=== PATIENT | female | born 1990 | race Caucasian/White ===

== ENCOUNTER 2024-06-26 20:50 | Outpatient (REF) | payer OTHER, SELFPAY | END 2024-06-26 20:51 | disposition home or self-care (01) | LOC: LAB 20:50 | PROVIDERS: PCP Obstetrics & Gynecology; Visit Provider Obstetrics & Gynecology | DX: Z01.419 Encounter for gynecological examination (general) (routine) without abnormal findings (principal) | CPT/HCPCS: 87624; 88175 ==

== ENCOUNTER 2024-07-12 15:58 | Outpatient (REF) | payer OTHER, SELFPAY | END 2024-07-12 15:59 | disposition home or self-care (01) | LOC: LAB 15:58 | PROVIDERS: Visit Provider Obstetrics & Gynecology | DX: N92.0 Excessive and frequent menstruation with regular cycle (principal) | CPT/HCPCS: 88305 ==

== ENCOUNTER 2024-08-03 14:25 | Outpatient (OUT) | payer OTHER, SELFPAY | END 2024-08-03 14:26 | disposition home or self-care (01) | PROVIDERS: Visit Provider Obstetrics & Gynecology | DX: Z01.818 Encounter for other preprocedural examination (principal); Z30.2 Encounter for sterilization; N92.0 Excessive and frequent menstruation with regular cycle; N93.9 Abnormal uterine and vaginal bleeding, unspecified; R10.2 Pelvic and perineal pain ==

== ENCOUNTER 2024-08-11 06:17 | Day surgery (SDC) | payer OTHER, SELFPAY ==
[2024-08-03 15:00] VITALS: BP 111/72; PULSE 66; TEMP 36.4; O2SAT 97; BMI 29.8
[2024-08-11] VITALS (12 sets, daily range): BP systolic 113–153; BP diastolic 64–101; PULSE 62–98; TEMP 36.1–36.2; O2SAT 90–98; BMI 29.8
--- OUTSIDE RECORDS SUMMARY | 2024-08-11 06:20 | XMS_ITS | CCD ---
Author Organization [facility] Care Team Providers Care Driver Salesman Name Role Phone Gonya, Sierra Attending Unavailable Gonya, Sierra Primary Care Unavailable Gonya, Sierra Attending Unavailable Gonya, Sierra Primary Care Unavailable Gonya, Sierra Attending Unavailable Gonya, Sierra Primary Care Unavailable Gonya, Sierra Attending Unavailable Gonya, Sierra Primary Care Unavailable Gonya, Sierra Attending Unavailable Gonya, Sierra Primary Care Unavailable Gonya, Sierra Attending Unavailable Gonya, Sierra Primary Care Unavailable REQUEST, DR NONE LISTED Primary Care Unavaila ALEXANDRA Posadas Attending Unavailable ALEXANDRA AMBROCIO Consulting Unavailable ALEXANDRA AMBROCIO Admitting Unavailable Edmond Parker Consulting Unavailable Anika Villasenor Unavailable Sierra Hardin Unavailable Doris Pizano Unavailable Corazon Goodman Unavailable WILBERTO Villasenor Primary Care Provider TERESA Corley Emergency Provider Jasbir Barr Unavailable WILBERTO Villasenor Primary Care Provider DO Handy Mcnulty Emergency Provider DO Marisol Tavarez Emergency Provider ANIKA VILLASNEOR Primary Care Unavailable CANDELARIA ABRAHAM Attending Unavailable ANIKA VILLASENOR Primary Care Physician Medina Araiza Unavailable Unavailable Lissy Bangura Unavailable Unavailable Kalyan, Amirah Unavailable Unavailable Ernst Stein Attending Unavailable Ernst Stein Attending Unavailable WILBERTO Villasenor Primary Care Provider DO Hank Baker Attending Provider HANK BAKER Attending Unavailable HANK BAKER Attending Unavailable HANK BAKER Attending Unavailable MD Maylin Lazaro Attending Provider NO FAMILY, PHYSICIAN Primary Care Provider Unava ilable Handy Mcnulty Attending Unavailable Handy Mcnulty Admitting Unavailable Anika Villasenor Primary Care Unavailable Hank Baker Attending Unavailable Hank Baker Admitting Unavailable Anika Villasenor Primary Care Unavailable Asaad, Imad Attending Unavailable Asaad, Imad Admitting Unavailable Asaad, Imad Attending Unavailable Asaad, Imad Admitting Unavailable NO FAMILY, PHYSICIAN Primary Care Unavailable Marisol Alexis Attending Unavailable Marisol Alexis Admitting Unavailable Anika Villasenor Primary Care Unavailable Allergies Allergy Classification Reported Allergen(s) Allergy Type Date of Onset Reaction(s) Facility (1 source) No Known Medication Allergies; Translations: [No Known Medication Allergies] Propensity to adverse reactions to drug (disorder) [facility] Repository Medications Current Medications Medication Drug Class(es) Dates Sig (Normalized) Sig (Original) 0.5 ML semaglutide 0.5 MG/ML Auto-Injector [Wegovy] (2 sources) inject 0.25 mg by subcutaneous injection every week Wegovy 0.25 MG/0.5ML 0.25 mg Subcutaneous Once weekly for 30 Active Albuterol (Eqv-ProAir HFA) 90 mcg/inh inhalation aerosol (1 source) Start: 04-30-2023 take 2 puff(s) by inhalation every six hours Albuterol (Eqv-ProAir HFA) 90 mcg/inh inhalation aerosol 2 puff(s), Inhalation, q6hr Shortness of breath or wheezing, 8.5 gm, Refill(s) 0, [facility]/pharmacy #[id number], 162.5, cm, 04/30/23 18:10:00 EDT, Height/Length Dosing, 106, kg, 04/30/23 18:10:00 EDT, Weight Dosing Start Date: 04/30/23 Status: Ordered amoxicillin 500 mg oral capsule (2 sources) Penicillin-class Antibacterial Start: 03-03-2023 take 1 capsule by mouth every eight hours Amoxicillin 500 MG 1 capsule Orally three times a day for 10 day(s) Feb, Active Amphetamine / Dextroamphetamine (1 source) Central Nervous System Stimulant Start: 08-12-2021 amphetamine-dextr oamphetamine 25 mg oral capsule, extended release Refill(s) 0 Start Date: 08/12/21 Status: Ordered cetirizine hydrochloride 10 mg oral tablet (1 source) Histamine-1 Receptor Antagonist Start: 06-16-2022 take 1 tablet by mouth twice daily Cetirizine HCl 10 MG 1 tablet Orally bid for 5 days May, Active dextromethorphan hydrobromide 15 mg / guaiFENesin 400 mg / pseudoephedrine hydrochloride 60 mg oral tablet (1 source) alpha-Adrenergic Agonist, Uncompetitive H-vbdzpi-J-asparta te Receptor Antagonist, Sigma-1 Agonist Start: 04-27-2023 take 1 tablet by mouth every six hours as needed for cough Capmist DM 60-15-400 MG 1 tablet Orally 6 hours as needed for cough, congestion for 7 days Apr, Active [id number] 0.3 ml EPINEPHrine 1 mg/ml auto-injector (4 sources) alpha-Adrenergic Agonist, beta-Adrenergic Agonist, Catecholamine Start: 10-06-2022 EPINEPHrine 0.3 MG/0.3ML as directed for allergic reaction Injection subcut for 30 days Sep, Active Norethindrone-E.Estradi ol-Iron (2 sources) Estrogen Start: 08-24-2021 take 1 tablet by mouth once daily Norethindrone-E.E stradiol-Iron (Blisovi 24 Fe) 1 mg-20 mcg (24)/75 mg (4) tablet Active 1 TAB PO Daily August 24, 2021 12:00am Start: 08-12-2021 Blisovi 24 FE oral tablet Refill(s) 0 Start Date: 08/12/21 Status: Ordered famotidine 20 mg oral tablet (1 source) Histamine-2 Receptor Antagonist Start: 06-16-2022 take 1 tablet by mouth every twelve hours Famotidine 20 MG 1 tablet Orally Twice a day for 7 days May, Active fexofenadine hydrochloride 180 mg oral tablet (6 sources) Histamine-1 Receptor Antagonist Start: 07-04-2024 take 1 tablet by mouth once daily Fexofenadine (Allergy Relief (Fexofenadine)) 180 mg tablet Active 180 MG PO Daily July 04, 2024 12:00am Fexofenadine HCl Active fluticasone propionate 0.05 mg/actuat metered dose nasal spray (2 sources) Corticosteroid Start: 03-03-2023 take 2 spray(s) nasal route once daily Fluticasone Propionate 50 MCG/ACT 2 sprays Nasally Once a day for 14 day(s) Feb, Active homatropine methylbromide 0.3 mg/ml / HYDROcodone bitartrate 1 mg/ml oral solution (1 source) Opioid Agonist, Cholinergic Muscarinic Agonist Start: 04-30-2023 take 5 mL by mouth every six hours homatropine-hydrocodo ne 1.5 mg-5 mg/5 mL oral syrup 5 mL, Oral, q6hr Cough, 120 mL, Refill(s) 0, [facility]/pharmacy #[id number], 162.5, cm, 04/30/23 18:10:00 EDT, Height/Length Dosing, 106, kg, 04/30/23 18:10:00 EDT, Weight Dosing Start Date: 04/30/23 Status: Ordered ibuprofen 600 mg oral tablet (1 source) Nonsteroidal Anti-inflammatory Drug Start: 06-28-2018 take 1 tablet by mouth every six hours ibuprofen 600 mg Tab 600 mg = 1 tab(s), Oral, q6hr, # 20 tab(s), Refills(s) 0, Pharmacy: [facility]/pharmacy #[id number] Start Date: 06/28/18 Status: Ordered Lactobacillus Combination No.4 (Probiotic) 3 billion cell capsule (2 sources) Start: 07-19-2024 take 3 capsules by mouth once daily Lactobacillus Combination No.4 (Probiotic) 3 billion cell capsule Active 3000 MMU CELLS PO Daily July 19, 2024 12:00am administer with a meal lamoTRIgine 200 mg oral tablet (1 source) Mood Stabilizer, Anti-epileptic Agent Start: 08-12-2021 lamotrigine 200 mg Tab Refills(s) 0 Start Date: 08/12/21 Status: Ordered 3 ml liraglutide 6 mg/ml pen injector (4 sources) GLP-1 Receptor Agonist Start: 06-18-2023 Saxenda 18 MG/3ML as directed Subcutaneous Once daily for 30 days Week one 0.6 mg once daily, week two 1.2 mg once daily, week three 1.8 mg once daily, week four 2.4 mg once daily, week 5 and beyond 3 mg daily May, Active Loratadine (4 sources) Claritin PRN Act pierre methylPREDNISolone 4 mg oral tablet (1 source) Corticosteroid Start: 06-16-2022 methylPREDNISolone 4 MG start tomorrow as directed Orally Once a day for 6 days May, Active [employer] (No Known Home Meds) (1 source) Start: 04-11-2024 [facility] [employer] (No Known Home Meds) Active April 11, 2024 12:00am omeprazole 20 mg delayed release oral capsule (15 sources) Proton Pump Inhibitor Start: 07-04-2024 take 2 capsules by mouth once daily in the morning, then take 1 capsule by mouth in the evening Omeprazole Active 40 MG PO Daily July 04, 2024 12:00am 2 capsules in the am, 1 capsule in the pm Start: 05-11-2024 End: 05-25-2024 take 1 capsule by mouth once daily omeprazole 40 mg Cap-DR 40 mg = 1 cap(s), Oral, Daily, X 14 day(s), # 14 cap(s), Refills(s) 0, Pharmacy: [facility]/pharmacy #[id number], 160, cm, 05/11/24 15:25:00 EDT, Height/Length Dosing, 78.7, kg, 05/11/24 15:25:00 EDT, Weight Dosing Start Date: 05/11/24 Stop Date: 05/25/24 Status: Ordered Start: 10-08-2023 End: 04-11-2024 take 40 mg by mouth once daily Omeprazole Discontinued 40 MG PO Daily October 08, 2023 1:00am April 11, 2024 10:23am predniSONE 20 mg oral tablet (11 sources) Start: 03-03-2023 take 1 tablet by mouth every twelve hours predniSONE 20 MG 1 tablet Orally bid for 5 day(s) Feb, Active Start: 08-16-2021 End: 08-24-2021 take 60 mg by mouth once daily at mealtime Prednisone Discontinued 60 MG PO Daily August 16, 2021 12:00am August 24, 2021 1:46pm administer with food or milk Multivitamins (1 source) Start: 05-18-2018 take 1 tablet by mouth once daily Multivitamins 1 tab(s), Oral, Daily, Refill(s) 0 Start Date: 05/18/18 Status: Ordered simethicone 180 mg oral capsule (4 sources) Start: 07-04-2024 take 1 capsule by mouth once daily at bedtime Simethicone (Gas-X Ultra-Strength) 180 mg capsule Active 180 MG PO Daily at bedtime July 04, 2024 12:00am wegovy 0.25 mg/0.5ml solution auto-injector (1 source) inject 0.25 mg by subcutaneous injection every week Wegovy 0.25 MG/0.5ML 0.25 mg Subcutaneous Once weekly for 30 Active Zofran ODT 4 mg Tab-Dis (2 sources) Start: 05-11-2024 take 1 tablet by mouth three times daily Zofran ODT 4 mg Tab-Dis 4 mg = 1 tab(s), Oral, TID, # 15 tab(s), Refills(s) 0, Pharmacy: [facility]/pharmacy #[id number], 160, cm, 05/11/24 15:25:00 EDT, Height/Length Dosing, 78.7, kg, 05/11/24 15:25:00 EDT, Weight Dosing Start Date: 05/11/24 Status: Ordered Start: 04-05-2021 take 1 tablet by hiral th three times daily Zofran ODT 4 mg Tab-Dis 4 mg = 1 tab(s), Oral, TID, # 15 tab(s), Refills(s) 0 Start Date: 04/05/21 Status: Ordered Completed/Discontinued Medications Medication Drug Class(es) Dates Sig (Normalized) Sig (Original) [id number] 200 actuat albuterol 0.09 mg/actuat metered dose inhaler (10 sources) beta2-Adrenergic Agonist Start: 08-16-2021 End: 10-08-2023 take 1 puff(s) by inhalation every four to six hours Albuterol Sulfate (Proventil Hfa) 90 mcg/actuation Hfa Aerosol Inhaler Discontinued 2 PUFF INHALATION EVERY 4-6 HOURS August 16, 2021 12:00am October 08, 2023 10:10pm with spacer take 2 puff(s) by in halation every four to six hours as needed Albuterol Sulfate HFA 108 (90 Base) MCG/ACT 2 puff as needed Inhalation Q4-6 hrs prn Active 24 hr amphetamine aspartate 6.25 mg / amphetamine sulfate 6.25 mg / dextroamphetamine saccharate 6.25 mg / dextroamphetamine sulfate 6.25 mg extended release oral capsule (9 sources) Central Nervous System Stimulant Start: 08-24-2021 End: 10-08-2023 take 1 capsule by mouth once daily, then take 1 capsule by mouth every twenty-four hours Dextroamphetamine-Amphetamine (Adderall Xr) 25 mg capsule,extended release 24hr Discontinued 25 MG PO Daily August 24, 2021 12:00am October 08, 2023 10:10pm azithromycin 250 mg oral tablet (9 sources) Macrolide Antimicrobial Start: 08-26-2021 End: 10-08-2023 take 250 mg by mouth every twenty-four hours Azithromycin Discontinued 250 MG PO Q24H 4 August 26, 2021 12:00am October 08, 2023 10:10pm benzonatate 100 mg oral capsule (9 sources) Non-narcotic Antitussive Start: 04-28-2023 End: 10-08-2023 take 100 mg by mouth three times daily Benzonatate Discontinued 100 MG PO Three times daily April 28, 2023 12:00am October 08, 2023 10:10pm cefdinir 300 mg oral capsule (9 sources) Cephalosporin Antibacterial Start: 08-26-2021 End: 10-08-2023 take 300 mg by mouth twice daily Cefdinir Discontinued 300 MG PO Twice daily 08 26August 26, 2021 12:00am October 08, 2023 10:10pm ciprofloxacin 500 mg oral tablet (8 sources) Quinolone Antimicrobial Start: 11-30-2023 End: 04-11-2024 take 1 tablet by mouth every two hours Ciprofloxacin Hcl (Cipro) 500 mg tablet Discontinued 500 MG PO Twice daily November 30, 2023 1:00am April 11, 2024 10:23am administer dose at least 2 hrs before/6 hrs after dairy products, calcium, zinc, and/or iron-containing products Start: 11-29-2023 take 1 tablet by [facility] every twelve hours Ciprofloxacin HCl 500 MG 1 tablet Orally Twice a day [facility] Nov, Active Dexamethasone (10 sources) Corticosteroid Start: 06-16-2022 DEXAMETHASONE May, 6 mg Norethindrone-E.Estr adiol-Iron (Blisovi 24 Fe) 1 mg-20 mcg (24)/75 mg (4) tablet (8 sources) Start: 08-24-2021 End: 10-08-2023 take 1 tablet by mouth once daily Norethindrone-E.Estr adiol-Iron (Blisovi 24 Fe) 1 mg-20 mcg (24)/75 mg (4) tablet Discontinued 1 TAB PO Daily August 24, 2021 12:00am October 08, 2023 10:10pm Start: 08-24-2021 End: 10-08-2023 take 1 tablet by mouth once daily Norethindrone-E.Estradiol-Iron (Blisovi 24 Fe) 1 mg-20 mcg (24)/75 mg (4) tablet Discontinued 1 TAB PO Daily August 23, 2021 11:00pm October 08, 2023 9:10pm ondansetron 4 mg disintegrating oral tablet (8 sources) Serotonin-3 Receptor Antagonist Start: 11-29-2023 End: 04-11-2024 take 4 mg by mouth every eight hours Ondansetron Discontinued 4 MG PO Q8H November 30, 2023 1:00am April 11, 2024 10:23am pantoprazole 40 mg delayed release oral tablet (8 sources) Proton Pump Inhibitor Start: 11-29-2023 End: 04-11-2024 take 1 tablet by mouth once daily Pantoprazole (Protonix) 40 mg tablet,delayed release (DR/EC) Discontinued 40 MG PO Daily November 30, 2023 1:00am April 11, 2024 10:23am probiotic (4 sources) Start: 07-04-2024 End: 07-19-2024 probiotic Discontinued PO July 04, 2024 12:00am July 19, 2024 11:47am Start: 07-04-2024 probiotic Acti ve PO July 04, 2024 12:00am promethazine hydrochloride 25 mg oral tablet (10 sources) Phenothiazine Start: 10-08-2023 End: 04-11-2024 take 25 mg by mouth three times daily Promethazine Discontinued 25 MG PO Three times daily 15 October 08, 2023 1:00am April 11, 2024 10:23am rivaroxaban 20 mg oral tablet (18 sources) Factor Xa Inhibitor Start: 08-26-2021 End: 10-08-2023 Rivaroxaban (Xarelto) 20 mg tablet Discontinued 20 MG PO Daily August 26, 2021 12:00am October 08, 2023 10:10pm must administer with evening meal This script for months 2 through 5 of the course. Start: 08-25-2021 End: 10-08-2023 take 1 tablet by mouth twice daily at mealtime Rivaroxaban (Xarelto Dvt-Pe Treat 30d Start) 15 mg (42)- 20 mg (9) tablets,dose pack Discontinued 0 PO .COMPLEX August 25, 2021 12:00am October 08, 2023 10:10pm Take one-15 mg tablet twice daily for 21 days, then one-20 mg tablet once daily; must take with meal/food sucralfate 1000 mg oral tablet (17 sources) Aluminum Complex Start: 11-29-2023 End: 04-11-2024 take 1 tablet by mouth four times daily 1 hour(s) before bedtime Sucralfate (Carafate) 1 gram tablet Discontinued 1 GM PO Four times daily 112 November 30, 2023 1:00am April 11, 2024 10:23am administer 1 hour before meals and at bedtime Start: 10-08-2023 End: 04-11-2024 take 1 tablet by mouth twice daily Sucralfate (Carafate) 1 gram tablet Discontinued 1 GM PO Twice daily 10 October 08, 2023 11:39pm April 11, 2024 10:23am Start: 10-08-2023 take 1 tablet by hiral th every twelve hours Sucralfate 1 GM 1 tablet on an empty stomach Orally Twice a day [facility] Sep, Active 24 hr venlafaxine 225 mg extended release oral tablet (9 sources) Serotonin and Norepinephrine Reuptake Inhibitor Start: 04-07-2020 End: 08-24-2021 take 225 mg by mouth once daily Venlafaxine Discontinued 225 MG PO Daily April 07, 2020 12:00am August 24, 2021 1:46pm Problems Active Problems Problem Classification Problem Date Documented Da te Episodic/Chronic Abdominal pain (17 sources) Abdominal pain; Translations: [Unspecified abdominal pain] Onset: 10-08-2023 11-30-2023 Episodic Allergic reactions (20 sources) Other urticaria; Translations: [Anaphylaxis] Onset: 06-16-2022 Resolved: 06-16-2022 Episodic Anxiety disorders (20 sources) Anxiety; Translations: [Other specified anxiety disorders] Onset: 02-17-2022 Resolved: 02-17-2022 Chronic Attention-deficit, conduct, and disruptive behavior disorders (11 sources) Attention deficit hyperactivity disorder, predominantly inattentive type; Translations: [Attention-deficit hyperactivity disorder, predominantly inattentive type] Chronic Attention-deficit, conduct, and disruptive behavior disorders (1 source) Attention-deficit hyperactivity disorder, predominantly inattentive type Onset: 02-17-2022 Resolved: 02-17-2022 Chronic Attention-deficit, conduct, and disruptive behavior disorders (9 sources) Attention deficit hyperactivity disorder; Translations: [Attention-deficit hyperactivity disorder, unspecified type] 08-24-2021 Chronic Complication of device; implant or graft (7 sources) Malposition of intrauterine contraceptive device; Translations: [Displacement of intrauterine contraceptive device, initial encounter] 11-30-2023 Episodic Gastritis and duodenitis (9 sources) Gastritis; Translations: [Gastritis, unspecified, without bleeding] Onset: 05-11-2024 10-08-2023 Episodic Gastrointestinal hemorrhage (9 sources) Black feces; Translations: [Melena] Onset: 07-27-2024 07-04-2024 Episodic Miscellaneous mental health disorders (4 sources) Binge eating disorder; Translations: [Binge eating disorder] Chronic Mood disorders (1 source) Depressive disorder 02-02-2014 Chronic Nausea and vomiting (20 sources) Nausea and vomiting; Translations: [Nausea with vomiting, unspecified] Onset: 11-29-2023 11-30-2023 Episodic Noninfectious gastroenteritis (7 sources) Colitis; Translations: [Noninfective gastroenteritis and colitis, unspecified] 11-30-2023 Episodic Open wounds of head; neck; and trunk (9 sources) Laceration of tongue; Translations: [Laceration without foreign body of oral cavity, initial encounter] 04-07-2020 Episodic Other gastrointestinal disorders (5 sources) Abdominal bloating; Translations: [Abdominal distension (gaseous)] 04-11-2024 Episodic Other gastrointestinal disorders (5 sources) Finding of bowel action; Translations: [Other specified symptoms and signs involving the digestive system and abdomen] 04-11-2024 Episodic Other gastrointestinal disorders (2 sources) Abdominal distension (gaseous); Translations: [Flatulence, eructation, and gas pain] 04-11-2024 Episodic Other gastrointestinal disorders (2 sources) Other specified symptoms and signs involving the digestive system and abdomen; Translations: [Other symptoms involving digestive system] 04-11-2024 Episodic Other gastrointestinal disorders (4 sources) Diarrhea; Translations: [Diarrhea, unspecified] 07-04-2024 Episodic Other gastrointestinal disorders (5 sources) Diarrhea, unspecified; Translations: [Diarrhea] Onset: 07-27-2024 07-04-2024 Episodic Other lower respiratory disease (3 sources) Cough; Translations: [COUGH] Onset: 08-18-2021 Episodic Other nutritional; endocrine; and metabolic disorders (5 sources) Body mass index 40+ - severely obese; Translations: [Morbid (severe) obesity due to excess calories] Chronic Other nutritional; endocrine; and metabolic disorders (2 sources) Morbid (severe) obesity due to excess calories Chronic Other nutritional; endocrine; and metabolic disorders (1 source) Abnormal weight gain Episodic Other screening for suspected conditions (not mental disorders or infectious disease) (1 source) Other specified abnormal findings of blood chemistry; Translations: [OTH SPEC ABNORMAL FINDINGS BLD CHEM] Onset: 08-19-2021 Episodic Other upper respiratory infections (3 sources) Acute laryngitis; Translations: [Acute upper respiratory infection, unspecified] Episodic Otitis media and related conditions (1 source) Otitis media, unspecified, left ear Episodic Pneumonia (except that caused by tuberculosis or sexually transmitted disease) (10 sources) Bacterial pneumonia; Translations: [Unspecified bacterial pneumonia] 08-26-2021 Episodic Pneumonia (except that caused by tuberculosis or sexually transmitted disease) (1 source) Pneumonia (except that caused by tuberculosis or sexually transmitted disease); Translations: [PNEUMONIA D/T CORONAVIRUS DIS 2019] Onset: 08-19-2021 Pulmonary heart disease (20 sources) H/O: pulmonary embolus; Translations: [Personal history of pulmonary embolism] Onset: 02-17-2022 Resolved: 02-17-2022 Episodic Substance-related disorders (1 source) Smoker 02-28-2017 Chronic Comment on above: Added secondary to d ocumentation in Social History. Substance-related disorders (6 sources) Cannabis abuse; Translations: [Cannabis use, unspecified, uncomplicated] 04-11-2024 Episodic Viral infection (20 sources) COVID-19; Translations: [Pneumonia due to COVID-19 virus] 08-24-2021 Episodic Viral infection (1 source) COVID-19; Translations: [COVID-19] Onset: 08-19-2021 Past or Other Problems Problem Classification Problem Date Documented Date Episodic/Chronic Ectopic (1 source) Abdominal Onset: 04-18-2011 02-02-2014 Episodic Unclassified (1 source) Androstenedione (substance) 12-13-2010 Unclassified (1 source) Onset: 11-22-2017 Resolved: 06-27-2018 06-29-2018 Results Test Name Value Interpretation Reference Range Facility Amphetamine Screen Ql (U)Ord ered By: Maylin Lazaro on 07-28-2024 Amphetamines Ql (U) Negative Negative [facility] Barbiturates [Presence] in U rine by Screen methodOrdered By: Maylin Lazaro on 07-28-2024 Barbiturates Screen Ql (U) Negative Negative [facility] Benzodiazepines Screen Ql (U )Ordered By: sammi Lazaro on 07-28-2024 Benzodiazepines Ql (U) Negative Negative [facility] Benzoylecgonine [Presence] i n Urine by Screen methodOrdered By: sammi Lazaro on 07-28-2024 Benzoylecgonine Screen Ql (U) Negative Negative [facility] Cannabinoids [Presence] in U rine by Screen methodOrdered By: Maylin Lazaro on 07-28-2024 Cannabinoids Screen Ql (U) Positive High Negative [facility] Comment on above: These are unconfirme d results and should not be used for legal purposes. Drug Cut-Off Concentration: AMPH 1000 ng/mL PATEL 200 ng/mL SHADIA 200 ng/mL COCM 300 ng/mL OP 300 ng/mL PCP 25 ng/mL THC 20 ng/mL Drug Screen,Urineon 07-28-20 24 Amphetamine Screen,Urine Negative Normal Negative [facility] Comment on above: Performed By: #### U RDS #### [place] [id number] [place] Barbiturate Screen,Urine Negative Normal Negative [facility] Comment on above: Performed By: #### U RDS #### [place] [address] [place] Benzodiazepines Screen,Urine Negative Normal Negative [facility] Comment on above: Performed By: #### U RDS #### [place] [address] [place] Cannabinoid Screen,Urine Positive High Negative [facility] Comment on above: Result Comment: Thes e are unconfirmed results and should not be used for legal purposes. Drug Cut-Off Concentration: AMPH 1000 ng/mL PATEL 200 ng/mL SHADIA 200 ng/mL COCM 300 ng/mL OP 300 ng/mL PCP 25 ng/mL THC 20 ng/mL PERFORMED BY: [place] [address] PATHOLOGIST FLUX TUBE ATTENDANT RODNEY BRITTON M.D. Performed By: #### U RDS #### [place] [address] [place] Cocaine Screen,Urine Negative Normal Negative [facility] Comment on above: Performed By: #### U RDS #### [place] [address] [place] Opiate Screen,Urine Negative Normal Negative [facility] Comment on above: Performed By: #### U RDS #### [place] [address] [place] Phencyclidine Screen,Urine Negative Normal Negative [facility] Comment on above: Performed By: #### U RDS #### [address] HCG ( test) [place].rapi d Ql (U)Ordered By: Maylin Lazaro on 07-28-2024 HCG ( test) Ql (U) Negative [facility] HCG,Urineon 07-28-2024 Beta HCG ( test) Ql (U) Negative Normal [facility] Comment on above: Result Comment: PERF ORMED BY: [place] [address] PATHOLOGIST FLUX TUBE ATTENDANT RODNEY BRITTON M.D. Performed By: #### C , [facility] [place], [facility] #### [facility] [id number] [address] 07-28-2024 L Specimen: [id number] Received: 07/31/24 Status: GRANT Akers Num: [id number] Spec Type: Surgical Subm Dr: Maylin Lazaro MD Tissues: A Colon Biopsy (DUO BX R/O CELIAC) B GASTRIC FOR HP (GASTRIC R/O H PYLORI) C Colon Biopsy (RANDOM COLON R/O MICROSCOPIC) D Colon Biopsy (SIGMOID POLYP) Procedures: HE/8, Gross/Micro L4/4, H PYLORI Age/ Patient Sex Location Account Attending Physician Luis Miguel Temple 34/F [id number] Maylin Lazaro MD SPEC NUM: [id number] RECD: 07/31/24 STATUS: GRANT COHENMaranda NUM: [id number] SHANIA: 07/28/[address]: Maylin Lazaro MD ENTERED: 07/31/24 [facility] DR: SPEC TYPE: Surgical DEPT: S ENTERED BY: [id number] RECV BY: [id number] ORDERED: HE/8, Gross/Micro L4/4, H PYLORI ORDERED: HE/8, Gross/Micro L4/4, H PYLORI Pathological Diagnosis A, duodenal biopsy: -Duodenal mucosa with mild insignificant stromal chronic inflammation, and also only occasional insignificant lymphocytic exocytosis noticed, therefore also no obvious features of celiac sprue in the examination B, gastric biopsy: -Antral and oxyntic mucosa with mild reactive gastropathy and only minor congestion noted without other specific findings -H. pylori immunostain with appropriate control is also negative for identified Helicobacter organism or infection C, random colon biopsy: -Benign colonic mucosa without any abnormal stromal chronic inflammation, microscopic colitis, or any other specific findings D, sigmoid polyp biopsy: Specimen: [id number] Received: 07/31/24 Status: GRANT Akers Num: [id number] Spec Type: Surgical Subm Dr: Maylin Lazaro MD Tissues: A Colon Biopsy (DUO BX R/O CELIAC) B GASTRIC FOR HP (GASTRIC R/O H PYLORI) C Colon Biopsy (RANDOM COLON R/O MICROSCOPIC) D Colon Biopsy (SIGMOID POLYP) Procedures: HE/8, Gross/Micro L4/4, H PYLORI Patient: Luis Miguel Temple [id number] (Continued) Specimen: Received: 07/31/24 (Continued) Pathological Diagnosis (Continued) Signed (signatur e on file) Benoit Han MD 08/07/24 1825 Specimen: [id number] Received: 07/31/24 Status: GRANT Akers Num: [id number] Spec Type: Surgical Subm Dr: Maylin Lazaro MD Tissues: A Colon Biopsy (DUO BX R/O CELIAC) B GASTRIC FOR HP (GASTRIC R/O H PYLORI) C Colon Biopsy (RANDOM COLON R/O MICROSCOPIC) D Colon Biopsy (SIGMOID POLYP) Procedures: , Gross/Micro L4/4, H PYLORI Patient: Luis Miguel Temple [id number] (Continued) Specimen: [id number] Received: 07/31/24-1107 (Continued) Pathological Diagnosis (Continued) -Small hyperplastic polyp Clinical Information Abdominal pain, nausea and vomiting, diarrhea, black stool Gross Description Part a received in formalin with the patient's name and duodenal biopsy is a kellogg portion of soft tissue measuring 0.5 cm in greatest dimension. The specimen is entirely submitted in cassette A1. Part B received in formalin with the patient's name and gastric and consists of 2 kellogg portions of soft tissue measuring 0.3 and 0.4 cm in greatest dimension. The specimen is entirely submitted in cassette B1. Part C received in formalin with the patient's name and random colon biopsy are 2 kellogg portions of soft tissue measuring 0.2 and 0.3 cm in greatest dimension. The specimen is entirely submitted in cassette C1. Part D received in formalin with the patient's name and sigmoid polyp is a kellogg soft tissue fragment measuring 0.3 cm in greatest dimension. The specimen is entirely submitted in cassette D1 Microscopic Description Microscopic examinations are performed supporting the above interpretation CPT Codes 55847J 4 Specimen: [id number] Received: 07/31/24 Status: GRANT Akers Num: [id number] Spec Type: Surgical Subm Dr: Maylin Lazaro MD Tissues: A Colon Biopsy (DUO BX R/O CELIAC) B GASTRIC FOR HP (GASTRIC R/O H PYLORI) C Colon Biopsy (RANDOM COLON R/O MICROSCOPIC) D Colon Biopsy (SIGMOID POLYP) Procedures: HE/8, Gross/Micro L4/4, H PYLORI Patient: Luis Miguel Temple [id number] (Continued) --- (more content not included)... Normal [facility] Opiates [Presence] in Urine by Screen methodOrdered By: Maylin Lazaro on 07-28-2024 Opiates Screen Ql (U) Negative Negative [facility] Phencyclidine Screen Ql (U)O rdered By: Imad Asaad on 07-28-2024 Phencyclidine Ql (U) Negative Negative [facility] Calprotectin, Fecalon 2023 Calprotectin, Fecal 118 Normal 0-120 [facility] Comment on above: Result Comment: Conc entration Interpretation Follow-Up < 5 - 50 ug/g Normal None >50 -120 ug/g Borderline Re-evaluate in 4-6 weeks >120 ug/g Abnormal Repeat as clinically indicated Performed at: - [facility] [id number] Pattern Finisher: Estee Traore MD, Phone: [phone] PERFORMED BY: [place] [address] PATHOLOGIST FLUX TUBE ATTENDANT RODNEY BRITTON M.D. Performed By: #### C [facility], [facility] [place] #### [address] 07-12-2024 L Specimen: [id number] Received: 07/28/24 Status: GRANT Akers Num: [id number] Spec Type: Surgical Subm Dr: Hank Baker Tissues: A Endometrium - Biopsy (EMBX) Procedures: Gross/Micro L4 Age/ Patient Sex Location Account Attending Physician Luis Miguel Temple 34/F [facility] [id number] Hank Baker SPEC NUM: [id number] RECD: 07/28/24 STATUS: GRANT AKERS NUM: [id number] SHANIA: 07/12/[address]: Hank Baker ENTERED: 07/28/24 [facility] DR: Maria Luisa,Lab SPEC TYPE: Surgical DEPT: DONALD [place] ENTERED BY: [id number] RECV BY: [id number] ORDERED: Gross/Micro L4 ORDERED: Gross/Micro L4 Pathological Diagnosis Endometrial biopsy: -Patchy superficial stromal decidualization in few strips of uncertain cause -Focal decidual necrosis is also noted in 1 fragment -Only occasional small tubular glands of mild proliferative type -Occasional small foci of mild acute and chronic inflammation are also noticed -No evidence of hyperplasia or atypia -Occasionally admixed portion of endocervical tissue without dysplasia Clinical Information Menorrhagia Gross Description The specimen was received in formalin with the patient's name and endometrial biopsy are multiple kellogg-pink mucoid, hemorrhagic soft tissue fragments measuring 2.0 x 1.0 x 0.3 cm in aggregate. The specimen is filtered and entirely submitted in cassette A1. Specimen: [id number] Received: 07/28/24 Status: GRANT Delphine Num: [id number] Spec Type: Surgical Subm Dr: Hank Baker Tissues: A Endometrium - Biopsy (EMBX) Procedures: Gross/Micro L4 Patient: Luis Miguel Temple [id number] (Continued) Specimen: [id number] Received: 07/28/24 (Continued) Signed (signatur e on file) Benoit Han MD 07/31/24 0835 Specimen: [id number] Received: 07/28/24 Status: GRANT Akers Num: [id number] Spec Type: Surgical Subm Dr: Hank Baker Tissues: A Endometrium - Biopsy (EMBX) Procedures: Gross/Micro L4 Patient: Luis Miguel Temple [id number] (Continued) Specimen: [id number] Received: 07/28/24 (Continued) Microscopic Description Microscopic examinations are performed supporting the above interpretation CPT Codes 45547 Specimen: [id number] Received: 07/28/24 Status: GRANT Cohenmaranda Num: [id number] Spec Type: Surgical Subm Dr: Hank Baker Tissues: A Endometrium - Biopsy (EMBX) Procedures: Gross/Micro L4 Patient: Luis Miguel Temple [id number] (Continued) Signed (signatur e on file) Benoit Han MD 07/31/24 0835 [facility] L Specimen: [id number] Received: 07/13/24 Status: GRANT Delphine Num: [id number] Spec Type: Surgical Subm Dr: Hank Baker Tissues: A Endometrium - Biopsy Procedures: HE/2, Gross/Micro L4 Age/ Patient Sex Location Account Attending Physician Luis Miguel Temple 34/F LABE[facility] [id number] Hank Baker SPEC NUM: [id number] RECD: 07/13/24 STATUS: ANELBernice AKERS NUM: [id number] SHANIA: 07/12/24-[address]: Hank Baker ENTERED: 07/13/[address]: SPEC TYPE: Surgical DEPT: S ENTERED BY: [id number] RECV BY: [id number] ORDERED: HE/2, Gross/Micro L4 ORDERED: HE/2, Gross/Micro L4 Supplemental Report Addendum 1 Entered: 07/31/24 Supplemental to discard all the information stated in this case: -This patient had a wrong registration of the surgical pathological case number. -Please disregard all the information stated herein Addendum Signed (signature on file) Ced-Miko Han MD 07/31/24841 Pathological Diagnosis Endometrial biopsy: -Patchy superficial stromal decidualization in few strips of uncertain cause -Focal decidual necrosis is also noted in 1 fragment -Only occasional small tubular glands of mild proliferative type -Occasional small foci of mild acute and chronic inflammation are also noticed -No evidence of hyperplasia or atypia -Occasionally admixed portion of endocervical tissue without dysplasia Specimen: [id number] Received: 07/13/24 Status: GRANT Akers Num: [id number] Spec Type: Surgical Subm Dr: Hank Baker Tissues: A Endometrium - Biopsy Procedures: HE/2, Gross/Micro L4 Patient: Lucita Templekarishma Broderick [id number] (Continued) Specimen: [id number] Received: 07/13/24 (Continued) Signed (signatur e on file) Benoit Han MD 07/17/24 1339 Specimen: [id number] Received: 07/13/24 Status: GRANT Akers Num: [id number] Spec Type: Surgical Subm Dr: Hank Baker Tissues: A Endometrium - Biopsy Procedures: DAVID/Sariah Henao/Nelson L4 Patient: Luis Miguel Temple [id number] (Continued) Specimen: [id number] Received: 07/13/24 (Continued) Clinical Information Menorrhagia Gross Description The specimen was received in formalin with the patient's name and endometrial biopsy are multiple kellogg-pink mucoid, hemorrhagic soft tissue fragments measuring 2.0 x 1.0 x 0.3 cm in aggregate. The specimen is filtered and entirely submitted in cassette A1. Microscopic Description Microscopic examinations are performed supporting the above interpretation CPT Codes 59721 Specimen: [id number] Received: 07/13/24 Status: GRANT Akers Num: [id number] Spec Type: Surgical Subm Dr: Hank Baker Tissues: A Endometrium - Biopsy Procedures: HE/2, Gross/Micro L4 Patient: Luis Miguel Temple [id number] (Continued) Signed (signatur e on file) Benoit Han MD 07/17/24 1339 Normal [facility] ED Note-Physicianon 05-26-20 ED Note-Physician ED Note-Physician Basic Information Time Seen: Colin Nguyen PA-C 05/11/2024 15:19 Chief Complaint nausea. hx of ulcers. feels like its related. been taking a lot of tums. no pain History of Present Illness 34-year-old female comes to the ED for evaluation of nausea and vomiting. States has a history of peptic ulcer disease. She manages with efqu-jlw-jtgcxpz medications. Over the last few days she has had worsening nausea or vomiting. She has had some occasional epigastric abdominal pain but no pain currently. She took MiraLAX and Tums at home. No fever, chills. No previous abdominal surgeries. No concern for with no recent sexual intercourse. Review of Systems A 10 point review of systems is negative except as noted above. Medical and Surgical History: Reviewed and noted Social history: Lives at home Tobacco: Denies Physical Exam Vitals & Measurements T: 37 ?C(Oral) HR: 77(Peripheral) RR: 18 BP: 121/78 SpO2: 98% HT: 160.02 cm WT: 78.7 kg BMI: 30.73 Nurses notes and vital signs reviewed and patient is not hypoxic. General: The patient appears well, resting comfortably. Skin: Warm, dry. Head: Atraumatic. Neck: No JVD. Eye: Normal conjunctiva. Ears, Nose, Mouth, and Throat: Moist mucous membranes. Cardiovascular: Strong distal pulses. Chest wall: Respiratory: Respirations are nonlabored. Back: Normal range of motion. Musculoskeletal: Normal ROM with no gross deformity. Gastrointestinal: Soft and nontender Urological: Neurological: Awake and alert. No focal deficits. Follows commands. Psychiatric: Cooperative. Medical Decision Making Patient abdomen is soft and nontender. Laboratory studies are reviewed and noted. She was treated here with IV fluids, Protonix and Zofran. On repeat evaluation she feels much improved. Taking oral hydration well. She is discharged home with pantoprazole, Zofran, and given GI follow-up. Patient was encouraged to return to the ED if symptoms worsen or change. Assessment/Plan Gastritis (K29.70: Gastritis, unspecified, without bleeding) Nausea & vomiting (R11.2: Nausea with vomiting, unspecified) Orders: omeprazole, 40 mg = 1 cap(s), Oral, Daily, X 14 day(s), # 14 cap(s), Refills(s) 0, Pharmacy: [facility]/pharmacy #[id number], 160, cm, 05/11/24 15:25:00 EDT, Height/Length Dosing, 78.7, kg, 05/11/24 15:25:00 EDT, Weight Dosing ondansetron, 4 mg = 1 tab(s), Oral, TID, # 15 tab(s), Refills(s) 0, Pharmacy: [facility]/pharmacy #[id number], 160, cm, 05/11/24 15:25:00 EDT, Height/Length Dosing, 78.7, kg, 05/11/24 15:25:00 EDT, Weight Dosing ondansetron, 4 mg = 2 mL, Injection, IV Push, Once, Stop date 05/11/24 15:35:00 EDT, STAT, Start date 05/11/24 15:35:00 EDT, 05/11/24 15:35:00 EDT pantoprazole, 40 mg = 10 mL, Injection, IV Push, Once, Stop date 05/11/24 15:35:00 EDT, STAT, Start date 05/11/24 15:35:00 EDT, 05/11/24 15:35:00 EDT Sodium Chloride 0.9% intravenous solution, 1,000 mL, Soln-IV, IV, Once, Stop date 05/11/24 15:35:00 EDT, STAT, Start date 05/11/24 15:35:00 EDT, Infuse over 61, minute(s) Basic Metabolic Panel CBC w/ Auto Diff eGFR Extra Blue Tube Extra SST Tube Hepatic Function Panel Lipase Level UA with Cult Rflx Urine Culture Medications Administered Given NS 1000 ml Bolus, 1000 mL, IV ondansetron 4 mg/2 mL Inj, 4 mg, IV Push pantoprazole 40 mg IV Inj, 40 mg, IV Push Disposition Plan Patient Discharge Condition Disposition: Discharged home Condition: Improved and stable Counseled: Patient and/or family were counseled to workup, results, treatment plan and follow-up recommendations Discharge Prescription List Prescriptions omeprazole 40 mg Cap-DR, 40 mg= 1 cap(s), Oral, Daily Zofran ODT 4 mg Tab-Dis, 4 mg= 1 tab(s), Oral, TID Follow-up With When Contact Information Eric Carmona In 3 days 05/14/[address] [facility], [address] [phone]- [phone] Business (1) Additional Instructions: Patient Education Gastritis, Adult Nausea and Vomiting, Adult Attestation I performed a substantive part of the MDM during the patient?s E/M visit. I personally made or approved the documented management plan and acknowledge its risk of complications. (Independent Interpretation) My (EKG/X-Ray/US/CT) interpretation as above. (Discussion) Management/test interpretation discussed with APC. This report was transcribed using voice recognition software. Every effort was made to ensure accuracy, however, inadvertently computerized research professor mistakes may be present. Appropriate healthcare PPE was used in evaluating this patient. Problem List/Past Medical History Ongoing ABDOMINAL Smoker Historical ADD Depression Medications Inpatient No active inpatient medications Home Albuterol (Eqv-ProAir HFA) 90 mcg/inh inhalation aerosol, 2 puff(s), Inhalation, q6hr, PRN amphetamine-dextroa mphetamine 25 mg oral capsule, extended release Blisovi 24 FE oral tablet homatropine-hydroco done 1. (more content not included)... Normal [facility] Comment on above: Result Comment: Elec tronically Signed By: Colin Nguyen PA-C\.br\Date and Time Signed: 05/11/24 17:53 EDT\.br\Electronically Co-Signed By: Ernst Stein MD\.br\Date and Time Co-Signed: 05/26/24 10:31 EDT C Urineon 05-13-2024 Bacteria identified Cx Nom (U) Microbiology PROCEDURE: Urine Culture [R1] SOURCE: U CleanCatch BODY SITE: COLLECTED DATE/TIME: 05/11/2024 15:52 EDT RECEIVED DATE/TIME: 05/11/2024 16:43 EDT START DATE/TIME: 05/11/2024 16:43 EDT FREE TEXT SOURCE: Wendy SMITH, Colin Nguyen PA-C, Colin FINAL REPORTS Final Report [] Verified Date/Time: 05/13/2024 09:18 EDT 3,000 cfu/ml Mixed skin contaminants Performing Locations R1: This test was performed at: [facility], [address] [place] [address], [address]- , , [facility] Comment on above: Performed By: #### [id number] #### [facility] [address] [place] [address] Coding Summary.on 05-12-2024 Coding Summary. FQGUAvmk72XTs5hEs+P GhlYWQ+GZ8EOZKhJ97i lBAabI6sW2UJMFqMPoz gQVBQTElOSyIgbmFtZT 1kaXNjZXJu IC8+OB8xUDRgPvcrmAM oo0B7cPI6W41jvk4mRD oycTX2YLSfKrOvkdabc 8naoEy1ITuuXyhwEkEj OCVeqG47QUH3iN81Ll3 6aDJlgAByw5vpnVt7Po VpFXRbIPR4mHefVXbjn 1LsEXYyO58cfAVze4T6 IGNvbGxhcHNlOyBlbXB 2bA5lYRxnrvtvw7cexj xlMth3oh24hJHoo6P1n WO5T0SnuuA9RQStvYVu FtpruWGBeT2sncftf7n evfpsOzCiVFItMLr0TP g6JIXdtZqtNhDjJP35O HT9NERcnfEcX2GfVSQa vWosOlJ5s1W2Zb2QK4O TYlecZ5CAMENXHQjguF Q+IP45oi17S3UjQyscU pq5RJFsZPU6fIO4pM0m JGYaCMvmi7G3pZD1S1Y wpgEpzd3ni4trEEQwTA yeM14xtIHxx6U7NBNlj AG5MGWljUxwZwEnxU91 Oyc+QAIlzDieg1AdSil zv3cip6epqVh4KrwiJW WuneCbcOhoPBZ6t7XsT y5kDFWfoHX8fYW0qL1b IbTaDsW6DFcsZ738LqU fgZVyCoatR10xN8AhoR A+CFJuWkg8TUHisLdvE G9wW3BtCXEzigldoUBt cJhuBI6iCCVefemyPZZ wpK0nBQCkS9u2GyOkVa O8VOwfE2JyNYFsptfxS m47oJ8qCyIiCxU7XAth B1IkimQ6GZVayDHnSWr mDWH5C67ly5W7SKVyXJ YkKVU2qCC2uP4cxNblu jogbGVmdDsgdmVydGlj RRvtYSlyI542VUKczRc nPkNvZGluZyBEYXRlOi AgMDYvMjEvMjAyNDwvd GQ+TJCsRFJ7pVohXGKx qNPhGJkvUg9qtZvpyUb cJX7hIZMtdxetZEWudP 3dLFMlrVUvfHjyGX8yA CLuapacj151KoOkLHT5 KJFxlQMrO8GqvX9oGoT aYOAfECUhL8VweHWcHU ihT767CSboZqP0ATNot rIeN8LsPOFaxQwxAuP4 w7S4Gt5Te9PibcgmT0Z kmZMlQsKyVahtIXb9J4 RkPjwvdHI+ND43YFEgR J98JCm2JET4xRkxUQkh XYTgI1ZweL8bJlIdELE kZGRkOyc+PHRhYmxlIH dpZHRoPScxMDAlJyBzd TcmAU0aMf7nQJGaNMIr eMsxaPPxApMng6bhYEH xATufIZ9rkHxsH7NcmR B6YPSvl5g3Rb80Y99nZ 3JvdXA+PNGdkCN3lQH6 bT2mLqArEmK6LVzxJ66 4IlXpnOGgZdxgp5gxt5 jovGe7QwS2QAPqntVis EiaCJK2h4RnJt52P18x IHdpZHRoPSIxNSUiIHZ cuAeiij6exZ0nTj5+PG KviRP3eHG5lC5zTxVuI eR6YVbaW127GgAkhVYn Njtjo7sof5ymrUk9AgU qALZorgMeoTfyZVO0q1 TeIx07O4SesJnsm9YzE fh4fm88eIIwa2U2tEK6 N0ApFITnqxjaoFCkgJq zJJ7wECLaqiltEGJmxP 7lZXTiJ9y4UiZdCqZ5L QwvU5MibnI9HLOflGBu SPGgjWHGsJ6pziack5i ykdcxCaHjBGAhDGo9XR i8LQXexWeqIgMxBIE7Y pD0ZJX1mROwkQ2syXka ewgbiN3tPhi+YJX5sXE oiKVVYO1tIjqbdXR+PH AqZXO6hWucCRutXCBfo N5cYSEyY7z0UdIlVkP0 QHxcS5ErpmZ9OTUprPE lOCRfoFCKzG3btboug2 vbzvepUsZvYLBvWJf4W Vm0FVWzhAqmBxAlWXT5 MzY7TPC8uHJkuR0nnMk edmenyL8gKwb+QmlydG yjDND0XVa6Q1PoVvk8Q ZLwgAvpQI4ytVNnJUkf Ko5ayMkzxQiwFN6uTTO sswxec938PdDvx8rwFQ BcuZLcHVdjACF0A54qh 1P2JWFkDUCfETS5oCG4 rH9bnUhnavouyZHzsIk gdmVydGljYWwtYWxpZ2 28SYBxpIctPcNdFLy0C 8TfApm6DNVkbNkdQC6b oWTyLFvhNf9iiAjhsJo oTW5vQVTkvbqxe396Zd Nbo4xjOTKqxVFuIGbpR DR0M26fp3T5GWDcAAZx RYW4aEQ6eC4zfEpwjai gbGVmdDsgdmVydGljYW vyZOxtX521WBBwzUvrF rOcdYa1U2CqGfz2TTDe zWwfJI9niZHiBNuhXw7 heGjxkImbXT6uTJIwum xlq951TgOur6btQXFux NPlJBryEXF3O64ag5G1 SDMzDEGtKZD2dLC9kG6 hbGlnbjogbGVmdDsgdm IesAtdFIxaBCtuC478E HRvcDsnPlBhdGllbnQg OPjwJMc2P8KjUeaqtCO +TQ61MOMuPW19uSOflU Vfz1pxcLf6TaZbHKPeK JP0xCsxUKnhi4RyQKHp U02wyRXpo2P4FLSfqQl hvDNkJfIpfOA0tF8gQE qrbocmn3fbapckRncvg 7kakl37aT38W79sVSkk ZHRoPSIzMCUiIHZhbGl lxc1htV3vYb4+PGNvbC N9sAT2iB3rZZRdOeC5C BbzN022WkPfaGTzOiac m7bay4ifxMp3YlA7ZDG tofBhjUngYSM2c2IlOc 77X61cALvhCUBySOYeZ FGrWGTngFiytj7jtB8c Ii8+GXVnsPY5iAR2tB0 fObLaUtS8OSbrK096Hs QzuDTmUgcgW49cQ9Ryz XA+ZLXcDlb7PKAioSwu AZ1qlFCiQPmuPo8gSHD 7BcSfTbTeLWzbB3NsIW AnugwqvesivFC9MLNvU JLhtB77Ds2jwTdmRJBe zPSMcW5yrkftb6fwhqp jYtWiDLKmKYo8CPd8EP TruGwwIhNmHIN1UaA0E RD9rFCyaM2lhVzyrmlk hG9uY0BmIKUwixztMh8 0mV6cXmIkAjF0YAdwSq c+B7GPZbfoKukXJyOTE UlUSDwvdGQ+PHRkIHN0 pOueELthGDQctM2fVOU hU7e6SiXzCnQ4CCwyE2 PlSYApktqsSm09hY5oL mIpNeX3MFkoI4LmweW5 AAJdnQRhZUupUHH9N20 ah3A0RGTeMSEeAEQ4sF R8xA5wfKkaowiqyXMxy DsgdmVydGljYWwtYWxp U906QOXdbYuvEgZ1KqM 2MnA3MSO8R1OcTog2PJ ZduMuxMF0dwPOaMMhnK t8kpJpmdHvqHF1aWCGn tfnxVRQciA2uPIWqhDF grRwfAB5uJQWeefeav5 53NkOqLHN9LHDfnLKoP 1FvaF6oTgBnJRCzROGw I6AqyVBeTJaiD883FFp xZvZ8RRAomcMvD9ScKI ZslSvlXkG6f6Q4Jk5qS iBZZWFyczwvdGQ+PHRk NVH7vVonYKajQFImcB6 qLAIrS5h1ChNvUlB2KX mjO5QnXXVpqgotYt36k N7aWtJzKlG6UTqpC1Sc guS5UQApoTUyGHivGTR 2V94mq1O6NFArAFXfZY U1qVS6kG5amZpihcymh GVmdDsgdmVydGljYWwt RIqsX692PRXvyLctWoR lbWFsZTwvdGQ+PHRkIH V0zQzkYEgrKCJfcS9pW TAbI0q6UlPrRkB4NWie A7MkLRWoooulVg63oK7 kFhAmFtM5PXscZ2Obyy P0JGMcgCQrEVajAJQ3L 53tk4G7LHWgEHPvQIZ5 sAA9sA4tgMpxqheygVS mdDsgdmVydGljYWwtYW seZ324IGPfyQmjEvGlV BUyCT4eoIhlcPQ+PC90 qi73J8RyRysnFhl3UYI mKDH0pCD5tZ6lHJHjPX rqp1M2bPK4H1XuwxWcb n0hl3ifAYLaFUohT76n qXAmu6M5PKPkqAH7CII prKmrFtRmuB29Yvd+PG TbbKqvq4BcEvzfk2hac 8xfvAw2OjSvHUYvegYp wMvnOBA2d0ZdMj39J15 sIHdpZHRoPSIzMCUiIH OhkYzlxq5kiW9gMs2+P WRzfFA6kZQ4eZ2hFsQv RvR9LLprF633DoLngHH qLvfdm8rie5uulFw2Ol FcCSZppzGmnJruOCD6r 2UmXg73G6IybUdrs0Pz Hjj7ut44vCEmt4N0bPR 5L5OjHNVhykwqgWXuzN ohDF5tFRGdozhwIGVql O7xHGCeK1f1WnZsRnX2 PJpaY5NbmpL1EMPrdMF iKEJhjWXKoZ3vuooyq4 akxmpfAgPwTCNsPWt9O Mt7ABAwiVdiGoCoHYQ2 XfV2RWR8jFOamB5pgNl mjuydmO2eYyi+UGh5c2 ixvCFbKR2qjFM0RQ06E W21xURwg1N8eXM7L8Sv RPDywhlajaweqMI3FQI hAJNuvC55Hr3heFoqRl 5sVSPgKAO7WIXzoWBgD 1JwxQ9bLbSwYSNeIIPc G7YprFTyYJerS217JDh iFtR6YBOrhoFaT8WyJG QmpDruLdF4m0G3Wh3YW X61XS33NY69mKBjf1C6 nRJ5L8RhCRNwlfhbtxh rcDG3KWSaNXNzsG60Ec 6myDxjMl2uYYVnBRD8J XGyxFSmQ9FcxW2tUnOg PAKdCAWmD2MetZXiKOi uR469VMqvGpS8XIYeyi SjV2DjOQNttIerIiT2r 7N7Ev2VHt36PA92QV55 wZOjk2Z1wSC8P0OfDWT wapiglicvhJY8SAQaSF WzhI04De5jhMfwKq5aY MJnLPQ4VITltJGwW4Eu jG4gFoBqLJKiCLPfQ4A czTRmWBapJ254MMquLp E6AIAjkzRkI8PsBGHuf ZikEuW8l7X5Bm7LMMjk dbv4D3FeVgbdqJB+PC9 0PRVvGG07uYQawOGxn9 pwnLi4HvPxLMTaPXS1h EolQXcne7DtEQDuT01d eOMdb0G1VHSdz (more content not included)... Normal [facility] BMPon 05-11-2023 Creatinine [Mass/Vol] 0.8 mg/dL Normal 0.5-1.3 [facility] Comment on above: Performed By: #### 2 [id number] #### [facility] [address] [place] [address] Urea nitrogen/Creatinine [Mass ratio] 14 No Units Normal - [facility] Comment on above: Performed By: #### 2 [id number] #### [facility] [address] [place] [address] Anion gap [Moles/Vol] 15 mmol/L Normal 6-16 [facility] Comment on above: Performed By: #### 2 [id number] #### [facility] [address] [place] [address] Calcium [Mass/Vol] 9.9 mg/dL Normal 8.9-11.1 [facility] Comment on above: Performed By: #### 2 [id number] #### [facility] [address] [place] [address] Chloride [Moles/Vol] 98 mmol/L Low 101-111 [facility] Comment on above: Performed By: #### 2 [id number] #### [facility] [address] [place] [address] CO2 [Moles/Vol] 26 mmol/L Normal 21-31 [facility] Comment on above: Performed By: #### 2 [id number] #### [facility] [address] [place] [address] Glucose [Mass/Vol] 90 mg/dL Normal 55-199 [facility] Comment on above: Performed By: #### 2 [id number] #### [facility] [address] [place] [address] Potassium [Moles/Vol] 3.7 mmol/L Normal 3.5-5.3 [facility] Comment on above: Performed By: #### 2 [id number] #### [facility] [address] [place] [address] Sodium [Moles/Vol] 135 mmol/L Normal 135-145 [facility] Comment on above: Performed By: #### 2 [id number] #### [facility] [address] [place] [address] Urea nitrogen [Mass/Vol] 11 mg/dL Normal 5-21 [facility] Comment on above: Performed By: #### 2 [id number] #### [facility] [address] [place] [address] CBC w/ Auto Diffon 4 Basophils/100 WBC (Bld) 0.4 % Normal 0.0-2.0 [facility] Comment on above: Performed By: #### 2 [id number] #### [facility] [address] [place] [address] Basophils/Leukocytes Auto (Bld) [Pure # fraction] 0.0 E9/L Normal 0.0-0.2 [facility] Comment on above: Performed By: #### 2 [id number] #### [facility] [address] [place] [address] Eosinophils (Bld) [#/Vol] 0.0 E9/L Normal 0.0-0.5 [facility] Comment on above: Performed By: #### 2 [id number] #### [facility] [address] [place] [address] Eosinophils/100 WBC (Bld) 0.2 % Normal 0.0-8.0 [facility] Comment on above: Performed By: #### 2 [id number] #### [facility] [address] [place] [id number] Erythrocyte distribution width (RBC) [Ratio] 13.0 % Normal 10.9-14.2 [facility] Comment on above: Performed By: #### 2 [id number] #### [facility] [address] [place] [id number] Hematocrit (Bld) [Volume fraction] 47.1 % High 34.0-46.0 [facility] [facility] Comment on above: Performed By: #### 2 [id number] #### [facility] [address] [place] [address] Hemoglobin (Bld) [Mass/Vol] 16.1 g/dL High 12.0-16.0 [facility] Comment on above: Performed By: #### 2 [id number] #### [facility] [address] [place] [address] Lymphocytes (Bld) [#/Vol] 1.9 E9/L Normal 1.0-4.0 [facility] Comment on above: Performed By: #### 2 [id number] #### [facility] [address] [place] [address] Lymphocytes/100 WBC (Bld) 16.6 % Normal 14.0-50.0 [facility] Comment on above: Performed By: #### 2 [id number] #### [facility] [address] [place] [address] MCH (RBC) [Entitic mass] 30.5 pg Normal 27.0-34.0 [facility] Comment on above: Performed By: #### 2 [id number] #### [facility] [address] [place] [address] MCHC (RBC) [Mass/Vol] 34.2 g/dL Normal 31.4-36.0 [facility] Comment on above: Performed By: #### 2 [id number] #### [facility] [address] [place] [address] MCV (RBC) [Entitic vol] 89.3 fL Normal 80.0-100.0 [facility] Comment on above: Performed By: #### 2 [id number] #### [facility] [address] [place] [address] Monocytes (Bld) [#/Vol] 0.7 E9/L Normal 0.2-1.0 [facility] Comment on above: Performed By: #### 2 [id number] #### [facility] [address] [place] [address] Neutrophils (Bld) [#/Vol] 8.6 E9/L High 2.0-7.5 [facility] Comment on above: Performed By: #### 2 [id number] #### [facility] [address] [place] [address] Neutrophils/100 WBC (Bld) 76.5 % High 36.0-75.0 [facility] Comment on above: Performed By: #### 2 [id number] #### [facility] [address] [place] [address] Platelet mean volume (Bld) [Entitic vol] 8.8 fL Normal 6.4-10.8 [facility] Comment on above: Performed By: #### 2 [id number] #### [facility] [address] [place] [address] Platelets (Bld) [#/Vol] 280.0 E9/L Normal 150.0-500.0 [facility] Comment on above: Performed By: #### 2 [id number] #### [facility] [address] [place] [address] RBC (Bld) [#/Vol] 5.3 E12/L Normal 4.3-5.9 [facility] Comment on above: Performed By: #### 2 [id number] #### [facility] [address] [place] [address] WBC corrected for nucl RBC Auto (Bld) [#/Vol] 11.2 E9/L High 4.0-11.0 [facility] Comment on above: Performed By: #### 2 [id number] #### [facility] [address] [place] [address] CHEMISTRYOrdered By: SYSTEM SYSTEM on 05-11-2024 Albumin [Mass/Vol] 4.7 g/dL Normal 3.3 - 5.0 gm/dL [facility] Chem Albumin/Globulin [Mass ratio] 1.7 {ratio} Normal 1.1 - 2.2 [facility] Chem ALP [Catalytic activity/Vol] 64 [iU]/d Normal 21 - 98 Int._Unit/L [facility] Chem ALT No additional P-5'-P [Catalytic activity/Vol] 21 [iU]/d Normal 6 - 46 Int._Unit/L [facility] Chem Anion gap [Moles/Vol] 15 mmol/L Normal 6 - 16 mEq/L R emisol Chem AST [Catalytic activity/Vol] 15 [iU]/d Normal 5 - 43 Int._Unit/L [facility] Chem Bilirubin [Mass/Vol] 1.0 mg/dL Normal 0.0 - 1 .1 mg/dL [facility] Chem Bilirubin.direct [Mass/Vol] 0.1 mg/dL Normal 0.0 - 0.4 mg/dL Rem[facility] Chem Bilirubin.indirect [Mass or moles/Vol] 0.9 mg/dL Normal 0.1 - 0.9 mg/dL [facility] Calcium [Mass/Vol] 9.9 mg/dL Normal 8.9 - 11. 1 mg/dL [facility] Chloride [Moles/Vol] 98 mmol/L Low 101 - 1 11 mmol/L [facility] CO2 [Moles/Vol] 26 mmol/L Normal 21 - 31 mmol/L [facility] Creatinine [Mass/Vol] 0.8 mg/dL Normal 0.5 - 1.3 mg/dL [facility] eGFR 100 mL/min/1.73 m2 Normal >=59mL/mi n/1 .73 m2 [facility] Globulin (S) [Mass/Vol] 2.7 g/dL Normal 1.4 - 4.0 gm/dL [facility] Glucose [Mass/Vol] 90 mg/dL Normal 55 - 199 mg/dL [facility] Lipase [Catalytic activity/Vol] 11 U/L Low 13 - 58 unit/L [facility] Potassium [Moles/Vol] 3.7 mmol/L Normal 3.5 - 5.3 mmol/L [facility] Chem Protein [Mass/Vol] 7.4 g/dL Normal 6.0 - 7.8 gm/dL [facility] Sodium [Moles/Vol] 135 mmol/L Normal 135 - 145 mmol/L [facility] Urea nitrogen [Mass/Vol] 11 mg/dL Normal 5 - 21 mg/dL [facility] Chem Urea nitrogen/Creatinine [Mass ratio] 14 mg/mg Normal 10 - 20 Rem[facility] Chem Consent for Treatmenton 04-23 Consent for Treatment [id number] Normal [facility] Discharge Instructionson Discharge Instructions [id number] Normal [facility] ED Clinical Summaryon 2023 ED Clinical Summary [place] [id number] ED Clinical Summary Person Information Name: LUIS MIGUEL TEMPLE [facility] Age: 34 Years : 1990 Sex: Female Language: Latvian PCP: ANIKA VILLASENOR CNP Marital Status: Phone: [phone] MRN: Visit Id: Visit Reason: Nausea; Medical problem - minor; STOMACH PAIN WITH VOMITING AND DIARRAHA Speciality: Acuity: 3 Enc Type: Emergency Med Service: Emergency Arrival: 05/11/2024 15:03:50 Discharge: 05/11/2024 17:51:09 LOS: 000 02:48 Checkin: 05/11/2024 15:03:50 Checkout: 05/11/2024 17:51:09 Dispo Type: Home (Routine DC) EVENTS: Event Name Event Status Request Date/Time Start Date/Time Complete Date/Time Arrive Complete 05/11/2024 15:03:50 05/11/2024 15:03:50 05/11/2024 15:03:50 Document Home Meds Request 05/11/2024 15:03:50 Triage Complete 05/11/2024 15:03:50 05/11/2024 15:25:46 05/11/2024 15:25:46 Bed Assign Complete 05/11/2024 15:15:39 05/11/2024 15:15:39 05/11/2024 15:15:39 Dr Exam Complete 05/11/2024 15:15:39 05/11/2024 15:19:03 05/11/2024 15:19:03 RN Exam Complete 05/11/2024 15:15:39 05/11/2024 17:50:27 05/11/2024 17:50:27 Registration Complete 05/11/2024 15:19:03 05/11/2024 15:45:37 05/11/2024 15:45:37 Meds Admin Complete 05/11/2024 15:35:19 05/11/2024 15:49:17 Pending Labs Complete 05/11/2024 15:35:19 05/11/2024 16:39:27 Lab Complete 05/11/2024 15:35:19 05/11/2024 16:39:27 Reg Complete Request 05/11/2024 15:45:37 Reg Bed Request Complete 05/11/2024 15:45:37 05/11/2024 15:45:37 05/11/2024 15:45:37 Pending Labs Complete 05/11/2024 15:46:56 05/11/2024 15:46:56 05/11/2024 16:39:27 Lab Complete 05/11/2024 15:46:56 05/11/2024 15:46:56 05/11/2024 16:39:27 Pending Labs Complete 05/11/2024 15:47:25 05/11/2024 15:47:25 05/11/2024 15:47:25 Pending Labs Inlab 05/11/2024 16:03:10 05/11/2024 16:03:10 Lab Inlab 05/11/2024 16:03:10 05/11/2024 16:03:10 Dr Exam Complete 05/11/2024 17:36:22 05/11/2024 17:36:22 05/11/2024 17:36:22 Registration Request 05/11/2024 17:36:22 Discharge Complete 05/11/2024 17:38:07 05/11/2024 17:51:16 05/11/2024 17:51:16 Transfer Complete 05/11/2024 17:51:16 05/11/2024 17:51:16 05/11/2024 17:51:16 ADDRESS: [address] [facility] [id number] PHYS DOC NOTES: MEDICAL INFORMATION: Prescriptions Given: New Medications [facility]/pharmacy #[id number], [address], [place] [id number], [phone] omeprazole (omeprazole 40 mg Cap-DR) 1 Capsules By Mouth every day for 14 Days. Refills: 0. Medications to Continue Taking That Have Changed [facility]/pharmacy #[id number], [address], [place] [id number], [phone] START: ondansetron (Zofran ODT 4 mg Tab-Dis) 1 Tablets By Mouth 3 times a day. Refills: 0. Other Medications START: ondansetron (Zofran ODT 4 mg Tab-Dis) 1 Tablets By Mouth 3 times a day. Refills: 0. Medications to Continue with No Changes Other Medications albuterol (Albuterol (Eqv-ProAir HFA) 90 mcg/inh inhalation aerosol) 2 Puffs Inhalation every 6 hours as needed Shortness of breath or wheezing. Refills: 0. amphetamine-dextroa mphetamine (amphetamine-dextro amphetamine 25 mg oral capsule, extended release) ethinyl estradiol-norethind darryl (Blisovi 24 FE oral tablet) homatropine-hydroco done (homatropine-hydroc odone 1.5 mg-5 mg/5 mL oral syrup) 5 Milliliter By Mouth every 6 hours as needed Cough. Refills: 0. ibuprofen (ibuprofen 600 mg Tab) 1 Tablets By Mouth every 6 hours. Refills: 0. lamotrigine (lamotrigine 200 mg Tab) multivitamin, ( Multivitamins) 1 Tablets By Mouth every day. PATIENT EDUCATION INFORMATION: Instructions: Gastritis, Adult; Nausea and Vomiting, Adult Follow up: With: Address: When: Eric Carmona [address] [place] [address], [address], [place] [address] [phone] Business (1) In 3 days 05/14/2024 DIAGNOSIS: Gastritis; Nausea & vomiting Normal [facility] Patient Education Noteon 05-11-2024 ED Patient Education Note Gastroenterology Nausea and Vomiting, Adult Nausea is the feeling that you have an upset stomach or that you are about to vomit. As nausea gets worse, it can lead to vomiting. Vomiting is when stomach contents forcefully come out of your mouth as a result of nausea. Vomiting can make you feel weak and cause you to become dehydrated. Dehydration can make you feel tired and thirsty, cause you to have a dry mouth, and decrease how often you urinate. Older adults and people with other diseases or a weak disease-fighting system (immune system) are at higher risk for dehydration. It is important to treat your nausea and vomiting as told by your health care provider. Follow these instructions at home: Watch your symptoms for any changes. Tell your health care provider about them. Eating and drinking ? Take an oral rehydration solution (ORS). This is a drink that is sold at pharmacies and retail stores. ? Drink clear fluids slowly and in small amounts as you are able. Clear fluids include water, ice chips, low-calorie sports drinks, and fruit juice that has water added (diluted fruit juice). ? Eat bland, vjwy-af-awbclf foods in small amounts as you are able. These foods include bananas, applesauce, rice, lean meats, toast, and crackers. ? Avoid fluids that contain a lot of sugar or caffeine, such as energy drinks, sports drinks, and soda. ? Avoid alcohol. ? Avoid spicy or fatty foods. General instructions ? Take ropw-xqv-ctozmog and prescription medicines only as told by your health care provider. ? Drink enough fluid to keep your urine pale yellow. ? Wash your hands often using soap and water for at least 20 seconds. If soap and water are not available, use hand church organist. ? Make sure that everyone in your household washes their hands well and often. ? Rest at home while you recover. ? Watch your condition for any changes. ? Take slow and deep breaths when you feel nauseous. ? Keep all follow-up visits. This is important. Contact a health care provider if: ? Your symptoms get worse. ? You have new symptoms. ? You have a fever. ? You cannot drink fluids without vomiting. ? Your nausea does not go away after 2 days. ? You feel light-headed or dizzy. ? You have a headache. ? You have muscle cramps. ? You have a rash. ? You have pain while urinating. Get help right away if: ? You have pain in your chest, neck, arm, or jaw. ? You feel extremely weak or you faint. ? You have persistent vomiting. ? You have vomit that is bright red or looks like black coffee grounds. ? You have bloody or black stools (feces) or stools that look like tar. ? You have a severe headache, a stiff neck, or both. ? You have severe pain, cramping, or bloating in your abdomen. ? You have difficulty breathing, or you are breathing very quickly. ? Your heart is beating very quickly. ? Your skin feels cold and clammy. ? You feel confused. ? You have signs of dehydration, such as: ? Dark urine, very little urine, or no urine. ? Cracked lips. ? Dry mouth. ? Sunken eyes. ? Sleepiness. ? Weakness. These symptoms may be an emergency. Get help right away. Call 911. ? Do not wait to see if the symptoms will go away. ? Do not drive yourself to the hospital. Summary ? Nausea is the feeling that you have an upset stomach or that you are about to vomit. As nausea gets worse, it can lead to vomiting. Vomiting can make you feel weak and cause you to become dehydrated. ? Follow instructions from your health care provider about eating and drinking to prevent dehydration. ? Take shok-glc-huomijh and prescription medicines only as told by your health care provider. ? Contact your health care provider if your symptoms get worse, or you have new symptoms. ? Keep all follow-up visits. This is important. This information is not intended to replace advice given to you by your health care provider. Make sure you discuss any questions you have with your health care provider. Document Revised: 05/15/2022 Document Reviewed: 05/15/2022 [employer] Patient Education ? 2022 [employer]. Infectious Disease Gastritis, Adult Gastritis is inflammation of the stomach. There are two kinds of gastritis: ? Acute gastritis. This kind develops suddenly. ? Chronic gastritis. This kind is much more common. It develops slowly and lasts for a long time. Gastritis happens when the lining of the stomach becomes weak or gets damaged. Without treatment, gastritis can lead to stomach bleeding and ulcers. What are the causes? This condition may be caused by: ? An infection. ? Drinking too much alcohol. ? Certain medicines. These include steroids, antibiotics, and some plha-elh-fanyjqb medicines, such as aspirin or ibuprofen. ? Having too much acid in the stomach. ? Having a disease of the stomach. Other causes may include: ? An allergic (more content not included)... Normal [facility] ED Patient Summaryon 024 ED Patient Summary [place] [id number] Patient Discharge Instructions Person Information Name: LUIS MIGUEL TEMPLE Age: 34 Years Arrival Date: 05/11/2024 15:03:50 Discharge Diagnosis: Gastritis; Nausea & vomiting Primary Care Physician: ANIKA VILLASENOR CNP Provider Information Primary Provider: Ernst Stein MD [employer] Dist[employer] Manager:Colin Nguyen PA-C The exam and treatment you received in the Emergency Department were for an urgent problem and are not intended as complete care. It is important that you follow up with a doctor, nurse practitioner, or physician?s addictions counselor assistant for ongoing care. If your symptoms become worse or you do not improve as expected and you are unable to reach your usual health care provider, you should return to the Emergency Department. We are available 24 hours a day. LUIS MIGUEL TMEPLE has been given the following list of patient education materials, prescriptions and follow-up instructions: Follow-up Instructions: With: Address: When: Eric Caballero, [address], [address] [phone] Business (1) In 3 days 05/14/2024 In the event that this physician does not participate in your insurance network, please consult with your insurance company to find a nearby participating provider. Patient Education Materials: Gastritis, Adult; Nausea and Vomiting, Adult A MESSAGE TO ALL PATIENTS REGARDING OPIOIDS PRESCRIPTION OPIOIDS: WHAT YOU NEED TO KNOW Prescription opioids can be used to help relieve wlwsvnvl-gz-sgyrcd pain and are often prescribed following a surgery or injury, or for certain health conditions. These medications can be an important part of the treatment but also come with serious risks. It is important to work with your healthcare provider to make sure you are getting the safest, most effective care. WHAT ARE THE RISKS AND SIDE EFFECTS OF OPIOID USE? Prescription opioids carry serious risks of addiction and overdose, especially with prolonged use. An opioid overdose, often marked by slowed breathing, can cause sudden . The use of prescription opioids can have a number of side effects as well, even when taken as directed: ? Tolerance?meaning you might need to take more of the medication for the same pain relief ? Physical dependence?meaning you have symptoms of withdrawal when a medication is stopped ? Increased sensitivity to pain ? Constipation ? Nausea, vomiting, and dry mouth ? Sleepiness and dizziness ? Confusion ? Depression ? Low levels of testosterone that can result in lower sex drive, energy, and strength ? Itching and sweating RISKS ARE GREATER WITH: ? History of drug misuse, substance use disorder, or overdose ? Mental health conditions (such as depression or anxiety) ? Sleep apnea ? Older age (65 years and older) ? Avoid alcohol while taking prescription opioids. Also, unless specifically advised by your health care provider, medications to avoid include: ? Benzodiazepines (such as Xanax or Valium) ? Muscle relaxants (such as Soma or Flexeril) ? Hypnotics (such as Ambien or Lunesta) ? Other prescription opioids KNOW YOUR OPTIONS Talk to your health care provider about ways to manage your pain that don?t involve prescription opioids. Some of these options may actually work better and have fewer risks and side effects. Options may include: ? Pain relievers such as acetaminophen, ibuprofen, and naproxen ? Some medication that are also used for depression or seizures ? Physical therapy and exercise ? Cognitive behavioral therapy, a psychological, goal-directed approach, in which patients learn how to modify physical, behavioral, and emotional triggers of pain and stress. IF YOU ARE PRESCRIBED OPIOIDS FOR PAIN: ? Never take opioids in greater amounts or more often than prescribed. ? Follow up with your primary health care provider. o Work together to create a plan on how to manage your pain. o Talk about ways to help manage your pain that don?t involve prescription opioids. o Talk about any and all concerns and side effects. ? Help prevent misuse and abuse o Never sell or share prescription opioids. o Never use another person?s prescription opioids. ? Store prescription opioids in a secure place and out of reach of others (this may include visitors, children, friends, and family). ? Safely dispose of unused prescription opioids: Find your community drug take-back program or your pharmacy mail-back program, or flush them down the toilet, following guidance from the Food and Drug Administration (www.fda.gov/Drugs/ ResourcesForYou). ? Visit www.cdc.gov/drugove rdose to learn about the risks of opioids abuse and overdose. ? If you believe you may be struggling with addiction, tell your health resident care associate and ask for guidance or call [facility] National [facility] (more content not included)... Normal [facility] HEMATOLOGYOrdered By: SYSTEM SYSTEM on 05-11-2024 Basophils/100 WBC (Bld) 0.4 % Normal 0.0 - 2.0 % Rem[facility] Heme Basophils/Leukocytes Auto (Bld) [Pure # fraction] 0.0 E9/L Normal 0.0 - 0.2 E9/L [facility] Eosinophils (Bld) [#/Vol] 0.0 E9/L Normal 0.0 - 0.5 E9/L [facility] Eosinophils/100 WBC (Bld) 0.2 % Normal 0.0 - 8.0 % [facility] Erythrocyte distribution width (RBC) [Ratio] 13.0 % Normal 10.9 - 14.2 % [facility] Hematocrit (Bld) [Volume fraction] 47.1 % High 34.0 - 46.0 % [facility] Hemoglobin (Bld) [Mass/Vol] 16.1 g/dL High 12.0 - 16.0 gm/dL [facility] Lymphocytes (Bld) [#/Vol] 1.9 E9/L Normal 1.0 - 4.0 E9/L [facility] Lymphocytes/100 WBC (Bld) 16.6 % Normal 14.0 - 50.0 % [facility] MCH (RBC) [Entitic mass] 30.5 pg Normal 27.0 - 34.0 pg [facility] MCHC (RBC) [Mass/Vol] 34.2 g/dL Normal 31.4 - 36.0 gm/dL [facility] MCV (RBC) [Entitic vol] 89.3 fL Normal 80.0 - 100.0 fL [facility] Monocytes (Bld) [#/Vol] 0.7 E9/L Normal 0.2 - 1.0 E9/L [facility] Monocytes/100 WBC (Bld) 6.3 % Normal 4.0 - 14.0 % [facility] Neutrophils (Bld) [#/Vol] 8.6 E9/L High 2.0 - 7.5 E9/L [facility] Neutrophils/100 WBC (Bld) 76.5 % High 36.0 - 75.0 % [facility] Platelet mean volume (Bld) [Entitic vol] 8.8 fL Normal 6.4 - 10.8 fL [facility] Platelets (Bld) [#/Vol] 280.0 E9/L Normal 150. 0 - 500.0 E9/L [facility] RBC (Bld) [#/Vol] 5.3 E12/L Normal 4.3 - 5.9 E12/L [facility] WBC corrected for nucl RBC Auto (Bld) [#/Vol] 11.2 E9/L High 4.0 - 11.0 E9/L [facility] Hep Func Panelon 05-11-2024 Albumin [Mass/Vol] 4.7 g/dL Normal 3.3-5.0 [facility] Comment on above: Performed By: #### 2 [id number] #### [facility] [address] [place] [address] Albumin/Globulin (S) [Mass conc ratio] 1.7 Normal 1.1-2.2 [facility] Comment on above: Performed By: #### 2 [id number] #### [facility] [address] [place] [address] ALP [Catalytic activity/Vol] 64 Int._Unit/L Normal 21-98 [facility] Comment on above: Performed By: #### 2 [id number] #### [facility] [address] [place] [address] ALT No additional P-5'-P [Catalytic activity/Vol] 21 Int._Unit/L Normal 6-46 [facility] Comment on above: Performed By: #### 2 [id number] #### [facility] [address] [place] [address] AST [Catalytic activity/Vol] 15 Int._Unit/L Normal 5-43 [facility] Comment on above: Performed By: #### 2 [id number] #### [facility] [address] [place] [address] Bilirubin [Mass/Vol] 1.0 mg/dL Normal 0.0-1.1 [facility] Comment on above: Performed By: #### 2 [id number] #### [facility] [address] [place] [address] Bilirubin.direct [Mass/Vol] 0.1 mg/dL Normal 0.0-0.4 [facility] Comment on above: Performed By: #### 2 [id number] #### [facility] [address] [place] [address] Bilirubin.indirect [Mass or moles/Vol] 0.9 mg/dL Normal 0.1-0.9 [facility] Comment on above: Performed By: #### 2 [id number] #### [facility] [address] [place] [address] Globulin (S) [Mass/Vol] 2.7 g/dL Normal 1.4-4.0 [facility] Comment on above: Performed By: #### 2 [id number] #### [facility] [address] [place] [address] Protein [Mass/Vol] 7.4 g/dL Normal 6.0-7.8 [facility] Comment on above: Performed By: #### 2 [id number] #### [facility] [address] [place] [address] Lipase Levelon 05-11-2024 Lipase [Catalytic activity/Vol] 11 U/L Low 13-58 [facility] Comment on above: Performed By: #### 2 [id number] #### [facility] [address] [place] [address] UA with Cult Rflxon 05-11-20 24 Bacteria Auto Ql (U) Trace Normal Trace [facility] Comment on above: Performed By: #### 4 [id number] #### [facility] [address] [place] [address] Bilirubin Ql (U) Negative Normal Negative [facility] Comment on above: Performed By: #### 4 [id number] #### [facility] [address] [place] [address] Clarity (U) Clear Normal Clear [facility] Comment on above: Performed By: #### 4 [id number] #### [facility] [address] [place] [address] Color (U) Light-Yellow Normal Yellow [facility] Comment on above: Result Comment: Micr oscopic readings are only performed on those samples that meet specific criteria set forth by [facility]. Performed By: #### 4 [id number] #### [facility] [address] [place] [address] Epithelial cells.squamous Auto (Urine sed) [#/Area] >10 Invalid Interpretation Code [facility] Comment on above: Performed By: #### 4 [id number] #### [facility] [address] [place] [address] Glucose Ql (U) Negative Normal Negative [facility] Comment on above: Performed By: #### 4 [id number] #### [facility] [address] [place] [address] Hemoglobin Auto test strip (U) [Mass/Vol] Negative Normal Negative [facility] Comment on above: Performed By: #### 4 [id number] #### [facility] [address] [place] [address] Ketones Auto test strip Ql (U) 2+ mg/dL Abnormal Negative [facility] Comment on above: Performed By: #### 4 [id number] #### [facility] [address] [place] [address] Leukocyte esterase Auto test strip Ql (U) 250 Darcy/uL Abnormal Negative [facility] Comment on above: Performed By: #### 4 [id number] #### [facility] [address] [place] [address] Mucus Auto Ql (U) Negative Normal Negative [facility] Comment on above: Performed By: #### 4 [id number] #### [facility] [address] [place] [address] Nitrite Auto test strip Ql (U) Negative Normal Negative [facility] Comment on above: Performed By: #### 4 [id number] #### [facility] [address] [place] [address] pH (U) 7.0 [pH] Invalid Interpretation Code 5.0-9.0 [facility] Comment on above: Performed By: #### 4 [id number] #### [facility] [address] [place] [address] Protein Ql (U) Negative Normal Negative [facility] Comment on above: Performed By: #### 4 [id number] #### [facility] [address] [place] [address] RBC Ql (U) 4-20 Abnormal 0-3 [facility] Comment on above: Performed By: #### 4 [id number] #### [facility] [address] [place] [address] Specific gravity (U) [Rel density] 1.007 Invalid Interpretation Code 1.005-1.030 [facility] Comment on above: Performed By: #### 4 [id number] #### [facility] [address] [place] [address] Urobilinogen (U) [Mass/Vol] Negative Normal Negative [facility] Comment on above: Performed By: #### 4 [id number] #### [facility] [address] [place] [address] WBC Auto (Urine sed) [#/Area] 6-15 Abnormal 0-5 [facility] Comment on above: Performed By: #### 4 [id number] #### [facility] [address] [place] [address] Type of Urine collection method Clean Catch Normal [facility] Comment on above: Performed By: #### 4 [id number] #### [facility] [address] [place] [address] URINALYSISOrdered By: SYSTEM SYSTEM on 05-11-2024 Bacteria Auto Ql (U) Trace /HPF Normal Trace/HPF [facility] UA Auto SS Bilirubin Ql (U) Negative Normal Negativemg/ d L [facility] UA Auto SS Clarity (U) Clear (05/11/24 3:52 PM) Normal Clear [facility] UA Auto SS Color (U) Light-Yellow 1 (05/11/24 3:52 PM) Normal Yellow [facility] UA Auto SS Comment on above: Interpretive Data: M icroscopic readings are only performed on those samples that meet specific criteria set forth by [facility]. Epithelial cells.squamous Auto (Urine sed) [#/Area] >10 graded/HPF Invalid Interpretation Code FT UA Auto SS Glucose Ql (U) Negative Normal Negativemg/d L [facility]A Auto SS Hemoglobin Auto test strip (U) [Mass/Vol] Negative Normal Negativemg/d L [facility]A Auto SS Ketones Auto test strip Ql (U) 2+ mg/dL Invalid Interpretation Code Negativemg/d L [facility] UA Auto SS Leukocyte esterase Auto test strip Ql (U) 250 Darcy/uL Darcy/uL Invalid Interpretation Code NegativeLeu/ uL [facility] UA Auto SS Mucus Auto Ql (U) Negative Normal Negativegr ad ed/LPF [facility] UA Auto SS Nitrite Auto test strip Ql (U) Negative Normal Negativemg/d L [facility] UA Auto SS pH (U) 7.0 *NA* (05/11/24 3:52 PM) Invalid Interpretation Code 5.0 - 9.0 [facility] UA Auto SS Protein Ql (U) Negative Normal Negativemg/d L [facility] UA Auto SS RBC Ql (U) 4-20 graded/HPF Invalid Interpretation Code 0-3graded/HP F [facility] UA Auto SS Specific gravity (U) [Rel density] 1.007 *NA* (05/11/24 3:52 PM) Invalid Interpretation Code 1.005 - 1.030 [facility] UA Auto SS Urobilinogen (U) [Mass/Vol] Negative Normal Negativemg/d L [facility] UA Auto SS WBC Auto (Urine sed) [#/Area] 6-15 graded/HPF Invalid Interpretation Code 0-5graded/HP F [facility] UA Auto SS URINALYSISOrdered By: Colin Nguyen on 05-11-2024 UA Spec Desc Clean Catch (05/11/24 3:52 PM) Normal [facility] UA Auto SS eGFRon 05-11-2024 eGFR 100 mL/min/1.73 m2 Normal >=59 [facility] Comment on above: Order Comment: Order added by Discern Expert. Performed By: #### 1 [id number] #### [facility] [address] [place] [address] CBC AND AUTO DIFFon 03-12-20 ABSOLUTE BASOPHIL 0.0 X10E9/L Normal 0.0-0.2 [facility] Comment on above: Performed By: #### C WIN CMP, 68218-8 #### [facility] ([id number]) [address] [place] [address] 28921 ABSOLUTE NEUTROPHIL 7.2 X10E9/L High 1.5-6.6 [facility] Comment on above: Performed By: #### C WIN CMP, 05685-5 #### [facility] ([id number]) [address] [place] [address] 65103 Basophils/100 WBC (Bld) 0.4 % Normal [facility] Comment on above: Performed By: #### C WIN [facility], 82784-4 #### [facility] ([id number]) [address] [place] [address] 97468 Eosinophils (Bld) [#/Vol] 0.0 10*3/uL Normal 0.0-0.4 [facility] Comment on above: Performed By: #### Darryl WALDEN CMP, #### [facility] ([id number]) [address] [place] [address] 32164 Eosinophils/100 WBC (Bld) 0.0 % Normal [facility] Comment on above: Performed By: #### Darryl WALDEN CMP, 26958-6 #### [facility] ([id number]) [address] [place] [address] 76541 Erythrocyte distribution width (RBC) [Ratio] 13.0 % Normal 11.5-15.0 [facility] Comment on above: Performed By: #### Darryl WALDEN [facility], 82226-6 #### [facility] ([id number]) [address] [place] [address] 39291 Hematocrit (Bld) [Volume fraction] 42.3 % Normal 35-47 [facility] Comment on above: Performed By: #### Darryl WALDEN [facility], #### [facility] ([id number]) [address] [place] [address] 98651 Hemoglobin (Bld) [Mass/Vol] 14.8 g/dL Normal 11.7-15.5 [facility] Comment on above: Performed By: #### Darryl WALDEN CMP, #### [facility] ([id number]) [address] [place] [address] 74880 Lymphocytes (Bld) [#/Vol] 1.1 10*3/uL Normal 1.0-3.5 [facility] Comment on above: Performed By: #### C WIN CMP, #### [facility] ([id number]) [address] [place] [address] 56700 Lymphocytes/100 WBC (Bld) 13.0 % Normal [facility] Comment on above: Performed By: #### C WIN CMP, #### [facility] ([id number]) [address] [place] [address] 10665 MCH (RBC) [Entitic mass] 30.5 pg Normal 27-34 [facility] Comment on above: Performed By: #### C WIN CMP, #### [facility] ([id number]) [address] [place] [address] 60133 MCHC (RBC) [Mass/Vol] 34.8 g/dL Normal 32-36 [facility] Comment on above: Performed By: #### Darryl WALDEN [facility], #### [facility] ([id number]) [address] [place] [address] 22604 MCV (RBC) [Entitic vol] 88 fL Normal 80-100 [facility] Comment on above: Performed By: #### Darryl WALDEN, CMP, #### [facility] ([id number]) [address] [place] [address] 42539 Monocytes (Bld) [#/Vol] 0.4 10*3/uL Normal 0-0.9 [facility] Comment on above: Performed By: #### C WIN, CMP, #### [facility] ([id number]) [address] [place] [address] 86603 Monocytes/100 WBC (Bld) 4.6 % Normal P [facility] Comment on above: Performed By: #### Darryl WALDEN, CMP, #### [facility] ([id number]) [address] [place] [address] 46146 Neutrophils/100 WBC (Bld) 82.0 % Normal [facility] Comment on above: Performed By: #### Darryl WALDEN, CMP, 65055-7 #### [facility] ([id number]) [address] [place] [address] 84131 Platelet mean volume (Bld) [Entitic vol] 8.1 fL Normal 7-12 [facility] Comment on above: Performed By: #### Darryl WALDEN, CMP, 59932-6 #### [facility] ([id number]) [address] [place] [address] 41957 Platelets (Bld) [#/Vol] 289 10*3/uL Normal 150-450 [facility] Comment on above: Performed By: #### Darryl WALDEN, CMP, 11577-9 #### [facility] ([id number]) [address] [place] [address] 09870 RBC COUNT 4.83 X10E12/L Normal 3.80-5.20 [facility] Comment on above: Performed By: #### Darryl WALDEN, CMP, 59780-4 #### [facility] ([id number]) [address] [place] [address] 64664 WBC (Bld) [#/Vol] 8.8 10*3/uL Normal 4.0-11.0 [facility] Comment on above: Performed By: #### Darryl BCA, CMP, 84302-8 #### [facility] ([id number]) [address] [place] [address] 04894 COMPREHENSIVE METABOLIC PANE Lito 03-12-2024 Albumin [Mass/Vol] 4.5 g/dL Normal 3.2-5.3 [facility] Comment on above: Performed By: #### Darryl WALDEN, CMP, 26815-7 #### [facility] ([id number]) [address] [place] [address] ALP [Catalytic activity/Vol] 66 U/L Normal 39-130 [facility] Comment on above: Performed By: #### C ALBIN WALDEN, 22556-5 #### [facility] ([id number]) [address] [place] [address] 93932 ALT [Catalytic activity/Vol] 18 U/L Normal 0-31 [facility] Comment on above: Performed By: #### C WIN, CMP, #### [facility] ([id number]) [address] [place] [address] 93921 Anion gap [Moles/Vol] 10 mmol/L Normal 5-15 [facility] Comment on above: Performed By: #### C WIN, CMP, 61119-3 #### [facility] ([id number]) [address] [place] [address] 90786 AST [Catalytic activity/Vol] 17 U/L Normal 0-41 [facility] Comment on above: Performed By: #### C WIN, CMP, 15138-8 #### [facility] ([id number]) [address] [place] [address] 96871 Bilirubin [Mass/Vol] 0.7 mg/dL Normal 0.3-1.2 [facility] Comment on above: Performed By: #### C BCA, CMP, 57014-5 #### [facility] ([id number]) [address] [place] [address] 45667 Calcium [Mass/Vol] 8.9 mg/dL Normal 8.5-10.5 [facility] Comment on above: Performed By: #### C BCA, CMP, 03315-8 #### [facility] ([id number]) [address] [place] [address] 30935 Chloride [Moles/Vol] 103 mmol/L Normal 98-109 [facility] Comment on above: Performed By: #### C BCA, CMP, 13412-2 #### [facility] ([id number]) [address] [place] [address] 79904 CO2 [Moles/Vol] 25 mmol/L Normal 22-32 [facility] Comment on above: Performed By: #### C ALBIN WALDEN, 65900-0 #### [facility] ([id number]) [address] [place] [address] 27630 Creatinine [Mass/Vol] 0.95 mg/dL Normal 0.40-1.00 [facility] Comment on above: Result Comment: METH OD TRACEABLE TO IDMS STANDARD Performed By: #### C ALBIN WALDEN, 52924-0 #### [facility] ([id number]) [address] [place] [address] 17693 GFR/1.73 sq M.predicted among non-blacks MDRD (S/P/Bld) [Vol rate/Area] 82 mL/min/{1.73_m2} Normal >59 [facility] Comment on above: Result Comment: Reported eGFR is based on the CKD-EPI 2020 equation that does not use a race coefficient. Performed By: #### C ALBIN WALDEN, 56596-8 #### [facility] ([id number]) [address] [place] [address] 56982 Glucose [Mass/Vol] 112 mg/dL High 65-99 [facility] Comment on above: Performed By: #### C ALBIN WALDEN, 34981-6 #### [facility] ([id number]) [address] [place] [address] 95766 Potassium [Moles/Vol] 3.6 mmol/L Normal 3.5-5.0 [facility] Comment on above: Performed By: #### C ALBIN WALDEN, 88292-2 #### [facility] ([id number]) [address] [place] [address] 94374 Protein [Mass/Vol] 7.5 g/dL Normal 6.0-8.0 [facility] Comment on above: Performed By: #### C ALBIN WALDEN, 52793-5 #### [facility] ([id number]) [address] [place] [address] 19227 Sodium [Moles/Vol] 138 mmol/L Normal 134-146 [facility] Comment on above: Performed By: #### C ALBIN WALDEN, 65418-6 #### [facility] ([id number]) [address] [place] [address] 92888 Urea nitrogen [Mass/Vol] 12 mg/dL Normal 5-23 [facility] Comment on above: Performed By: #### C ALBIN WALDEN, 46915-2 #### [facility] ([id number]) [address] [place] [address] 11679 HCG ( test) Ql (U)o n 03-12-2024 Beta HCG ( test) Ql (U) Negative Normal NEG [facility] Comment on above: Performed By: #### 2 106-3 #### [facility] ([id number]) [address] [place] [address] 98670 MAGNESIUMon 03-12-2024 Magnesium [Mass/Vol] 2.1 mg/dL Normal 1.8-2.6 [facility] Comment on above: Performed By: #### C ALBIN WALDEN, 66903-3 #### [facility] ([id number]) [address] [place] [address] 91662 URN MACROSCOPIC NURon 2023 BILIRUBIN TASNEEM Small Abnormal NEG [facility] Comment on above: Performed By: #### N UM #### [facility] ([id number]) [address] [place] [address] 82066 BLOOD/HGB TASNEEM Large Abnormal NEG [facility] Comment on above: Performed By: #### N UM #### [facility] ([id number]) [address] [place] [address] 65138 GLUCOSE TASNEEM Negative Normal NEG [facility] Comment on above: Performed By: #### N UM #### [facility] ([id number]) [address] [place] [address] 66276 KETONES TASNEEM 40 mg/dL Abnormal NEG [facility] Comment on above: Performed By: #### N UM #### [facility] ([id number]) [address] [place] [address] 12366 LEUKOCYTE ESTERASE TASNEEM Trace Abnormal NEG [facility] Comment on above: Performed By: #### N UM #### [facility] ([id number]) [address] [place] [address] 16335 NITRITE TASNEEM Negative Normal NEG [facility] Comment on above: Performed By: #### N UM #### [facility] ([id number]) [address] [place] [address] 25711 PH TASNEEM 6.0 Normal 5.0-8.5 [facility] Comment on above: Performed By: #### N UM #### [facility] ([id number]) [address] [place] [address] 33352 PROTEIN TASNEEM 30 mg/dL Abnormal NEG [facility] Comment on above: Performed By: #### N UM #### [facility] ([id number]) [address] [place] [address] [place] [address] SPECIFIC GRAVITY TASNEEM >=1.030 Normal 1.003-1.035 [facility] Comment on above: Performed By: #### N UM #### [facility] ([id number]) [address] [place] [address] 70667 UROBILINOGEN TASNEEM 0.2 eu/dL Normal <1.1 [facility] Comment on above: Performed By: #### N UM #### [facility] ([id number]) [address] [facility] [place] [address] CT abdomen pelvis w conon CT abdomen pelvis w con [facility] [address] [place] [address] [place] [address] CT Scan Report Signed Patient: Luis Miguel Temple MR#: [id number] : 1990 Acct:[id number] Age/Sex: 33 / F ADM Date: 11/29/23 Loc: ER Room: Type: [facility] ER Attending Dr: Copies to: Marisol Alexis DO Ordering Provider: Marisol Alexis DO Date of Service: 11/29/23 CT/CT abdomen pelvis w con: f CT ABDOMEN AND PELVIS WITH INTRAVENOUS CONTRAST: CLINICAL HISTORY: Nausea and vomiting for 2 months. Syncope. COMPARISON: None TECHNIQUE: Spiral images were obtained through the abdomen and pelvis following the administration of intravenous contrast. This CT exam was performed using one or more following dose reduction techniques: Automated exposure control, adjustment of the mA and/or kV according to patient size, or use of iterative reconstruction technique. FINDINGS: Lung Bases: [Minimal lung scarring. Evidence of old granulomatous disease.] Organs:Focal area of steatosis along the falciform ligament. Portal vein gallbladder spleen pancreas adrenal glands aorta and kidneys all appear unremarkable.[ GI: Stomach is grossly unremarkable. Small bowel appears nondilated. Questionable wall thickening and mild inflammatory changes along the ascending colon. No colonic obstruction. Appendix is normal.[ Pelvis:[Urinary bladder is grossly unremarkable. No adnexal mass. An IUD is in place with one of its arms extending into the serosal surface.] Peritoneum/Retroper itoneum:No free air, free fluid or lymphadenopathy.[ Abd wall/Bones:Abdomina l wall demonstrates no acute findings. Osseous structures demonstrate no acute bony process.[ CT/CT abdomen pelvis w con IMPRESSION: 1. Questionable wall thickening and mild inflammatory changes along the ascending colon possibly representing developing colitis. No colonic obstruction is seen. 2. IUD is in place with one of the arms extending to the serosal surface of the uterus. Penetration into the myometrium cannot BE excluded and can be further evaluated by ultrasound. Impression dictated by: Tao Huerta Jr., D.O.11/30/2023 8:49 AM Dictation Location: [place] [address] Transcribed By: [facility] 11/30/23 0849 Dictated By: Tao Huerta Jr, 11/30/23 0845 Signed By: 11/30/23 0849 Normal [facility] US transvaginalon 11-30-2023 US transvaginal [facility] [place] [address] Ultrasound Report Signed Patient: Luis Miguel Temple MR#: [id number] : 1990 Acct:[id number] Age/Sex: 33 / F ADM Date: 11/29/23 Loc: ER Room: Type: [facility] ER Attending Dr: Ordering Provider: Marisol Alexis DO Date of Service: 11/29/23 US/US pelvic complete: iud placement ([id number]) US/US transvaginal: . Copies to: Marisol Alexis DO EXAMINATION TYPE: US pelvic complete, US transvaginal Grayscale, color scale Doppler, vascular duplex analysis of the bilateral ovaries DATE OF EXAM ORDERED: 11/29/2023 10:31 PM HISTORY: Nausea, vomiting, recent IUD placement COMPARISON: NONE TECHNIQUE: Realtime Transvaginal and Transabdominal imaging was performed. Transvaginal imaging was utilized to better evaluate the ovaries and the endometrial stripe. Grayscale, color scale Doppler, vascular duplex analysis of the bilateral ovaries was performed to assess blood flow. FINDINGS: The uterus measures 10.2 x 4.8 x 6.1. The uterus is normal in echogenicity. Endometrium: Normal thickness and appearance. The endometrium measures 4 mm in thickness. There is an intrauterine device which appears to be either subendometrial or myometrial in positioning. Ovaries: The visualized ovaries are within normal limits for songraphic evaluation. Right Ovary measurements: 3.4 x 1.7 x 2.3 cm Left Ovary measurements: 2.0 x 1.7 x 1.6 cm No abnormal adnexal mass is seen. No free fluid in the pelvic cul-de-sac. Vascular duplex analysis of the bilateral ovaries demonstrates normal blood flow without evidence of ovarian ischemia. US/US pelvic complete IMPRESSION: No evidence of ovarian ischemia. There is an intrauterine device which appears to be either subendometrial or myometrial in positioning. Impression dictated by: Jone Joe M.D.11/30/2023 10:05 AM Dictation Location: [place] [address] Tech: Esmer Mims Transcribed By: DEBORAH 11/30/23 1005 Dictated By: Jone Joe II, MD 11/30/23 0956 Signed By: 11/30/23 1005 Normal [facility] Alanine aminotransferase [En zymatic activity/volume] in Serum or PlasmaOrdered By: Marisol Alexis on 11-29-2023 ALT [Catalytic activity/Vol] 23 U/L 7-52 [facility] Albumin [Mass/volume] in Ser um or Plasma by Bromocresol green (BCG) dye binding methoOrdered By: Marisol Alexis on 11-29-2023 Albumin BCG dye [Mass/Vol] 4.4 g/dL 3.5-5.7 [facility] Alkaline phosphatase [Enzyma tic activity/volume] in Serum or PlasmaOrdered By: Marisol Alexis on 11-29-2023 ALP [Catalytic activity/Vol] 62 U/L 34-104 [facility] Aspartate aminotransferase [ Enzymatic activity/volume] in Serum or PlasmaOrdered By: Marisol Alexis on 11-29-2023 AST [Catalytic activity/Vol] 16 U/L 13-39 [facility] Automated basophil %Ordered By: Marisol Alexis on 11-29-2023 Basophils/100 WBC (Bld) 0.5 % Normal . [facility] Comment on above: Performed By: #### C BC #### [facility] [address] [place] [address] Automated basophil countOrde red By: Marisol Alexis on 11-29-2023 Basophils (Bld) [#/Vol] 0.1 10*3/uL Normal 0.0-0.2 [facility] Comment on above: Result Comment: PERF ORMED BY: [place] [address] PATHOLOGIST FLUX TUBE ATTENDANT RODNEY BRITTON M.D. Performed By: #### C BC #### [facility] [address] [place] [address] Automated blood monocyte cou ntOrdered By: Marisol Alexis on 11-29-2023 Monocytes (Bld) [#/Vol] 0.3 10*3/uL Normal 0.0-0.8 [facility] Comment on above: Performed By: #### C BC #### [facility] [address] Automated eosinophil %Ordere d By: Marisol Alexis on 11-29-2023 Eosinophils/100 WBC (Bld) 0.1 % Normal . [facility] Comment on above: Performed By: #### C BC #### [facility] [address] Automated eosinophil countOr dered By: Marisol Alexis on 11-29-2023 Eosinophils (Bld) [#/Vol] 0.0 10*3/uL Normal 0.0-0.45 [facility] Comment on above: Performed By: #### C BC #### [address] Automated erythrocytes count in urine sediment (number/area)Ordered By: Marisol Alexis on 11-29-2023 RBC Auto (Urine sed) [#/Area] 5-9 [HPF] 0-4 [facility] Automated leukocytes count i n urine sediment (number/area)Ordered By: Marisol Alexis on 11-29-2023 WBC Auto (Urine sed) [#/Area] 10-19 [HPF] 0-4 [facility] Automated monocyte %Ordered By: Marisol Alexis on 11-29-2023 Monocytes/100 WBC (Bld) 1.8 % Normal . [facility] Comment on above: Performed By: #### C BC #### [facility] [address] Automated neutrophil %Ordere d By: Marisol Alexis on 11-29-2023 Neutrophils/100 WBC (Bld) 92.6 % Normal . [facility] Comment on above: Performed By: #### C BC #### [address] Automated urine color determ inationOrdered By: Marisol Alexis on 11-29-2023 Color (U) Yellow Normal Yellow [facility] Comment on above: Order Comment: Name Collection Type:: Clean-Voided Midstream Performed By: #### C UU, UHCG, ADDONUAPLUS #### [facility] [address] [place] [address] Bacterial blood cultureOrder ed By: Marisol Alexis on 11-29-2023 Bacteria identified Cx Nom (Bld) NO GROWTH 5 DAYS [facility] Bacteria identified Cx Nom (Bld) NO GROWTH 5 DAYS [facility] Bilirubin Test strip Ql (U)O rdered By: Marisol Alexis on 11-29-2023 Bilirubin Ql (U) Negative Negative [facility] Bilirubin.total [Mass/volume ] in Serum or PlasmaOrdered By: Marisol Alexis on 11-29-2023 Bilirubin [Mass/Vol] 0.3 mg/dL 0.3-1.0 [facility] Blood Cultureon 11-29-2023 Bacteria identified Cx Nom (Bld) NO GROWTH 5 DAYS PERFORMED BY: [place] [address] PATHOLOGIST FLUX TUBE ATTENDANT RODNEY BRITTON M.D. Normal [facility] Comment on above: Performed By: #### L IPASE, CUBLD, LACTIC #### [facility] [address] [place] [address] Bacteria identified Cx Nom (Bld) NO GROWTH 5 DAYS PERFORMED BY: [place] [address] PATHOLOGIST FLUX TUBE ATTENDANT RODNEY BRITTON M.D. Normal [facility] Comment on above: Performed By: #### L IPASE, CUBLD, LACTIC #### [facility] [address] [place] [address] [place] Calcium [Mass/volume] in Ser um or PlasmaOrdered By: Marisol Alexis on 11-29-2023 Calcium [Mass/Vol] 9.1 mg/dL 8.6-10.3 [facility] [facility] [place] Carbon dioxide, total [Moles /volume] in Serum or PlasmaOrdered By: Marisol Alexis on 11-29-2023 CO2 [Moles/Vol] 24.7 mmol/L 21.0-31.0 [facility] Chloride [Moles/volume] in S carmen or PlasmaOrdered By: Marisol Alexis on 11-29-2023 Chloride [Moles/Vol] 107 mmol/L 98-107 [facility] Complete Blood Count Auto Di ffon 11-29-2023 Mean Corpuscular HGB Conc 33.5 g/dL Normal 32.0-35.0 [facility] Comment on above: Performed By: #### C BC #### [facility] [address] [place] [address] [place] Monocytes/100 WBC (Bld) 20.83 % High 0.00-20.00 [facility] Comment on above: Result Comment: For adults in ED, MDW > 20.0 may be associated with a higher risk of sepsis during the first 12 hrs of hospital admission Performed By: #### C BC #### [facility] [address] NRBC% 0.0 /100{WBC} Normal 0-0.5 [facility] Comment on above: Performed By: #### C BC #### [facility] [address] [place] [id number] [place] Creatinine [Mass/volume] in Serum or PlasmaOrdered By: Marisol Alexis on 11-29-2023 Creatinine [Mass/Vol] 0.73 mg/dL 0.60-1.20 [facility] Dipstick and Microscopicon 0 11-29-2023 Appearance (U) Clear Normal Clear The [facility] Comment on above: Order Comment: Name Collection Type:: Clean-Voided Midstream Performed By: #### C UU, UHCG, ADDONUAPLUS #### [facility] [address] [place] [id number] [place] Bacteria,Urine 2+ High None Seen [facility] Comment on above: Order Comment: Name Collection Type:: Clean-Voided Midstream Performed By: #### C UU, UHCG, ADDONUAPLUS #### [facility] [address] [place] [id number] [place] Bilirubin,Urine Negative Normal Negative The [facility] Comment on above: Order Comment: Name Collection Type:: Clean-Voided Midstream Performed By: #### C UU, UHCG, ADDONUAPLUS #### [address] Glucose Ql (U) Normal Normal Normal The [facility] Comment on above: Order Comment: Name Collection Type:: Clean-Voided Midstream Performed By: #### C UU, UHCG, ADDONUAPLUS #### [address] Hyaline Casts,Urine 9-19 High 0-8 [facility] Comment on above: Order Comment: Name Collection Type:: Clean-Voided Midstream Performed By: #### C UU, UHCG, ADDONUAPLUS #### [address] Ketones Ql (U) 3+ High Negative The [facility] Comment on above: Order Comment: Name Collection Type:: Clean-Voided Midstream Performed By: #### C UU, UHCG, ADDONUAPLUS #### [address] Leukocyte esterase Test strip Ql (U) 2+ High Negative The [facility] Comment on above: Order Comment: Name Collection Type:: Clean-Voided Midstream Performed By: #### C UU, UHCG, ADDONUAPLUS #### [place] [address] [place] Nitrite,Urine Negative Normal Negative [facility] Comment on above: Order Comment: Name Collection Type:: Clean-Voided Midstream Performed By: #### C UU, UHCG, ADDONUAPLUS #### [place] [address] [place] Occult Blood,Urine Negative Normal Negative The [facility] Comment on above: Order Comment: Name Collection Type:: Clean-Voided Midstream Performed By: #### C UU, UHCG, ADDONUAPLUS #### [place] [address] [place] RBC,Urine 5-9 High 0-4 [facility] Comment on above: Order Comment: Name Collection Type:: Clean-Voided Midstream Performed By: #### C UU, UHCG, ADDONUAPLUS #### [address] Renal Epithelial Cells,Urine None Seen Normal 0-1 [facility] Comment on above: Order Comment: Name Collection Type:: Clean-Voided Midstream Performed By: #### C UU, UHCG, ADDONUAPLUS #### [address] Specificy [place],Urine 1.027 Normal 1.001-1.030 [facility] Comment on above: Order Comment: Name Collection Type:: Clean-Voided Midstream Performed By: #### C UU, UHCG, ADDONUAPLUS #### [address] Squamous Epithelial Cell,Urine 20-30 High 0-2 [facility] Comment on above: Order Comment: Name Collection Type:: Clean-Voided Midstream Performed By: #### C UU, UHCG, ADDONUAPLUS #### [address] Urobilinogen,Urine Normal Normal Normal The [facility] Comment on above: Order Comment: Name Collection Type:: Clean-Voided Midstream Performed By: #### C UU, UHCG, ADDONUAPLUS #### [address] WBC,Urine 10-19 High 0-4 [facility] Comment on above: Order Comment: Name Collection Type:: Clean-Voided Midstream Performed By: #### C UU, UHCG, ADDONUAPLUS #### [address] ECG 12 lead ECGon 11-29-2023 ECG 12 lead ECG [facility] Main [place] [address] [place] [address] Electrocardiograph Report Signed Patient: Luis Miguel Temple MR#: [id number] : 1990 Acct:[id number] Age/Sex: 33 / F ADM Date: 11/29/23 Loc: ER Room: Type: [facility] ER Attending Dr: Ordering Provider: Marisol Alexis DO Date of Service: 11/29/2307/15/1910 ECG/ECG 12 lead ECG: Nausea/Vomiting/Joseline rrhea Copies to: Test Reason : Blood Pressure : / mmHG Vent. Rate : 066 BPM Atrial Rate : 066 BPM P-R Int : 172 ms QRS Dur : 084 ms QT Int : 414 ms P-R-T Axes : 044 087 042 degrees QTc Int : 434 ms Normal sinus rhythm with sinus arrhythmia Normal ECG When compared with ECG of 24-AUG-2021 13:42, No significant change was found Confirmed by MARISOL ALEXIS DO ([id number]) on 11/30/2023 1:52:58 AM Referred By: Electronically Signed By:MARISOL ALEXIS DO Transcribed By: MUS Signed By Marisol Alexis DO 11/30 0153 Normal [facility] Erythrocyte distribution wid th [Ratio] by Automated countOrdered By: Marisol Alexis on 11-29-2023 Erythrocyte distribution width (RBC) [Ratio] 13.9 % Normal 11.9-15.3 [facility] Comment on above: Performed By: #### C BC #### [facility] [address] Erythrocytes [#/volume] in B lood by Automated countOrdered By: Marisol Alexis on 11-29-2023 RBC (Bld) [#/Vol] 4.71 10*6/uL Normal 3.60-5.00 [facility] Comment on above: Performed By: #### C BC #### [facility] [address] Globulin Calc (S) [Mass/Vol] Ordered By: Marisol Alexis on 11-29-2023 Globulin (S) [Mass/Vol] 2.9 g/dL [facility] Glucose [Mass/volume] in Ser um or PlasmaOrdered By: Marisol Alexis on 11-29-2023 Glucose [Mass/Vol] 132 mg/dL 70-100 [facility] Comment on above: ADA recommended refe rence rangeRandom Glucose Reference Range is dependent on time and content of last meal. Glucose of more than 200 mg/dL in a nonstressed, ambulatory subject supports the diagnosis of Diabetes Mellitus. HCG ( test) IA.rapi d Ql (U)Ordered By: Marisol Alexis on 11-29-2023 HCG ( test) Ql (U) Negative [facility] HCG,Urineon 11-29-2023 Beta HCG ( test) Ql (U) Negative Normal [facility] Comment on above: Order Comment: Name Collection Type:: Clean-Voided Midstream Result Comment: PERF ORMED BY: [place] [address] PATHOLOGIST FLUX TUBE ATTENDANT RODNEY BRITTON M.D. Performed By: #### C UU, UHCG, ADDONUAPLUS #### [facility] [address] [place] [address] Hematocrit [Volume Fraction] of Blood by Automated countOrdered By: Marisol Alexis on 11-29-2023 Hematocrit (Bld) [Volume fraction] 41.5 % Normal 34.0-46.4 [facility] Comment on above: Performed By: #### C BC #### [facility] [address] [place] [address] Hemoglobin [Mass/volume] in BloodOrdered By: Marisol Alexis on 11-29-2023 Hemoglobin (Bld) [Mass/Vol] 13.9 g/dL Normal 11.8-15.4 [facility] Comment on above: Performed By: #### C BC #### [facility] [address] [place] [address] Ketones Auto test strip (U) [Mass/Vol]Ordered By: Marisol Alexis on 11-29-2023 Ketones (U) [Mass/Vol] 3+ Negative [facility] - UrinalysisOrder ed By: Marisol Alexis on 11-29-2023 Hyaline casts LM Ql (Urine sed) 9-19 [LPF] 0-8 [facility] Lactate [Moles/volume] in Se rum or PlasmaOrdered By: Marisol Alexis on 11-29-2023 Lactate [Moles/Vol] 1.6 mmol/L Normal 0.5-2.2 [facility] Comment on above: Result Comment: PERF ORMED BY: [place] [address] PATHOLOGIST FLUX TUBE ATTENDANT RODNEY BRITTON M.D. Performed By: #### L IPASE, CUBLD, LACTIC #### [facility] [address] [place] [address] Leukocytes [#/volume] correc ahsan for nucleated erythrocytes in Blood by Automated counOrdered By: Marisol Alexis on 11-29-2023 WBC corrected for nucl RBC Auto (Bld) [#/Vol] 16.4 10*3/uL 3.8-11.6 [facility] Leukocytes [#/volume] in Blo od by Automated countOrdered By: Marisol Alexis on 11-29-2023 WBC (Bld) [#/Vol] 16.4 10*3/uL High 3.8-11.6 [facility] Comment on above: Performed By: #### C BC #### [facility] [address] [place] [address] Lipase [Enzymatic activity/v olume] in Serum or PlasmaOrdered By: Marisol Alexis on 11-29-2023 Lipase [Catalytic activity/Vol] 10.0 U/L Low 11.0-82.0 [facility] Comment on above: Result Comment: PERF ORMED BY: [place] [address] PATHOLOGIST FLUX TUBE ATTENDANT RODNEY BRITTON M.D. Performed By: #### L IPASE, CUBLD, LACTIC #### [facility] [address] [place] [address] [place] Lymphocytes [#/volume] in Bl ood by Automated countOrdered By: aMrisol Alexis on 11-29-2023 Lymphocytes (Bld) [#/Vol] 0.8 10*3/uL Low 1.00-4.8 [facility] Comment on above: Performed By: #### C BC #### [address] Lymphocytes/100 leukocytes i n Blood by Automated countOrdered By: Marisol Alexis on 11-29-2023 Lymphocytes/100 WBC (Bld) 5.0 % Normal . [facility] Comment on above: Performed By: #### C BC #### [address] MCH [Entitic mass] by Automa ahsan countOrdered By: Marisol Alexis on 11-29-2023 MCH (RBC) [Entitic mass] 29.6 pg Normal 24.7-34.3 [facility] Comment on above: Performed By: #### C BC #### [address] MCHC Auto (RBC) [Mass/Vol]Or dered By: Marisol Alexis on 11-29-2023 MCHC (RBC) [Mass/Vol] 33.5 g/dL 32.0-35.0 [facility] MCV [Entitic volume] by Auto mated countOrdered By: Marisol Alexis on 11-29-2023 MCV (RBC) [Entitic vol] 88.2 fL Normal 80-100 [facility] Comment on above: Performed By: #### C BC #### [address] Monocyte distribution width [Entitic volume] in Blood by AutomatedOrdered By: Marisol Alexis on 11-29-2023 Monocyte distribution width Auto (Bld) [Entitic vol] 20.83 % 0.00-20.00 [facility] Comment on above: For adults in ED, MD W > 20.0 may be associated with a higher risk of sepsis during the first 12 hrs of hospital admission Neutrophils [#/volume] in Bl ood by Automated countOrdered By: Marisol Alexis on 11-29-2023 Neutrophils (Bld) [#/Vol] 15.2 10*3/uL High 1.8-7.7 [facility] Comment on above: Performed By: #### C BC #### [address] Nitrite Test strip Ql (U)Ord ered By: Marisol Alexis on 11-29-2023 Nitrite Ql (U) Negative Negative [facility] No Panel InformationOrdered By: Marisol Alexis on 11-29-2023 Estimated GFR (CKD-EPI) > 60.0 mL/Min [facility] Creatinine Clearance (Chem 123.50 [facility] Nucleated erythrocytes [Pres ence] in Blood by Automated countOrdered By: Marisol Alexis on 11-29-2023 Nucleated RBC Auto Ql (Bld) 0.0 /100{WBC} 0-0.5 [facility] Platelet mean volume [Entiti c volume] in Blood by Automated countOrdered By: Marisol Alexis on 11-29-2023 Platelet mean volume (Bld) [Entitic vol] 8.1 fL Normal 6.3-10.7 [facility] Comment on above: Performed By: #### C BC #### [facility] [address] [place] [address] [place] Platelets [#/volume] in Bloo d by Automated countOrdered By: Marisol Alexis on 11-29-2023 Platelets (Bld) [#/Vol] 344 10*3/uL Normal 150-450 [facility] Comment on above: Performed By: #### C BC #### [facility] [address] Potassium [Moles/volume] in Serum or PlasmaOrdered By: Marisol Alexis on 11-29-2023 Potassium [Moles/Vol] 3.9 mmol/L 3.5-5.1 [facility] Protein [Mass/volume] in Ser um or PlasmaOrdered By: Marisol Alexis on 11-29-2023 Protein [Mass/Vol] 7.3 g/dL 6.4-8.9 [facility] Serum or plasma albumin/glob ulin mass ratioOrdered By: Marisol Alexis on 11-29-2023 Albumin/Globulin [Mass ratio] 1.5 {ratio} [facility] Serum or plasma anion gap de terminationOrdered By: Marisol Alexis on 11-29-2023 Anion gap [Moles/Vol] 10.2 mmol/L 6.0-15.0 [facility] Sodium [Moles/volume] in Ser um or PlasmaOrdered By: Marisol Alexis on 11-29-2023 Sodium [Moles/Vol] 138 mmol/L 136-145 [facility] Specific gravity Auto test s trip (U) [Rel density]Ordered By: Marisol Alexis on 11-29-2023 Specific gravity (U) [Rel density] 1.027 1.001-1.030 [facility] Squamous epithelial cells de tection in urine sediment by light microscopyOrdered By: Marisol Alexis on 11-29-2023 Epithelial cells.squamous LM Ql (Urine sed) 20-30 [HPF] 0-2 [facility] Troponin I High Sensitivityo n 11-29-2023 Troponin I High Sensitivity 3.3 pg/mL Normal 0.0-15.0 [facility] Comment on above: Result Comment: PERF ORMED BY: [place] [address] PATHOLOGIST FLUX TUBE ATTENDANT RODNEY BRITTON M.D. Performed By: #### C UU, [facility], ADDONUAPLUS #### [address] Troponin I.cardiac [Mass/vol ume] in Serum or Plasma by Detection limit <= 0.01 ng/Ordered By: Marisol Alexis on 11-29-2023 Troponin I.cardiac DL <= 0.01 ng/mL [Mass/Vol] 3.3 pg/mL 0.0-15.0 [facility] Urea nitrogen [Mass/volume] in Serum or PlasmaOrdered By: Marisol Alexis on 11-29-2023 Urea nitrogen [Mass/Vol] 8 mg/dL 7-25 [facility] Urine Cultureon 11-29-2023 Bacteria identified Cx Nom (U) ORGANISM: Staphylococcus aureus (O:STAAUR) [place] Count 20,000 Aerobic JAMES Charge (PCMIC38) ------ SUSCEPTIBILITY ----- ORGANISM: O:STAAUR ANTIBIOTIC INTERPRETATION JAMES Ceftaroline S <0.5 Ciprofloxacin S <1 Daptomycin S 1 Levofloxacin S <1 Linezolid S 4 Nitrofurantoin S <32 Oxacillin S <0.25 Penicillin S <0.03 Tetracycline S <4 Trimethoprim/Sulfam ethoxazole S <0.5 Vancomycin S 1 S = SUSCEPTIBLE I = INTERMEDIATE R = RESISTANT BLANK = DATA NOT AVAILABLE, OR DRUG NOT ADVISABLE OR TESTED R* = RESISTANCE DUE TO EXTENDED SPECTRUM BETA-LACTAMASES ESBL = EXTENDED SPECTRUM BETA-LACTAMASE TFG = THYMIDINE-DEPENDENT STRAIN RADAMES = BETA-LACTAMASE POSITIVE IB = INDUCIBLE BETA-LACTAMASE. APPEARS IN PLACE OF 'S' WITH SPECIES KNOWN TO POSSESS INDUCIBLE BETA-LACTAMASES. POTENTIALLY THEY MAY BECOME RESISTANT TO ALL B-LACTAM DRUGS. PERFORMED BY: [place] [address] PATHOLOGIST FLUX TUBE ATTENDANT RODNEY BRITTON M.D. Normal [facility] Comment on above: Performed By: #### C UU, CG, ADDONUAPLUS #### [address] Urine bacteria detection by automated methodOrdered By: Marisol Alexis on 11-29-2023 Bacteria Auto Ql (U) 2+ None Seen [facility] Urine clarity by refractomet ry automatedOrdered By: Marisol Alexis on 11-29-2023 Clarity Refractometry automated (U) Clear Clear [facility] Urine culture routineOrdered By: Marisol Alexis on 11-29-2023 Bacteria identified Cx Nom (U) Staphylococcus aureus [facility] Urine glucose measurement by automated test strip (mass/volume)Ordered By: Marisol Alexis on 11-29-2023 Glucose Auto test strip (U) [Mass/Vol] Normal mg/dL Normal [facility] Urine hemoglobin detection b y automated test stripOrdered By: Marisol Alexis on 11-29-2023 Hemoglobin Auto test strip Ql (U) Negative Negative [facility] Urine leukocyte esterase det ection by automated test stripOrdered By: Marisol Alexis on 11-29-2023 Leukocyte esterase Auto test strip Ql (U) 2+ Negative [facility] Urine pH measurement by auto mated test stripOrdered By: Marisol Alexis on 11-29-2023 pH (U) 7.5 [pH] Normal 5.0-9.0 [facility] Comment on above: Order Comment: Name Collection Type:: Clean-Voided Midstream Performed By: #### C UU, UHCG, ADDONUAPLUS #### [facility] [address] Urine protein measurement by automated test strip (mass/volume)Ordered By: Marisol Alexis on 11-29-2023 Protein (U) [Mass/Vol] 30 mg/dL High Negative [facility] Comment on above: Order Comment: Name Collection Type:: Clean-Voided Midstream Performed By: #### C UU, UHCG, ADDONUAPLUS #### [facility] [address] Urine sediment renal epithel ial cell count by microscopy (number/high power field)Ordered By: Mraisol Alexis on 11-29-2023 Epithelial cells.renal LM.HPF (Urine sed) [#/Area] None seen [HPF] 0-1 [facility] Urobilinogen Auto test strip (U) [Mass/Vol]Ordered By: Marisol Alexis on 11-29-2023 Urobilinogen (U) [Mass/Vol] Normal mg/dL Normal [facility] Alanine aminotransferase [En zymatic activity/volume] in Serum or PlasmaOrdered By: Handy Mcnulty on 10-08-2023 ALT [Catalytic activity/Vol] 14 U/L Normal 7-52 [facility] Comment on above: Performed By: #### C UU, UHCG, ADDONUAPLUS #### [facility] [address] Albumin [Mass/volume] in Ser um or Plasma by Bromocresol green (BCG) dye binding methoOrdered By: Handy Mcnulty on 10-08-2023 Albumin BCG dye [Mass/Vol] 4.4 g/dL 3.5-5.7 [facility] Alkaline phosphatase [Enzyma tic activity/volume] in Serum or PlasmaOrdered By: Handy Mcnulty on 10-08-2023 ALP [Catalytic activity/Vol] 62 U/L Normal 34-104 [facility] Comment on above: Performed By: #### C UU, UHCG, ADDONUAPLUS #### [address] Aspartate aminotransferase [ Enzymatic activity/volume] in Serum or PlasmaOrdered By: Handy Sarkararthy on 10-08-2023 AST [Catalytic activity/Vol] 13 U/L Normal 13-39 [facility] Comment on above: Performed By: #### C UU, UHCG, ADDONUAPLUS #### [address] Automated basophil %Ordered By: Handy Pricila on 10-08-2023 Basophils/100 WBC (Bld) 0.7 % Normal . [facility] Comment on above: Performed By: #### B MP, CBC, LIPASE, HEPATIC #### [address] Automated basophil countOrde red By: Handydanita Mcnulty on 10-08-2023 Basophils (Bld) [#/Vol] 0.1 10*3/uL Normal 0.0-0.2 [facility] Comment on above: Result Comment: PERF ORMED BY: [place] [address] PATHOLOGIST FLUX TUBE ATTENDANT RODNEY BRITTON M.D. Performed By: #### B MP, CBC, LIPASE, HEPATIC #### [address] Automated blood monocyte cou ntOrdered By: Handydanita Mcnulty on 10-08-2023 Monocytes (Bld) [#/Vol] 0.4 10*3/uL Normal 0.0-0.8 [facility] Comment on above: Performed By: #### B MP, CBC, LIPASE, HEPATIC #### [address] Automated eosinophil %Ordere d By: Handydanita Mcnulty on 10-08-2023 Eosinophils/100 WBC (Bld) 0.2 % Normal . [facility] Comment on above: Performed By: #### B MP, CBC, LIPASE, HEPATIC #### [place] [address] Automated eosinophil countOr dered By: Handy Penay on 10-08-2023 Eosinophils (Bld) [#/Vol] 0.0 10*3/uL Normal 0.0-0.45 [facility] Comment on above: Performed By: #### B MP, CBC, LIPASE, HEPATIC #### [address] Automated erythrocytes count in urine sediment (number/area)Ordered By: PROVIDER TEMP on 10-08-2023 RBC Auto (Urine sed) [#/Area] 3-4 [HPF] 0-4 [facility] Automated leukocytes count i n urine sediment (number/area)Ordered By: PROVIDER TEMP on 10-08-2023 WBC Auto (Urine sed) [#/Area] 10-19 [HPF] 0-4 [facility] Automated monocyte %Ordered By: Handy Mcnulty on 10-08-2023 Monocytes/100 WBC (Bld) 3.2 % Normal . [facility] Comment on above: Performed By: #### B MP, CBC, LIPASE, HEPATIC #### [address] Automated neutrophil %Ordere d By: Handy Mcnulty on 10-08-2023 Neutrophils/100 WBC (Bld) 87.9 % Normal . [facility] Comment on above: Performed By: #### B MP, CBC, LIPASE, HEPATIC #### [address] Automated urine color determ inationOrdered By: PROVIDER TEMP on 10-08-2023 Color (U) Yellow Normal Yellow [facility] Comment on above: Order Comment: Name Collection Type:: Clean-Voided Midstream Performed By: #### C UU, UHCG, ADDONUAPLUS #### [address] Basic Metabolic Panelon 09-22 Creatinine Clr Calc Pharmacy 122.98 Normal [facility] Comment on above: Performed By: #### C UU, UHCG, ADDONUAPLUS #### [address] [place] [address] [place] GFR/1.73 sq M.predicted MDRD (S/P/Bld) [Vol rate/Area] mL/min/{1.73_m2} Normal [facility] Comment on above: Performed By: #### C UU, CG, ADDONUAPLUS #### [facility] [address] Bilirubin Test strip Ql (U)O rdered By: PROVIDER TEMP on 10-08-2023 Bilirubin Ql (U) Negative Negative [facility] Bilirubin.direct [Mass/volum e] in Serum or PlasmaOrdered By: Handy Mcnulty on 10-08-2023 Bilirubin.direct [Mass/Vol] 0.10 mg/dL 0.03-0.18 [facility] Bilirubin.total [Mass/volume ] in Serum or PlasmaOrdered By: Handy Mcnulty on 10-08-2023 Bilirubin [Mass/Vol] 0.7 mg/dL Normal 0.3-1.0 [facility] Comment on above: Performed By: #### C UU, CG, ADDONUAPLUS #### [facility] [address] [place] [address] COVID CepheidOrdered By: Aiden Mcnulty on 10-08-2023 SARS-CoV-2 (COVID-19) Ab IA Ql Negative Negative [facility] Comment on above: This is a duplicate Cepheid Xpert Xpress CoV-2/Flu/RSV Plus RNA by RT-PCR result to be used for statistical tracking purpose only. SARS-CoV-2 (COVID-19) RNA ROSIE+probe Ql (Unsp spec) [facility] COVID-19 / Flu A/B / RSV PCR on 10-08-2023 SARS-CoV-2 (COVID-19) RNA ROSIE+probe Ql (Unsp spec) COVID-19 Cepheid Result Negative for SARS-CoV-2 RNA by RT-PCR Flu A Cepheid Result Negative for Flu A RNA by RT-PCR Flu B Cepheid Result Negative for Flu B RNA by RT-PCR RSV Cepheid Result Negative for RSV RNA by RT-PCR COVID19 Blank Space Reference: Negative COVID19 Blank Space Cepheid Disclaimer The Cepheid Xpert Xpress CoV-2/Flu/RSV Plus has Cepheid Disclaimer not been FDA cleared or approved; this test has Cepheid Disclaimer been authorized by FDA under an EUA for use by Cepheid Disclaimer authorized laboratories; this test has been Cepheid Disclaimer authorized only for the simultaneous qualitative Cepheid Disclaimer detection and differentiation of nucleic acids from Cepheid Disclaimer SARS-CoV-2, influenza A, influenza B, and Cepheid Disclaimer respiratory syncytial virus (RSV), and not for any Cepheid Disclaimer other viruses or pathogens; and this test is only Cepheid Disclaimer authorized for the duration of the declaration that Cepheid Disclaimer circumstances exist justifying the authorization of Cepheid Disclaimer emergency use of in vitro diagnostic tests for Cepheid Disclaimer detection and/or diagnosis of COVID-19 under Cepheid Disclaimer Section 564(b)(1) of the Act, 21 U.S.C. 360bbb- Cepheid Disclaimer 3(b)(1), unless the authorization is terminated or Cepheid Disclaimer revoked sooner. PERFORMED BY: [place] [address] PATHOLOGIST FLUX TUBE ATTENDANT RODNEY BRITTON M.D. Normal [facility] Comment on above: Performed By: #### C ELAYNE NARANJO ADDONUAPLUS #### [place] [id number] [facility] Calcium [Mass/volume] in Ser um or PlasmaOrdered By: Handy Mcnulty on 10-08-2023 Calcium [Mass/Vol] 9.3 mg/dL Normal 8.6-10.3 [facility] Comment on above: Performed By: #### C UU, UHCG, ADDONUAPLUS #### [address] Carbon dioxide, total [Moles /volume] in Serum or PlasmaOrdered By: Handy Mcnulty on 10-08-2023 CO2 [Moles/Vol] 22.7 mmol/L Normal 21.0-31.0 [facility] Comment on above: Performed By: #### C UU, UHCG, ADDONUAPLUS #### [address] Cepheid COVID PCR Negativeon 10-08-2023 SARS-CoV-2 (COVID-19) RNA ROSIE+probe Ql (Unsp spec) Negative Normal Negative [facility] Comment on above: Result Comment: This is a duplicate Cepheid Xpert Xpress CoV-2/Flu/RSV Plus RNA by RT-PCR result to be used for statistical tracking purpose only. PERFORMED BY: [place] [address] PATHOLOGIST FLUX TUBE ATTENDANT RODNEY BRITTON M.D. Performed By: #### C UU, UHCG, ADDONUAPLUS #### [address] Chloride [Moles/volume] in S carmen or PlasmaOrdered By: Handy Mcnulty on 10-08-2023 Chloride [Moles/Vol] 105 mmol/L Normal 98-107 [facility] Comment on above: Performed By: #### C UU, UHCG, ADDONUAPLUS #### [address] Complete Blood Count Auto Di ffon 10-08-2023 Mean Corpuscular HGB Conc 34.2 g/dL Normal 32.0-35.0 [facility] Comment on above: Performed By: #### B MP, CBC, LIPASE, HEPATIC #### [place] [address] [place] Monocytes/100 WBC (Bld) 17.22 % Normal 0.00-20.00 T david [facility] Comment on above: Performed By: #### B MP, CBC, LIPASE, HEPATIC #### [facility] [address] NRBC% 0.1 /100{WBC} Normal 0-0.5 [facility] Comment on above: Performed By: #### B MP, CBC, LIPASE, HEPATIC #### [address] Creatinine [Mass/volume] in Serum or PlasmaOrdered By: Handy Mcnulty on 10-08-2023 Creatinine [Mass/Vol] 0.74 mg/dL Normal 0.60-1.20 [facility] Comment on above: Performed By: #### C UU, UHCG, ADDONUAPLUS #### [address] Dipstick and Microscopicon 1 12-08-2022 Appearance (U) Cloudy Critically abnormal Clear [facility] Comment on above: Order Comment: Name Collection Type:: Clean-Voided Midstream Performed By: #### C UU, UHCG, ADDONUAPLUS #### [address] Bacteria,Urine 1+ High None Seen [facility] Comment on above: Order Comment: Name Collection Type:: Clean-Voided Midstream Performed By: #### C UU, UHCG, ADDONUAPLUS #### [address] Bilirubin,Urine Negative Normal Negative The [facility] Comment on above: Order Comment: Name Collection Type:: Clean-Voided Midstream Performed By: #### C UU, UHCG, ADDONUAPLUS #### [address] Glucose Ql (U) Normal Normal Normal [facility] Comment on above: Order Comment: Name Collection Type:: Clean-Voided Midstream Performed By: #### C UU, UHCG, ADDONUAPLUS #### [place] [address] [place] Hyaline Casts,Urine 0-8 Normal 0-8 [facility] Comment on above: Order Comment: Name Collection Type:: Clean-Voided Midstream Result Comment: PERF ORMED BY: [place] [address] PATHOLOGIST FLUX TUBE ATTENDANT RODNEY BRITTON M.D. Performed By: #### C UU, UHCG, ADDONUAPLUS #### [place] [address] [place] Ketones Ql (U) 2+ High Negative [facility] Comment on above: Order Comment: Name Collection Type:: Clean-Voided Midstream Performed By: #### C UU, UHCG, ADDONUAPLUS #### [place] [address] [place] Leukocyte esterase Test strip Ql (U) 1+ High Negative [facility] Comment on above: Order Comment: Name Collection Type:: Clean-Voided Midstream Performed By: #### C UU, UHCG, ADDONUAPLUS #### [place] [address] [place] Nitrite,Urine Negative Normal Negative [facility] Comment on above: Order Comment: Name Collection Type:: Clean-Voided Midstream Performed By: #### C UU, UHCG, ADDONUAPLUS #### [place] [address] [place] Occult Blood,Urine Negative Normal Negative [facility] Comment on above: Order Comment: Name Collection Type:: Clean-Voided Midstream Result Comment: PERF ORMED BY: [place] [address] PATHOLOGIST FLUX TUBE ATTENDANT RODNEY BRITTON M.D. Performed By: #### C UU, UHCG, ADDONUAPLUS #### [place] [address] [place] Protein,Urine Trace High Negative [facility] Comment on above: Order Comment: Name Collection Type:: Clean-Voided Midstream Performed By: #### C UU, UHCG, ADDONUAPLUS #### [address] RBC,Urine 3-4 Normal 0-4 [facility] Comment on above: Order Comment: Name Collection Type:: Clean-Voided Midstream Performed By: #### C UU, UHCG, ADDONUAPLUS #### [address] Specificy [place],Urine 1.032 High 1.001-1.030 [facility] Comment on above: Order Comment: Name Collection Type:: Clean-Voided Midstream Performed By: #### C UU, UHCG, ADDONUAPLUS #### [address] Squamous Epithelial Cell,Urine 10-19 High 0-2 [facility] Comment on above: Order Comment: Name Collection Type:: Clean-Voided Midstream Performed By: #### C UU, UHCG, ADDONUAPLUS #### [address] Urobilinogen,Urine Normal Normal Normal The [facility] Comment on above: Order Comment: Name Collection Type:: Clean-Voided Midstream Performed By: #### C UU, UHCG, ADDONUAPLUS #### [address] WBC,Urine 10-19 High 0-4 [facility] Comment on above: Order Comment: Name Collection Type:: Clean-Voided Midstream Performed By: #### C UU, UHCG, ADDONUAPLUS #### [address] Erythrocyte distribution wid th [Ratio] by Automated countOrdered By: Handy Mcnulty on 10-08-2023 Erythrocyte distribution width (RBC) [Ratio] 13.3 % Normal 11.9-15.3 [facility] Comment on above: Performed By: #### B MP, CBC, LIPASE, HEPATIC #### [address] [place] [address] [place] Erythrocytes [#/volume] in B lood by Automated countOrdered By: Handy Sarkararthy on 10-08-2023 RBC (Bld) [#/Vol] 4.67 10*6/uL Normal 3.60-5.00 [facility] Comment on above: Performed By: #### B MP, CBC, LIPASE, HEPATIC #### [facility] [address] [place] [address] [place] Glucose [Mass/volume] in Ser um or PlasmaOrdered By: Handy Mcnulty on 10-08-2023 Glucose [Mass/Vol] 128 mg/dL High 70-100 [facility] Comment on above: ADA recommended refe rence rangeRandom Glucose Reference Range is dependent on time and content of last meal. Glucose of more than 200 mg/dL in a nonstressed, ambulatory subject supports the diagnosis of Diabetes Mellitus. Result Comment: [place] om Glucose Reference Range is dependent on time and content of last meal. Glucose of more than 200 mg/dL in a nonstressed, ambulatory subject supports the diagnosis of Diabetes Mellitus. ADA recommended reference range Performed By: #### C UU, UHCG, ADDONUAPLUS #### [facility] [address] [place] [address] [place] HCG ( test) IA.rapi d Ql (U)Ordered By: Handy Mcnulty on 10-08-2023 HCG ( test) Ql (U) Negative [facility] HCG,Urineon 10-08-2023 Beta HCG ( test) Ql (U) Negative Normal [facility] Comment on above: Result Comment: PERF ORMED BY: [place] [address] PATHOLOGIST FLUX TUBE ATTENDANT RODNEY BRITTON M.D. Performed By: #### C UU, UHCG, ADDONUAPLUS #### [facility] [address] Hematocrit [Volume Fraction] of Blood by Automated countOrdered By: Handy Mcnulty on 10-08-2023 Hematocrit (Bld) [Volume fraction] 40.3 % Normal 34.0-46.4 [facility] Comment on above: Performed By: #### B MP, CBC, LIPASE, HEPATIC #### [facility] [address] [place] [address] Hemoglobin [Mass/volume] in BloodOrdered By: Handy Mcnulty on 10-08-2023 Hemoglobin (Bld) [Mass/Vol] 13.8 g/dL Normal 11.8-15.4 [facility] Comment on above: Performed By: #### B MP, CBC, LIPASE, HEPATIC #### [facility] [address] Hepatic Panelon 10-08-2023 Albumin [Mass/Vol] 4.4 g/dL Normal 3.5-5.7 [facility] Comment on above: Performed By: #### C UU, UHCG, ADDONUAPLUS #### [address] Bilirubin,Indirect 0.6 mg/dL Normal [facility] Comment on above: Performed By: #### C UU, UHCG, ADDONUAPLUS #### [address] Bilirubin.indirect [Mass/Vol] 0.10 mg/dL Normal 0.03-0.18 [facility] Comment on above: Performed By: #### C UU, UHCG, ADDONUAPLUS #### [address] Ketones Auto test strip (U) [Mass/Vol]Ordered By: PROVIDER TEMP on 10-08-2023 Ketones (U) [Mass/Vol] 2+ Negative [facility] - UrinalysisOrder ed By: PROVIDER TEMP on 10-08-2023 Hyaline casts LM Ql (Urine sed) 0-8 [LPF] 0-8 [facility] Leukocytes [#/volume] correc ahsan for nucleated erythrocytes in Blood by Automated counOrdered By: Handy Mcnulty on 10-08-2023 WBC corrected for nucl RBC Auto (Bld) [#/Vol] 12.7 10*3/uL 3.8-11.6 [facility] Leukocytes [#/volume] in Blo od by Automated countOrdered By: Handydanita Mcnulty on 10-08-2023 WBC (Bld) [#/Vol] 12.7 10*3/uL High 3.8-11.6 [facility] Comment on above: Performed By: #### B MP, CBC, LIPASE, HEPATIC #### [address] Lipase [Enzymatic activity/v olume] in Serum or PlasmaOrdered By: Handy Mcnulty on 10-08-2023 Lipase [Catalytic activity/Vol] 9.0 U/L Low 11.0-82.0 [facility] Comment on above: Result Comment: PERF ORMED BY: [place] [address] PATHOLOGIST FLUX TUBE ATTENDANT RODNEY BRITTON M.D. Performed By: #### C UU, CG, ADDONUAPLUS #### [place] [address] [place] Lymphocytes [#/volume] in Bl ood by Automated countOrdered By: Handy Mcnulty on 10-08-2023 Lymphocytes (Bld) [#/Vol] 1.0 10*3/uL Normal 1.00-4.8 [facility] Comment on above: Performed By: #### B MP, CBC, LIPASE, HEPATIC #### [place] [address] [place] Lymphocytes/100 leukocytes i n Blood by Automated countOrdered By: Handy Mcnulty on 10-08-2023 Lymphocytes/100 WBC (Bld) 8.0 % Normal . [facility] Comment on above: Performed By: #### B MP, CBC, LIPASE, HEPATIC #### [place] [address] [place] MCH [Entitic mass] by Automa ahsan countOrdered By: Handy Mcnulty on 10-08-2023 MCH (RBC) [Entitic mass] 29.5 pg Normal 24.7-34.3 [facility] Comment on above: Performed By: #### B MP, CBC, LIPASE, HEPATIC #### [facility] [address] MCHC Auto (RBC) [Mass/Vol]Or dered By: Handy Mcnulty on 10-08-2023 MCHC (RBC) [Mass/Vol] 34.2 g/dL 32.0-35.0 [facility] MCV [Entitic volume] by Auto mated countOrdered By: Handy Mcnulty on 10-08-2023 MCV (RBC) [Entitic vol] 86.3 fL Normal 80-100 [facility] Comment on above: Performed By: #### B MP, CBC, LIPASE, HEPATIC #### [facility] [address] [place] [address] Monocyte distribution width [Entitic volume] in Blood by AutomatedOrdered By: Handy Mcnulty on 10-08-2023 Monocyte distribution width Auto (Bld) [Entitic vol] 17.22 % 0.00-20.00 [facility] Neutrophils [#/volume] in Bl ood by Automated countOrdered By: Handy Mcnulty on 10-08-2023 Neutrophils (Bld) [#/Vol] 11.2 10*3/uL High 1.8-7.7 [facility] Comment on above: Performed By: #### B MP, CBC, LIPASE, HEPATIC #### [facility] [address] [place] [address] Nitrite Test strip Ql (U)Ord ered By: PROVIDER TEMP on 10-08-2023 Nitrite Ql (U) Negative Negative [facility] No Panel InformationOrdered By: Handy Mcnulty on 10-08-2023 Estimated GFR (CKD-EPI) > 60.0 mL/Min [facility] Creatinine Clearance (Chem 122.98 [facility] Nucleated erythrocytes [Pres ence] in Blood by Automated countOrdered By: Handy Mcnulty on 10-08-2023 Nucleated RBC Auto Ql (Bld) 0.1 /100{WBC} 0-0.5 [facility] Platelet mean volume [Entiti c volume] in Blood by Automated countOrdered By: Handy Mcnulty on 10-08-2023 Platelet mean volume (Bld) [Entitic vol] 8.1 fL Normal 6.3-10.7 [facility] Comment on above: Performed By: #### B MP, CBC, LIPASE, HEPATIC #### [facility] [address] Platelets [#/volume] in Bloo d by Automated countOrdered By: Handy Mcnulty on 10-08-2023 Platelets (Bld) [#/Vol] 371 10*3/uL Normal 150-450 [facility] Comment on above: Performed By: #### B MP, CBC, LIPASE, HEPATIC #### [address] Potassium [Moles/volume] in Serum or PlasmaOrdered By: Handy Sarkararthy on 10-08-2023 Potassium [Moles/Vol] 3.8 mmol/L Normal 3.5-5.1 [facility] Comment on above: Performed By: #### C UU, UHCG, ADDONUAPLUS #### [address] Protein Auto test strip (U) [Mass/Vol]Ordered By: ALEXSANDER TEMJimmie on 10-08-2023 Protein (U) [Mass/Vol] Trace mg/dL Negative [facility] Protein [Mass/volume] in Ser um or PlasmaOrdered By: Handy Mcnulty on 10-08-2023 Protein [Mass/Vol] 7.2 g/dL Normal 6.4-8.9 [facility] Comment on above: Performed By: #### C UU, UHCG, ADDONUAPLUS #### [address] Serum globulin measurement b y calculation (mass/volume)Ordered By: Handy Mcnulty on 10-08-2023 Globulin (S) [Mass/Vol] 2.8 g/dL Normal [facility] Comment on above: Performed By: #### C UU, UHCG, ADDONUAPLUS #### [address] Serum or plasma albumin/glob ulin mass ratioOrdered By: Handy Mcnulty on 10-08-2023 Albumin/Globulin [Mass ratio] 1.6 {ratio} Normal [facility] Comment on above: Performed By: #### C UU, FREYACG, ADDONUAPLUS #### [facility] [address] [place] [address] Serum or plasma anion gap de terminationOrdered By: Handy Mcnulty on 10-08-2023 Anion gap [Moles/Vol] 12.1 mmol/L Normal 6.0-15.0 [facility] Comment on above: Performed By: #### C UFrannie, ELAYNE, ADDONUAPLUS #### [facility] [address] [place] [address] Serum or plasma non-glucuron idated bilirubin measurement (mass/volume)Ordered By: Handy Mcnulty on 10-08-2023 Bilirubin.indirect [Mass/Vol] 0.6 mg/dL [facility] Sodium [Moles/volume] in Ser um or PlasmaOrdered By: Handy Mcnulty on 10-08-2023 Sodium [Moles/Vol] 136 mmol/L Normal 136-145 [facility] Comment on above: Performed By: #### C UFREYA KathleenCMaurice, ADDONUAPLUS #### [facility] [address] [place] [address] Specific gravity Auto test s trip (U) [Rel density]Ordered By: PROVIDER TEMP on 10-08-2023 Specific gravity (U) [Rel density] 1.032 1.001-1.030 [facility] Squamous epithelial cells de tection in urine sediment by light microscopyOrdered By: PROVIDER TEMP on 10-08-2023 Epithelial cells.squamous LM Ql (Urine sed) 10-19 [HPF] 0-2 [facility] Urea nitrogen [Mass/volume] in Serum or PlasmaOrdered By: Handy Mcnulty on 10-08-2023 Urea nitrogen [Mass/Vol] 8 mg/dL Normal 7-25 [facility] Comment on above: Performed By: #### C UU, UHCG, ADDONUAPLUS #### [facility] [address] [place] [address] [place] Urine Cultureon 10-08-2023 Bacteria identified Cx Nom (U) >100,000 colonies/ml mixed bacterial skin contaminants 2 Days PERFORMED BY: [place] [address] PATHOLOGIST FLUX TUBE ATTENDANT RODNEY BRITTON M.D. Normal [facility] Comment on above: Performed By: #### C UUFREYACG, ADDONUAPLUS #### [facility] [address] [place] [address] Urine bacteria detection by automated methodOrdered By: PROVIDER TEMP on 10-08-2023 Bacteria Auto Ql (U) 1+ None Seen [facility] Urine clarity by refractomet ry automatedOrdered By: PROVIDER TEMP on 10-08-2023 Clarity Refractometry automated (U) Cloudy Clear [facility] Urine culture routineOrdered By: PROVIDER TEMP on 10-08-2023 Bacteria identified Cx Nom (U) 2 Days [facility] Urine glucose measurement by automated test strip (mass/volume)Ordered By: PROVIDER TEMP on 10-08-2023 Glucose Auto test strip (U) [Mass/Vol] Normal mg/dL Normal [facility] Urine hemoglobin detection b y automated test stripOrdered By: PROVIDER TEMP on 10-08-2023 Hemoglobin Auto test strip Ql (U) Negative Negative [facility] Urine leukocyte esterase det ection by automated test stripOrdered By: PROVIDER TEMP on 10-08-2023 Leukocyte esterase Auto test strip Ql (U) 1+ Negative [facility] Urine pH measurement by auto mated test stripOrdered By: PROVIDER TEMP on 10-08-2023 pH (U) 6.0 [pH] Normal 5.0-9.0 [facility] Comment on above: Order Comment: Name Collection Type:: Clean-Voided Midstream Performed By: #### C UU, UHCG, ADDONUAPLUS #### [facility] [address] [place] [address] Urobilinogen Auto test strip (U) [Mass/Vol]Ordered By: PROVIDER TEMP on 10-08-2023 Urobilinogen (U) [Mass/Vol] Normal mg/dL Normal [facility] COVID CepheidOrdered By: Quintin Corley on 04-28-2023 SARS-CoV-2 (COVID-19) Ab IA Ql Negative Negative [facility] Comment on above: This is a duplicate Cepheid Xpert Xpress CoV-2/Flu/RSV Plus RNA by RT-PCR result to be used for statistical tracking purpose only. SARS-CoV-2 (COVID-19) RNA ROSIE+probe Ql (Unsp spec) [facility] Quick Strepon 04-27-2023 S. pyogenes Org specific cx Ql (Throat) Negative [employer] Other Quick Strep [employer] Other CBC AUTO DIFFon 08-18-2021 BASO # 0.0 103/ul Normal 0.0-0.1 [facility] Comment on above: Performed By: #### C BC #### [facility] [address] [place] [address] Dr. Alejandra Han Basophils/100 WBC (Bld) 0.2 % Normal 0.2-2.0 [facility] Comment on above: Performed By: #### C BC #### [facility] [address] [place] [address] Dr. Alejandra Han EO # 0.0 103/ul Normal 0.0-0.7 [facility] Comment on above: Performed By: #### C BC #### [facility] [address] [place] [address] Dr. Alejandra Han Eosinophils/100 WBC (Bld) 0.0 % Critically low 0.9-7.0 [facility] Comment on above: Performed By: #### C BC #### [facility] [address] [place] [address] Dr. Alejandra Han Erythrocyte distribution width (RBC) [Ratio] 12.3 % Normal 11.0-15.0 [facility] Comment on above: Performed By: #### C BC #### [facility] [address] [place] [address] Dr. Alejandra Han Hematocrit (Bld) [Volume fraction] 42.2 % Normal 36.0-48.0 [facility] Comment on above: Performed By: #### C BC #### [facility] [address] [place] [address] Dr. Alejandra Han Hemoglobin (Bld) [Mass/Vol] 14.3 g/dL Normal 12.0-16.0 [facility] Comment on above: Performed By: #### C BC #### [facility] [address] [place] [address] [address] Alejandra Han IG # 0.03 10e3/ul Normal 0.00-0.03 [facility] Comment on above: Performed By: #### C BC #### [facility] [address] [place] [address] Dr. Alejandra Hna IG % 0.5 % Normal 0.0-0.5 [facility] Comment on above: Performed By: #### C BC #### [facility] [address] [place] [address] Dr. Alejandra Han LYMPH # 0.4 103/ul Critically low 1.2-3.8 [facility] Comment on above: Performed By: #### C BC #### [facility] [address] [place] [address] Dr. Alejandra Han Lymphocytes/100 WBC (Bld) 6.5 % Critically low 20.5-60.0 [facility] Comment on above: Performed By: #### C BC #### [facility] [address] [place] [address] Dr. Alejandra Han MANUAL DIFF REQ NO Normal [facility] Comment on above: Performed By: #### C BC #### [facility] [address] [place] [address] Dr. Alejandra Han MCH (RBC) [Entitic mass] 30.0 pg Normal 26.7-34.0 [facility] Comment on above: Performed By: #### C BC #### [facility] [address] [place] [address] Dr. Alejandra Han MCHC (RBC) [Mass/Vol] 33.9 g/dL Normal 29.9-35.2 [facility] Comment on above: Performed By: #### C BC #### [facility] [address] [place] [address] Dr. Alejandra Han MCV (RBC) [Entitic vol] 88.5 fL Normal 81.0-99.0 [facility] Comment on above: Performed By: #### C BC #### [facility] [address] [place] [address] Dr. Alejandra Han MONO # 0.2 103/ul Critically low 0.3-0.8 [facility] Comment on above: Performed By: #### C BC #### [facility] [address] [place] [address] Dr. Alejandra Han Monocytes/100 WBC (Bld) 3.6 % Normal 1.7-12.0 [facility] Comment on above: Performed By: #### C BC #### [facility] [address] [place] [address] Dr. Alejandra Han NEUT # 5.5 103/ul Normal 1.4-6.5 [facility] Comment on above: Performed By: #### C BC #### [facility] [address] [place] [address] Dr. Alejandra Han Neutrophils/100 WBC (Bld) 89.2 % Critically high 43.0-75.0 [facility] Comment on above: Performed By: #### C BC #### [facility] [address] [place] [address] Dr. Alejandra Han Platelet mean volume (Bld) [Entitic vol] 9.6 fL Normal 9.5-13.5 [facility] Comment on above: Performed By: #### C BC #### [facility] [address] [place] [address] Dr. Alejandra Han PLT 231 103/ul Normal 150-450 [facility] Comment on above: Performed By: #### C BC #### [facility] [address] [place] [address] Dr. Alejandra Han RBC 4.77 106/ul Normal 4.20-5.40 [facility] Comment on above: Performed By: #### C BC #### [facility] [address] [place], [place] [address] Dr. Alejandra Han WBC 6.2 103/ul Normal 4.0-11.0 [facility] Comment on above: Performed By: #### C BC #### [facility] [address] [place], [place] [address] Dr. Alejandra Han CTA CHEST WO W CONon 021 CTA CHEST WO W CON EXAM: CTA CHEST WO W CON 08/18/2021 12:01 AM EDT [facility] CLINICAL STATEMENT: SHORTNESS OF BREATH COMPARISON: No prior studies are available at the time of dictation. TECHNIQUE: Helically acquired images were obtained of the chest following 100 cc of Omnipaque 350 IV contrast as per pulmonary angiogram protocol with AEC is utilized. 2-D and 3D reconstructions were reviewed. FINDINGS: There is no evidence of pulmonary embolism, aortic aneurysm, or aortic dissection. The aortic arch branch vessels are grossly patent. The heart is not enlarged. There is no pericardial effusion or thickening. There is no enlarged mediastinal or hilar adenopathy. Patchy bilateral upper and lower lobe groundglass opacities and airspace disease. There are no pleural effusions. There are no enlarged (>3 mm) pulmonary nodules. There is no pneumothorax. There are no endobronchial lesions seen. The thyroid is homogeneous. No acute fracture. There are no destructive bone lesions identified. Screening images of the upper abdomen are grossly unremarkable. IMPRESSION: No evidence for pulmonary embolism, aortic aneurysm, or aortic dissection. Patchy bilateral upper and lower lobe groundglass opacities and airspace disease. Correlate for atypical viral pneumonitis and/or septic emboli. FOLLOW-UP: Follow-up as clinically indicated. Dose reduction techniques were achieved by using automated exposure control and/or adjustment of mA and/or kV according to patient size and/or use of iterative reconstruction technique. Electronically authenticated by: EDMOND PARKER Date: 2021-08-18 01:13 Normal [facility] D-DIMERon 08-18-2021 D-DIMER 0.70 mg/L FEU Critically high 0.19-0.50 [facility] Comment on above: Performed By: #### D DIM #### [facility] [address] [place] [address] Dr. Alejandra Han D-DIMER COMMENTS SEE BELOW Normal [facility] Comment on above: Result Comment: Incr eases in D-Dimer concentration observed with thromboembolic events can be variable due to localization, size, and age of the thrombus. Therefore, a thromboembolic event cannot be diagnosed with certainty on the basis of the reference range. D-Dimers may also be elevated for a variety of disorders including: advanced age, , coronary disease, cancer, liver disease, infection, inflammation, hematoma, DIC, trauma, post-surgery, diabetes, thrombolytic or anticoagulant therapy, stress, and generalized hospitalization. Performed By: #### D DIM #### [facility] [address] [place] [address] Dr. Alejandra Han PROF CHEM 8 (BAS METB)on Anion gap [Moles/Vol] 9.6 mmol/L Normal [facility] Comment on above: Performed By: #### B MP #### [facility] [address] [place] [address] Dr. Alejandra Han Calcium [Mass/Vol] 9.1 mg/dL Normal 8.4-10.2 [facility] Comment on above: Performed By: #### B MP #### [facility] [address] [place] [address] Dr. Alejandra Han Chloride [Moles/Vol] 100 mmol/L Normal 98-107 The [facility] Comment on above: Performed By: #### B MP #### [facility] [address] [place] [address] Dr. Alejandra Han CO2 [Moles/Vol] 28.6 mmol/L Normal 22.0-30.0 [facility] Comment on above: Performed By: #### B MP #### [facility] [address] [place] [address] Dr. Alejandra Han Creatinine [Mass/Vol] 0.97 mg/dL Normal 0.52-1.04 [facility] Comment on above: Performed By: #### B MP #### [facility] [address] [place] [address] Dr. Alejandra Han EGFR-AF JAPANESE >60 Normal >=60 [facility] Comment on above: Performed By: #### B MP #### [facility] [address] [place], [place] [address] Dr. Alejandra Han EGFR-NON AF JAPANESE >60 Normal >=60 [facility] Comment on above: Performed By: #### B MP #### [facility] [address] [place], [place] [address] Dr. Alejandra Han Glucose [Mass/Vol] 121 mg/dL Critically high 74-106 T [facility] Comment on above: Performed By: #### B MP #### [facility] [address] [place], [place] [address] Dr. Alejandra Han Potassium [Moles/Vol] 4.2 mmol/L Normal 3.4-5.0 [facility] Comment on above: Performed By: #### B MP #### [facility] [address] [place], [place] [address] Dr. Alejandra Han Sodium [Moles/Vol] 134 mmol/L Critically low 137-145 Th [facility] Comment on above: Performed By: #### B MP #### [facility] [address] [place], [place] [address] Dr. Alejandra Han Urea nitrogen [Mass/Vol] 13.0 mg/dL Normal 7.0-17.0 [facility] Comment on above: Performed By: #### B MP #### [facility] [address] [place], [place] [address] Dr. Alejandra Han Urea nitrogen/Creatinine [Mass ratio] 13.4 mg/mg Normal [facility] Comment on above: Performed By: #### B MP #### [facility] [address] [place], [place] [address] Dr. Alejandra Han Patient Letteron 12-19-2018 Patient Letter [id number] [id number] Patient Summaryon 10-26-2018 Ambulatory Patient Summary [address], [address] - Visit Summary For LUIS MIGUEL TEMPLE We would like to thank you for allowing us to assist you with your healthcare needs. Our entire staff strives to provide an excellent experience for our patients and their families. The following includes information regarding your visit. Age: 28 years Sex: FEMALE : 1990 Address: [address] [place] [address], [facility] Home: Work: -- Mobile: -- Primary Care Provider: Sierra Harris Gonya, Stephanie APRN, CNP Race: White Ethnicity: Not or Language: Latvian Health Plan: 1?ANTHEM Reason for Visit: 1 mo fu-MDD, started zoloft. Pt feels more tired this time around restarting med and thinks it needs to be increased. Follow-Up Information Future Appointments [facility] [address] [place] [address], [phone] Fax: -- Appt. Date: 11/30/2018 10:00 AM Scheduled Provider: Sierra Harris CNP Future Orders No future orders Additional Goals and Instructions: Allergies No Known Medication Allergies Vitals and Measurements this Visit (last charted value for your 10/26/2018 visit) Vital Signs This Visit Peripheral Pulse Rate: 80 bpm Pulse Site: Pulse Oximetry Systolic Blood Pressure: 130 mmHg Diastolic Blood Pressure: 90 mmHg BP Site: Left arm Measurements This Visit Height: 161.29 cm Height (inches): 63.5 in Weight: 90.26 kg Weight (lb): 198.572 lb BSA: 2.01 m2 Body Mass Index: 34.7 kg/m2 BSA Measured: 2 m2 Smoking Status Never (less than 100 in lifetime) Procedures No Procedures Documented Problems and Health Issues Anxiety Attention deficit hyperactivity disorder Depressive disorder Migraine Diagnoses This Visit Major depressive disorder, recurrent, mild (F32.9) Laboratory or Other Results This Visit (last charted value for your 10/26/2018 visit) No Laboratory or Other Results This Visit Medications and Immunizations Administered During This Visit No medication administered during this visit All Known Current Prescriptions and Reported Medications New Prescriptions this Visit Zoloft 100 mg oral tablet (sertraline) Take 1 tab(s)(100 Milligram) Oral every day, 0 refills authorized Prescriptions No previous prescriptions documented Home Medications Multivitamins with Vitamin B Complex, Vitamin C, Minerals and L-Methylfolate oral capsule (multivitamin, ) Take 1 cap(s) Oral every day Living With Anxiety After being diagnosed with an anxiety disorder, you may be relieved to know why you have felt or behaved a certain way. It is natural to also feel overwhelmed about the treatment ahead and what it will mean for your life. With care and support, you can manage this condition and recover from it. How to cope with anxiety Dealing with stress Stress is your body?s reaction to life changes and events, both good and bad. Stress can last just a few hours or it can be ongoing. Stress can play a major role in anxiety, so it is important to learn both how to cope with stress and how to think about it differently. Talk with your health care provider or a counselor to learn more about stress reduction. He or she may suggest some stress reduction techniques, such as: ? Music therapy. This can include creating or listening to music that you enjoy and that inspires you. ? Mindfulness-based meditation. This involves being aware of your normal breaths, rather than trying to control your breathing. It can be done while sitting or walking. ? Centering prayer. This is a kind of meditation that involves focusing on a word, phrase, or sacred image that is meaningful to you and that brings you peace. ? Deep breathing. To do this, expand your stomach and inhale slowly through your nose. Hold your breath for 3?5 seconds. Then exhale slowly, allowing your stomach muscles to relax. ? Self-talk. This is a skill where you identify thought patterns that lead to anxiety reactions and correct those thoughts. ? Muscle relaxation. This involves tensing muscles then relaxing them. Choose a stress reduction technique that fits your lifestyle and personality. Stress reduction techniques take time and practice. Set aside 5?15 minutes a day to do them. Therapists can offer training in these techniques. The training may be covered by some insurance plans. Other things you can do to manage stress include: ? Keeping a stress diary. This can help you learn what triggers your stress and ways to control your response. ? Thinking about how you respond to certain situations. You may not be able to control everything, but you can control your reaction. ? Making time for activities that help you relax, and not feeling guilty about spending your time in this way. Therapy combined with coping and stress-reduction skills provides the best chance for successful treatment. Medicines Medicines can help ease symptoms. Medicines for anxiety include: ? Anti-anxiety drugs. ? Antidepressants. ? Beta-blockers. Medicines may be used as the main treatment for anxiety disorder, along with therapy, or if other treatments are not working. Medicines should be prescribed by a health care provider. Relationships Relationships can play a big part in helping you recover. Try to spend more time connecting with trusted friends and family members. Consider going to couples counseling, taking family education classes, or going to family therapy. Therapy can help you and others better understand the condition. How to recognize changes in your condition Everyone has a different response to treatment for anxiety. Recovery from anxiety happens when symptoms decrease and stop interfering with your daily activities at home or work. This may mean that you will start to: ? Have better concentration and focus. ? Sleep better. ? Be less irritable. ? Have more energy. ? Have improved memory. It is important to recognize when your condition is getting worse. Contact your health care provider if your symptoms interfere with home or work and you do not feel like your condition is improving. Where to find help and support: You can get help and support from these sources: ? Self-help groups. ? Online and community organizations. ? A trusted spiritual leader. ? Couples counseling. ? Family education classes. ? Family therapy. Follow these instructions at home: ? Eat a healthy diet that includes plenty of vegetables, fruits, whole grains, low-fat dairy products, and lean protein. Do not eat a lot of foods that are high in solid fats, added sugars, or salt. ? Exercise. Most adults should do the following: ? Exercise for at least 150 minutes each week. The exercise should increase your heart rate and make you sweat (moderate-intensity exercise). ? Strengthening exercises at least twice a week. ? Cut down on caffeine, tobacco, alcohol, and other potentially harmful substances. ? Get the right amount and quality of sleep. Most adults need 7?9 hours of sleep each night. ? Make choices that simplify your life. ? Take ldlt-yat-jrbmtux and prescription medicines only as told by your health care provider. ? Avoid caffeine, alcohol, and certain lcsi-zod-qdlfehz cold medicines. These may make you feel worse. Ask your pharmacist which medicines to avoid. ? Keep all follow-up visits as told by your health care provider. This is important. Questions to ask your health care provider ? Would I benefit from therapy? ? How often should I follow up with a health care provider? ? How long do I need to take medicine? ? Are there any long-term side effects of my medicine? ? Are there any alternatives to taking medicine? Contact a health care provider if: ? You have a hard time staying focused or finishing daily tasks. ? You spend many hours a day feeling worried about everyday life. ? You become exhausted by worry. ? You start to have headaches, feel tense, or have nausea. ? You urinate more than normal. ? You have diarrhea. Get help right away if: ? You have a racing heart and shortness of breath. ? You have thoughts of hurting yourself or others. If you ever feel like you may hurt yourself or others, or have thoughts about taking your own life, get help right away. You can go to your nearest emergency department or call: ? Your local emergency services (911 in the [place] ? A suicide crisis helpline, such as the National Suicide Prevention Lifeline at . This is open 24-hours a day. Summary ? Taking steps to deal with stress can help calm you. ? Medicines cannot cure anxiety disorders, but they can help ease symptoms. ? Family, friends, and partners can play a big part in helping you recover from an anxiety disorder. This information is not intended to replace advice given to you by your health care provider. Make sure you discuss any questions you have with your health care provider. Document Released: 11/02/2017 Document Revised: 11/02/2017 Document Reviewed: 11/02/2017 [employer] Interactive Patient Education ? 2018 [employer]. [facility] Patient Handouton 10-26-2018 Patient Handout Mental and Behavioral Health Living With Anxiety After being diagnosed with an anxiety disorder, you may be relieved to know why you have felt or behaved a certain way. It is natural to also feel overwhelmed about the treatment ahead and what it will mean for your life. With care and support, you can manage this condition and recover from it. How to cope with anxiety Dealing with stress Stress is your body?s reaction to life changes and events, both good and bad. Stress can last just a few hours or it can be ongoing. Stress can play a major role in anxiety, so it is important to learn both how to cope with stress and how to think about it differently. Talk with your health care provider or a counselor to learn more about stress reduction. He or she may suggest some stress reduction techniques, such as: ? Music therapy. This can include creating or listening to music that you enjoy and that inspires you. ? Mindfulness-based meditation. This involves being aware of your normal breaths, rather than trying to control your breathing. It can be done while sitting or walking. ? Centering prayer. This is a kind of meditation that involves focusing on a word, phrase, or sacred image that is meaningful to you and that brings you peace. ? Deep breathing. To do this, expand your stomach and inhale slowly through your nose. Hold your breath for 3?5 seconds. Then exhale slowly, allowing your stomach muscles to relax. ? Self-talk. This is a skill where you identify thought patterns that lead to anxiety reactions and correct those thoughts. ? Muscle relaxation. This involves tensing muscles then relaxing them. Choose a stress reduction technique that fits your lifestyle and personality. Stress reduction techniques take time and practice. Set aside 5?15 minutes a day to do them. Therapists can offer training in these techniques. The training may be covered by some insurance plans. Other things you can do to manage stress include: ? Keeping a stress diary. This can help you learn what triggers your stress and ways to control your response. ? Thinking about how you respond to certain situations. You may not be able to control everything, but you can control your reaction. ? Making time for activities that help you relax, and not feeling guilty about spending your time in this way. Therapy combined with coping and stress-reduction skills provides the best chance for successful treatment. Medicines Medicines can help ease symptoms. Medicines for anxiety include: ? Anti-anxiety drugs. ? Antidepressants. ? Beta-blockers. Medicines may be used as the main treatment for anxiety disorder, along with therapy, or if other treatments are not working. Medicines should be prescribed by a health care provider. Relationships Relationships can play a big part in helping you recover. Try to spend more time connecting with trusted friends and family members. Consider going to couples counseling, taking family education classes, or going to family therapy. Therapy can help you and others better understand the condition. How to recognize changes in your condition Everyone has a different response to treatment for anxiety. Recovery from anxiety happens when symptoms decrease and stop interfering with your daily activities at home or work. This may mean that you will start to: ? Have better concentration and focus. ? Sleep better. ? Be less irritable. ? Have more energy. ? Have improved memory. It is important to recognize when your condition is getting worse. Contact your health care provider if your symptoms interfere with home or work and you do not feel like your condition is improving. Where to find help and support: You can get help and support from these sources: ? Self-help groups. ? Online and community organizations. ? A trusted spiritual leader. ? Couples counseling. ? Family education classes. ? Family therapy. Follow these instructions at home: ? Eat a healthy diet that includes plenty of vegetables, fruits, whole grains, low-fat dairy products, and lean protein. Do not eat a lot of foods that are high in solid fats, added sugars, or salt. ? Exercise. Most adults should do the following: ? Exercise for at least 150 minutes each week. The exercise should increase your heart rate and make you sweat (moderate-intensity exercise). ? Strengthening exercises at least twice a week. ? Cut down on caffeine, tobacco, alcohol, and other potentially harmful substances. ? Get the right amount and quality of sleep. Most adults need 7?9 hours of sleep each night. ? Make choices that simplify your life. ? Take danr-avd-ymlnrhb and prescription medicines only as told by your health care provider. ? Avoid caffeine, alcohol, and certain tiqf-cna-wnyzjxj cold medicines. These may make you feel worse. Ask your pharmacist which medicines to avoid. ? Keep all follow-up visits as told by your health care provider. This is important. Questions to ask your health care provider ? Would I benefit from therapy? ? How often should I follow up with a health care provider? ? How long do I need to take medicine? ? Are there any long-term side effects of my medicine? ? Are there any alternatives to taking medicine? Contact a health care provider if: ? You have a hard time staying focused or finishing daily tasks. ? You spend many hours a day feeling worried about everyday life. ? You become exhausted by worry. ? You start to have headaches, feel tense, or have nausea. ? You urinate more than normal. ? You have diarrhea. Get help right away if: ? You have a racing heart and shortness of breath. ? You have thoughts of hurting yourself or others. If you ever feel like you may hurt yourself or others, or have thoughts about taking your own life, get help right away. You can go to your nearest emergency department or call: ? Your local emergency services (911 in the [place] ? A suicide crisis helpline, such as the National Suicide Prevention Lifeline at . This is open 24-hours a day. Summary ? Taking steps to deal with stress can help calm you. ? Medicines cannot cure anxiety disorders, but they can help ease symptoms. ? Family, friends, and partners can play a big part in helping you recover from an anxiety disorder. This information is not intended to replace advice given to you by your health care provider. Make sure you discuss any questions you have with your health care provider. Document Released: 11/02/2017 Document Revised: 11/02/2017 Document Reviewed: 11/02/2017 [employer] Interactive Patient Education ? 2018 [employer]. [facility] - Other Lab [facility] - Other Lab Results [id number]Clinic [facility]on 018 Office/Clinic Note [id number]#[id number] Patient Handouton 08-30-2018 Patient Handout Mental and Behavioral Health Major Depressive Disorder, Adult Major depressive disorder (MDD) is a mental health condition. It may also be called clinical depression or unipolar depression. MDD usually causes feelings of sadness, hopelessness, or helplessness. MDD can also cause physical symptoms. It can interfere with work, school, relationships, and other everyday activities. MDD may be mild, moderate, or severe. It may occur once (single episode major depressive disorder) or it may occur multiple times (recurrent major depressive disorder). What are the causes? The exact cause of this condition is not known. MDD is most likely caused by a combination of things, which may include: ? Genetic factors. These are traits that are passed along from parent to child. ? Individual factors. Your personality, your behavior, and the way you handle your thoughts and feelings may contribute to MDD. This includes personality traits and behaviors learned from others. ? Physical factors, such as: ? Differences in the part of your brain that controls emotion. This part of your brain may be different than it is in people who do not have MDD. ? Long-term (chronic) medical or psychiatric illnesses. ? Social factors. Traumatic experiences or major life changes may play a role in the development of MDD. What increases the risk? This condition is more likely to develop in women. The following factors may also make you more likely to develop MDD: ? A family history of depression. ? Troubled family relationships. ? Abnormally low levels of certain brain chemicals. ? Traumatic events in childhood, especially abuse or the loss of a parent. ? Being under a lot of stress, or long-term stress, especially from upsetting life experiences or losses. ? A history of: ? Chronic physical illness. ? Other mental health disorders. ? Substance abuse. ? Poor living conditions. ? Experiencing social exclusion or discrimination on a regular basis. What are the signs or symptoms? The main symptoms of MDD typically include: ? Constant depressed or irritable mood. ? Loss of interest in things and activities. MDD symptoms may also include: ? Sleeping or eating too much or too little. ? Unexplained weight change. ? Fatigue or low energy. ? Feelings of worthlessness or guilt. ? Difficulty thinking clearly or making decisions. ? Thoughts of suicide or of harming others. ? Physical agitation or weakness. ? Isolation. Severe cases of MDD may also occur with other symptoms, such as: ? Delusions or hallucinations, in which you imagine things that are not real (psychotic depression). ? Low-level depression that lasts at least a year (chronic depression or persistent depressive disorder). ? Extreme sadness and hopelessness (melancholic depression). ? Trouble speaking and moving (catatonic depression). How is this diagnosed? This condition may be diagnosed based on: ? Your symptoms. ? Your medical history, including your mental health history. This may involve tests to evaluate your mental health. You may be asked questions about your lifestyle, including any drug and alcohol use, and how long you have had symptoms of MDD. ? A physical exam. ? Blood tests to rule out other conditions. You must have a depressed mood and at least four other MDD symptoms most of the day, nearly every day in the same 2-week timeframe before your health care provider can confirm a diagnosis of MDD. How is this treated? This condition is usually treated by mental health professionals, such as psychologists, psychiatrists, and clinical social workers. You may need more than one type of treatment. Treatment may include: ? Psychotherapy. This is also called talk therapy or counseling. Types of psychotherapy include: ? Cognitive behavioral therapy (CBT). This type of therapy teaches you to recognize unhealthy feelings, thoughts, and behaviors, and replace them with positive thoughts and actions. ? Interpersonal therapy (IPT). This helps you to improve the way you relate to and communicate with others. ? Family therapy. This treatment includes members of your family. ? Medicine to treat anxiety and depression, or to help you control certain emotions and behaviors. ? Lifestyle changes, such as: ? Limiting alcohol and drug use. ? Exercising regularly. ? Getting plenty of sleep. ? Making healthy eating choices. ? Spending more time outdoors. Treatments involving stimulation of the brain can be used in situations with extremely severe symptoms, or when medicine or other therapies do not work over time. These treatments include electroconvulsive therapy, transcranial magnetic stimulation, and vagal nerve stimulation. Follow these instructions at home: Activity ? Return to your normal activities as told by your health care provider. ? Exercise regularly and spend time outdoors as told by your health care provider. General instructions ? Take [id number] and prescription medicines only as told by your health care provider. ? Do not drink alcohol. If you drink alcohol, limit your alcohol intake to no more than 1 drink a day for non women and 2 drinks a day for men. One drink equals 12 oz of beer, 5 oz of wine, or 1? oz of hard liquor. Alcohol can affect any antidepressant medicines you are taking. Talk to your health care provider about your alcohol use. ? Eat a healthy diet and get plenty of sleep. ? Find activities that you enjoy doing, and make time to do them. ? Consider joining a support group. Your health care provider may be able to recommend a support group. ? Keep all follow-up visits as told by your health care provider. This is important. Where to find more information: National [place] on Mental Illness ? www.mikhail.org [place] National [place] of Mental Health ? www.nimh.[facility].gov National Suicide Prevention Lifeline ? 4-087-170-TALK (7998). This is free, 24-hour help. Contact a health care provider if: ? Your symptoms get worse. ? You develop new symptoms. Get help right away if: ? You self-harm. ? You have serious thoughts about hurting yourself or others. ? You see, hear, taste, smell, or feel things that are not present (hallucinate). This information is not intended to replace advice given to you by your health care provider. Make sure you discuss any questions you have with your health care provider. Document Released: 03/05/2014 Document Revised: 07/15/2017 Document Reviewed: 05/19/2017 [employer] Interactive Patient Education ? 2016 Your [employer]. [facility] Outside [facility] 06-29-2018 Outside Records [id number] 06-28-2018 Outside Records [id number][id number] Vital Signs Date Time Vital Sign Value Performing Clinician Facility 07-28-2024 12:40-0400 Diastolic blood pressure 72 mm[Hg] WILBERTO Villasenor Work Phone: [facility] 07-28-2024 12:40-0400 Heart rate 70 /min WILBERTO Villasenor Work Phone: [facility] 07-28-2024 12:40-0400 Respiratory rate 16 /min WILBERTO Villasenor Work Phone: [facility] 07-28-2024 12:40-0400 SaO2% (BldA) [Mass fraction] 100 % WILBERTO Villasenor Work Phone: [facility] 07-28-2024 12:40-0400 Systolic blood pressure 111 mm[Hg] WILBERTO Villasenor Work Phone: [facility] 07-28-2024 10:38-0400 Body height 160.02 cm WILBERTO Villasenor Work Phone: [facility] 07-28-2024 10:38-0400 Body weight 77.11 kg WILBERTO Villasenor Work Phone: [facility] 07-04-2024 15:03-0400 Body height 161.29 cm [facility] 07-04-2024 15:03-0400 Body mass index (BMI) [Ratio] 29.5 kg/m2 [facility] 07-04-2024 15:03-0400 Body weight 76.65 kg [facility] 07-04-2024 15:03-0400 Diastolic blood pressure 66 mm[Hg] [facility] 07-04-2024 15:03-0400 Heart rate 74 /min [facility] 07-04-2024 15:03-0400 Systolic blood pressure 107 mm[Hg] [facility] 05-11-2024 17:00-0400 Diastolic blood pressure 88 mm[Hg] Ernst Emil [facility] 05-11-2024 17:00-0400 Heart rate 57 /min Ernst Emil [facility] 05-11-2024 17:00-0400 Mean blood pressure 100 mm[Hg] Ernst Emil [facility] 05-11-2024 17:00-0400 SaO2% (BldA) [Mass fraction] 100 % Ernst Emil [facility] 05-11-2024 17:00-0400 Systolic blood pressure 125 mm[Hg] Ernst Emil [facility] 05-11-2024 16:30-0400 Diastolic blood pressure 84 mm[Hg] Ernst Emil [facility] 05-11-2024 16:30-0400 Heart rate 60 /min Ernst Emil [facility] 05-11-2024 16:30-0400 Mean blood pressure 103 mm[Hg] Ernst Emil [facility] 05-11-2024 16:30-0400 Respiratory rate 18 /min Ernst Stein [facility] 05-11-2024 16:30-0400 SaO2% (BldA) [Mass fraction] 97 % Ernst Stein [facility] 05-11-2024 16:30-0400 Systolic blood pressure 140 mm[Hg] Ernst Stein [facility] 05-11-2024 16:00-0400 Diastolic blood pressure 87 mm[Hg] Ernst Stein [facility] 05-11-2024 16:00-0400 Heart rate 55 /min Ernst Stein [facility] 05-11-2024 16:00-0400 Mean blood pressure 101 mm[Hg] Ernst Stein [facility] 05-11-2024 16:00-0400 Systolic blood pressure 130 mm[Hg] Ernst Stein [facility] 05-11-2024 15:22-0400 Body temperature 98.6 [degF] Ernst Stein [facility] 05-11-2024 15:22-0400 Heart rate 77 /min Ernst Stein [facility] 04-11-2024 10:19-0400 Body height 161.29 cm [facility] 04-11-2024 10:19-0400 Body mass index (BMI) [Ratio] 31.7 kg/m2 [facility] 04-11-2024 10:19-0400 Body weight 82.66 kg [facility] 04-11-2024 10:19-0400 Diastolic blood pressure 70 mm[Hg] [facility] 04-11-2024 10:19-0400 Heart rate 78 /min [facility] 04-11-2024 10:19-0400 Respiratory rate 18 /min [facility] 04-11-2024 10:19-0400 SaO2% (BldA) [Mass fraction] 98 % [facility] 04-11-2024 10:19-0400 Systolic blood pressure 120 mm[Hg] [facility] 11-30-2023 00:55-0500 Diastolic blood pressure 75 mm[Hg] DNP Anika Kaple Work Phone: [facility] 11-30-2023 00:55-0500 Heart rate 88 /min DNP Anika Kaple Work Phone: [facility] 11-30-2023 00:55-0500 Respiratory rate 18 /min DNP Anika Kaple Work Phone: [facility] 11-30-2023 00:55-0500 SaO2% (BldA) [Mass fraction] 99 % DNP Anika Kaple Work Phone: [facility] 11-30-2023 00:55-0500 Systolic blood pressure 144 mm[Hg] DNP Anika Kaple Work Phone: [facility] 11-29-2023 19:18-0500 Body height 162.56 cm DNP Anika Kaple Work Phone: [facility] 11-29-2023 19:18-0500 Body temperature 97.4 [degF] DNP Anika Kaple Work Phone: [facility] 11-29-2023 19:18-0500 Body weight 93.1 kg DNP Anika Kaple Work Phone: [facility] 10-08-2023 23:09-0500 Diastolic blood pressure 79 mm[Hg] DNP Anika Kaple Work Phone: [facility] 10-08-2023 23:09-0500 Heart rate 66 /min DNP Anika Kaple Work Phone: [facility] 10-08-2023 23:09-0500 Respiratory rate 16 /min DNP Anika Kaple Work Phone: [facility] 10-08-2023 23:09-0500 SaO2% (BldA) [Mass fraction] 99 % DNP Anika Kaple Work Phone: [facility] 10-08-2023 23:09-0500 Systolic blood pressure 127 mm[Hg] DNP Anika Kaple Work Phone: [facility] 10-08-2023 20:22-0500 Body height 160.02 cm DNP Anika Kaple Work Phone: [facility] 10-08-2023 20:22-0500 Body temperature 98.6 [degF] DNP Anika Kaple Work Phone: [facility] 10-08-2023 20:22-0500 Body weight 98.2 kg DNP Anika Kaple Work Phone: [facility] 05-07-2023 11:45-0400 Body height 160.02 cm Anika Hamiltonle Other [facility] Other 05-07-2023 11:45-0400 Body mass index (BMI) [Ratio] 40.77 kg/m2 Anika Kaple Other [facility] Other 05-07-2023 11:45-0400 Body weight 104.42 kg Anika Kaple Other [facility] Other 05-07-2023 11:45-0400 Diastolic blood pressure 80 mm[Hg] Anika Kaple Other [facility] Other 05-07-2023 11:45-0400 Respiratory rate 18 /min Anika Kaple Other [facility] Other 05-07-2023 11:45-0400 SaO2% (BldA) [Mass fraction] 98 % Anika Villasenor Other [facility] Other 05-07-2023 11:45-0400 Systolic blood pressure 122 mm[Hg] Anika Villasenor Other [facility] Other 04-28-2023 19:35-0400 Body height 162.56 cm DNP Anika Kaple Work Phone: [facility] 04-28-2023 19:35-0400 Body temperature 99.1 [degF] DNP Anika Kaple Work Phone: [facility] 04-28-2023 19:35-0400 Body weight 1005.6 kg DNP Anika Kaple Work Phone: [facility] 04-28-2023 19:35-0400 Diastolic blood pressure 96 mm[Hg] DNP Anika Kaple Work Phone: [facility] 04-28-2023 19:35-0400 Heart rate 95 /min DNP Anika Kaple Work Phone: [facility] 04-28-2023 19:35-0400 Respiratory rate 16 /min DNP Anika Kaple Work Phone: [facility] 04-28-2023 19:35-0400 SaO2% (BldA) [Mass fraction] 98 % DNP Anika Kaple Work Phone: [facility] 04-28-2023 19:35-0400 Systolic blood pressure 171 mm[Hg] DNP Anika Kaple Work Phone: [facility] 04-27-2023 12:55-0400 Body height 160.02 cm Corazon Watkinsley Other [facility] Other 04-27-2023 12:55-0400 Body mass index (BMI) [Ratio] 41.8 kg/m2 Corazon Goodman Other [facility] Other 04-27-2023 12:55-0400 Body temperature 98.9 [degF] Corazon Watkinsley Other [facility] Other 04-27-2023 12:55-0400 Body weight 107.05 kg Corazon Watkinsley Other [facility] Other 04-27-2023 12:55-0400 Respiratory rate 18 /min Corazon Goodman Other [facility] Other 04-27-2023 12:55-0400 SaO2% (BldA) [Mass fraction] 97 % Corazon Goodman Other [facility] Other 03-03-2023 10:15-0400 Body height 160.02 cm Doris Jerica Other [facility] Other 03-03-2023 10:15-0400 Body mass index (BMI) [Ratio] 40.92 kg/m2 Doris Jerica Other [facility] Other 03-03-2023 10:15-0400 Body temperature 97.9 [degF] Doris Jerica Other [facility] Other 03-03-2023 10:15-0400 Body weight 104.78 kg Doris Pizano Other [facility] Other 03-03-2023 10:15-0400 Respiratory rate 18 /min Doris Pizano Other [facility] Other 03-03-2023 10:15-0400 SaO2% (BldA) [Mass fraction] 98 % Doirs Pizano Other [facility] Other 10-06-2022 11:30-0500 Body height 160.02 cm Anika Villasenor Other [facility] Other 10-06-2022 11:30-0500 Body mass index (BMI) [Ratio] 39.59 kg/m2 Anika Villasenor Other [facility] Other 10-06-2022 11:30-0500 Body weight 101.38 kg Anika Villasenor Other [facility] Other 10-06-2022 11:30-0500 Diastolic blood pressure 70 mm[Hg] Anika Villasenor Other [facility] Other 10-06-2022 11:30-0500 Respiratory rate 18 /min Anika Villasenor Other [facility] Other 10-06-2022 11:30-0500 SaO2% (BldA) [Mass fraction] 98 % Anika Villasenor Other [facility] Other 10-06-2022 11:30-0500 Systolic blood pressure 120 mm[Hg] Anika Villasenor Other [facility] Other 06-16-2022 10:40-0400 Body height 160.02 cm Sierra Hardin Other [facility] Other 06-16-2022 10:40-0400 Body mass index (BMI) [Ratio] 37.2 kg/m2 Sierra Hardin Other [facility] Other 06-16-2022 10:40-0400 Body temperature 97.5 [degF] Sierra Hardin Other [facility] Other 06-16-2022 10:40-0400 Body weight 95.26 kg Sierra Hardin Other [facility] Other 06-16-2022 10:40-0400 Diastolic blood pressure 76 mm[Hg] Sierra Hardin Other [facility] Other 06-16-2022 10:40-0400 Respiratory rate 18 /min Sierra Hardin Other [facility] Other 06-16-2022 10:40-0400 SaO2% (BldA) [Mass fraction] 99 % Sierra Hardin Other [facility] Other 06-16-2022 10:40-0400 Systolic blood pressure 116 mm[Hg] Sierra Hardin Other [facility] Other 02-17-2022 11:00-0400 Body height 160.02 cm Ankia Villasenor Other [facility] Other 02-17-2022 11:00-0400 Body mass index (BMI) [Ratio] 33.44 kg/m2 Anika Villasenor Other [facility] Other 02-17-2022 11:00-0400 Body temperature 97.8 [degF] Anika Hamiltonle Other [facility] Other 02-17-2022 11:00-0400 Body weight 85.64 kg Anika Hamiltonsandra Other [facility] Other 02-17-2022 11:00-0400 Diastolic blood pressure 70 mm[Hg] Anika Jacklyn Other [facility] Other 02-17-2022 11:00-0400 Respiratory rate 18 /min Anika Jacklyn Other [facility] Other 02-17-2022 11:00-0400 SaO2% (BldA) [Mass fraction] 97 % Anika Jacklyn Other [facility] Other 02-17-2022 11:00-0400 Systolic blood pressure 118 mm[Hg] Anika Hamiltonsandra Other [facility] Other Encounters Encounter Date Encounter Type Care Provider Facility Start: 07-28-2024 Non-patient / Non-visit DNP Anika Hamiltonsandra Work Phone: [facility] Work Phone: Start: 07-28-2024 End: 07-28-2024 Admission to same day surgery center DNP Anika Hamiltonsandra Work Phone: [facility] Work Phone: Start: 07-28-2024 End: 07-28-2024 ambulatory DNP Anika Villasenor Work Phone: [facility] Work Phone: Start: 07-27-2024 End: 07-27-2024 ambulatory DNP Anika Hamiltonsandra Work Phone: [facility] Work Phone: Start: 07-27-2024 End: 07-27-2024 Departed Referred DNP Anika Villasenor Work Phone: [facility] [place] Work Phone: Start: 07-12-2024 End: 07-12-2024 Departed Referred DNP Anika Villasenor Work Phone: [facility] Start: 07-12-2024 End: 07-12-2024 ambulatory DNP Anika Villasenor Work Phone: [facility] Work Phone: Start: 07-04-2024 End: 07-04-2024 ambulatory [facility] Work Phone: Start: 07-04-2024 End: 07-04-2024 Patient encounter procedure [facility] Work Phone: Start: 06-26-2024 End: 06-26-2024 ambulatory HANK JENNA Not Available Start: 05-11-2024 End: 05-11-2024 Emergency department patient visit Ernst Stein [facility] Start: 04-11-2024 End: 04-11-2024 ambulatory [facility] Work Phone: Start: 04-11-2024 End: 04-11-2024 Patient encounter procedure [facility] [place] Work Phone: Start: 03-12-2024 End: 03-12-2024 Emergency department patient visit ANIKA VILLASENOR [facility] Start: 02-22-2024 End: 02-22-2024 ambulatory HANK JENNA Not Available Start: 11-30-2023 End: 11-30-2023 ambulatory Anika Villasenor Other [facility] Other Start: 11-30-2023 Telephone encounter Anika Hamiltonsandra [facility] [place] Start: 11-29-2023 End: 11-30-2023 Emergency department patient visit DNP Anika Villasenor Work Phone: [facility] Work Phone: Start: 10-11-2023 End: 10-11-2023 ambulatory Anika Villasenor Other [facility] Other Start: 10-11-2023 Telephone encounter Anika Jacklyn [facility] [place] Start: 10-08-2023 End: 10-08-2023 Emergency department patient visit DNP Anika Villasenor Work Phone: [facility] Work Phone: Start: 07-13-2023 End: 07-13-2023 ambulatory Jasbir Barr Other [facility] Other Start: 07-13-2023 Telephone encounter Jasbir Solorzano [facility] Start: 06-15-2023 End: 06-15-2023 ambulatory Jasbir Barr Other [facility] Other Start: 06-15-2023 Telephone encounter Jasbir Solorzano [facility] Start: 05-07-2023 End: 05-07-2023 ambulatory Anika Jacklyn Other [facility] Other Start: 05-07-2023 Office outpatient visit 25 minutes Anika MOYER [facility] [place] Start: 04-28-2023 End: 04-28-2023 Emergency department patient visit DNP Ainka Villasenor Work Phone: [facility] Work Phone: Start: 04-27-2023 End: 04-27-2023 ambulatory Corazon Goodman Other [facility] Other Start: 04-27-2023 Office outpatient visit 15 minutes Corazon Goodman [facility] Start: 03-03-2023 End: 03-03-2023 ambulatory Doris Pizano Other [facility] Other Start: 03-03-2023 Office outpatient visit 15 minutes Doris Pizano [facility] Start: 02-18-2023 End: 02-18-2023 ambulatory Anika Jacklyn Other [facility] Other Start: 02-18-2023 Telephone encounter Anika [facility] [place] Start: 10-06-2022 End: 10-06-2022 ambulatory Anika Villasenor Other [facility] Other Start: 10-06-2022 Office outpatient visit 25 minutes Anika Villasenor [facility] [place] Start: 06-16-2022 End: 06-16-2022 ambulatory Sierra Hardin Other [facility] Other Start: 06-16-2022 Office outpatient visit 15 minutes Sierra Hardin [facility] Start: 02-17-2022 End: 02-17-2022 ambulatory Anika Villasenor Other [facility] Other Start: 02-17-2022 Encounter for genera l adult medical examination without abnormal findings Anika Villasenor [facility] [place] Start: 02-17-2022 Periodic preventive med est patient 18-39 yrs Anika Villasenor [facility] [place] Start: 08-18-2021 End: 08-18-[address] NONE LISTED REQUEST Facility: Start: 12-15-2018 End: 12-15-2018 Patient encounter procedure Sierra Harris Facility:[facility] Start: 12-01-2018 End: 12-01-2018 Patient encounter procedure Sierra Harris Facility: [facility] Start: 10-27-2018 End: 10-27-2018 Patient encounter procedure Sierra Harris Facility: [facility] Start: 10-19-2018 Patient encounter procedure Sierra Harris Facility: [facility] Start: 09-28-2018 End: 09-28-2018 Patient encounter procedure Sierra Harris Facility: [facility] Start: 08-31-2018 End: 08-31-2018 Patient encounter procedure Sierra Harris Facility: [facility] Procedures Date Procedure Procedure Detail Performing Clinician Start: 07-28-2024 Esophagogastroduodenoscopy WILBERTO BoAnika Jacklyn Work Phone: Start: 11-29-2023 Pelvic echography WILBERTO BoAnika Jacklyn Work Phone: Start: 11-29-2023 Computed tomography of abdomen and pelvis with contrast WILBERTO Westonfer Jacklyn Work Phone: Start: 11-29-2023 Blood culture for bacteria, including anaerobic screen WILBERTO Anika Jacklyn Work Phone: Start: 11-29-2023 Urine culture WILBERTO BoAnika Jacklyn Work Phone: Start: 11-29-2023 Transvaginal echography WILBERTO Anika Hamilton sandra Work Phone: Start: 10-08-2023 SARS-CoV-2, Influenza & RSV (PCR) WILBERTO Villasenor Work Phone: Start: 10-08-2023 Urine culture DNP Anika Jacklyn Work Phone: Start: 04-28-2023 SARS-CoV-2, Influenza & RSV (PCR) WILBERTO iVllasenor Work Phone: Plan of Treatment Date Care Activity Detail Author Start: 07-28-2024 [facility] Start: 07-27-2024 [facility] Start: 04-11-2024 Patient referral [facility] Work Phone: Start: 11-29-2023 Pelvic echography US pelvic complete [facility] Start: 11-29-2023 US Pelvis [facility] Start: 11-29-2023 Computed tomography of abdomen and pelvis with contrast CT abdomen pelvis w con [facility] Start: 11-29-2023 CT Abdomen and Pelvis W contrast IV [facility] Start: 11-29-2023 Bacteria identified in Blood by Culture Blood Culture [facility] Start: 11-29-2023 Bacteria identified in Urine by Culture Urine Culture [facility] Start: 11-29-2023 Transvaginal echography US transvaginal [facility] Start: 11-29-2023 US Pelvis transvaginal [facility] Start: 10-08-2023 Bacteria identified in Urine by Culture Urine Culture [facility] Patient Education [facility] Work Phone: Patient referral [facility] Work Phone: [facility] Immunizations Immunization Date Immunization Notes Care Provider Fa jese 12-24-2011 influenza, seasonal, injectable Ernst Stein [facility] Comment on above: Early/Late Reason: M ed Not Available 12-24-2011 tetanus toxoid, redu mekhi diphtheria toxoid, and acellular pertussis vaccine, adsorbed Ernst Stein [facility] Comment on above: Reason for Medicatio n: Other (see comment) Payers Date Payer Category Payer Unknown 2023 Self-pay [id number] 2022 Unknown [id number] 2. [id number] 2017 Unknown [id number] 1992 Unknown [id number] [id number] 1992 Unknown [id number] 2.16.840.1.794944.3.579.2. 1992 Unknown [id number] 2.16.840.1.573662.3.579.2.718 1992 Unknown [id number] 2.16.840.1.496503.3.579.2.718 1992 Unknown [id number] 2.16.840.1.204262.3.579.2.718 1992 Unknown [id number] 2.16.840.1.488614.3.579.2.718 1992 Unknown [id number] 2.16.840.1.350026.3.579.2.593 1992 Unknown [id number] 2.16.840.1.538623.3.579.2.1286 1992 Unknown [id number] 2.16.840.1.664797.3.579.2.727 1992 Unknown [id number] 2.16.840.1.783822.3.579.2.727 1992 Unknown [id number] 2.16.840.1.117474.3.579.2.9 1992 Unknown [id number] 2.16.840.1.509289.3.579.2.9 1992 Unknown [id number] 2.16.840.1.493863.3.579.2.1259 1959 Private Health Insurance [id number] [id number] [facility] [id number] Medicaid [id number] 2. [id number] Unknown [place] [employer]/BS [id number] Unknown [id number] [id number] Unknown [id number] 2.840.1.961257.3.579.2.531 Unknown [id number] 2..840.1.979990.3.579.2.531 Unknown [id number] 2.16.840.1.903904.3.579.2.531 Unknown [id number] 2.16.840.1.130610.3.579.2.531 Social History Date Type Detail Facility Sex Assigned At [facility] Start: 04-28-2023 End: 07-28-2024 Tobacco smoking status NHIS Ex-smoker (finding) [facility] Start: 1990 Sex Assigned At Female F [facility] Start: 10-08-2023 Tobacco smoking stat us MSIS Current some day smoker [facility] Start: 11-29-2023 End: 11-29-2023 Tobacco smoking status MSIS Never smoked tobacco (finding) [facility] Goals Date Patient Goal Desired Activity /State Functional Status Date Assessment Result Facility 05-11-2024 Functional Status N/A [facility] Clinical Notes 02-17-2022 to 07-28-2024 Note Date & Type Note Facility 07-28-2024 Procedure note [facility] 07-04-2024 Evaluation note Authored July 04, 2024 3:55pm 34-year-old female referred to the GI clinic for evaluation of abdominal pain nausea and diarrhea. Patient has been having intermittent episodes of abdominal pain associated with vomiting and diarrhea. She reports 10-15 episodes over the last year. Patient thinks that she is intolerant to gluten lactose and spicy food. CT in 11/2023 showed wall thickening of the ascending colon. Will arrange for EGD/Colonoscopy Will get Labs including CBC with diff, TSH, ESR, CRP, fecal calprotectin HIV ab, Celiac panel [facility] Work Phone: [phone] 888-255506-20-2024 Hospital Discharge instructions Patient Education 05/11/2024 17:51:16 Gastritis, Adult Gastritis, Adult Gastritis is inflammation of the stomach. There are two kinds of gastritis: Acute gastritis. This kind develops suddenly. Chronic gastritis. This kind is much more common. It develops slowly and lasts for a long time. Gastritis happens when the lining of the stomach becomes weak or gets damaged. Without treatment, gastritis can lead to stomach bleeding and ulcers. What are the causes? This condition may be caused by: An infection. Drinking too much alcohol. Certain medicines. These include steroids, antibiotics, and some gqed-dsc-bwqcgoz medicines, such as aspirin or ibuprofen. Having too much acid in the stomach. Having a disease of the stomach. Other causes may include: An allergic reaction. Some cancer treatments (radiation). Smoking cigarettes or the use of products that contain nicotine or tobacco. In some cases, the cause of this condition is not known. What increases the risk? Having a disease of the intestines. Having a disease in which the body's immune system attacks the body (autoimmune disease), such as Crohn's disease. Using aspirin or ibuprofen and other NSAIDs to treat other conditions, such as heart disease or chronic pain. Stress. What are the signs or symptoms? Symptoms of this condition include: Pain or a burning sensation in the upper abdomen. Nausea. Vomiting. An uncomfortable feeling of fullness after eating. Weight loss. Bad breath. Blood in your vomit or stool (feces). In some cases, there are no symptoms. How is this diagnosed? This condition may be diagnosed based on your medical history, a physical exam, and tests. Tests may include: Your medical history and a description of your symptoms. A physical exam. Tests. These can include: ?Blood tests. ?Stool tests. ?A test in which a thin, flexible instrument with a light and a camera is passed down the esophagusand into the stomach (upper endoscopy). ?A test in which a tissue sample is removed to look at it under a microscope (biopsy). How is this treated? This condition may be treated with medicines. The medicines that are used vary depending on the cause of the gastritis. If the condition is caused by a bacterial infection, you may be given antibiotic medicines. If the condition is caused by too much acid in the stomach, you may be given medicines called H2 blockers, proton pump inhibitors, or antacids. Treatment may also involve stopping the use of certain medicines such as aspirin or ibuprofen and other NSAIDs. Follow these instructions at home: Medicines Take ppxy-mxa-egcczkp and prescription medicines only as told by your health care provider. If you were prescribed an antibiotic medicine, take it as told by your health care provider. Do notstop taking the antibiotic even if you start to feel better. Alcohol use Do not drink alcohol if: ?Your health care provider tells you not to drink. ?You are , may be , or are planning to become . If you drink alcohol: ?Limit your use to: ?0 1 drink a day for women. ?0 2 drinks a day for men. ?Know how much alcohol is in your drink. In the [place] one drink equals one 12 oz bottle of beer (355 mL), one 5 oz glass of wine (148 mL), or one 1 oz glass of hard liquor (44 mL). General instructions Eat small, frequent meals instead of large meals. Avoid foods and drinks that make your symptoms worse. Talk with your health care provider about ways to manage stress, such as getting regular exercise or practicing deep breathing, meditation, or yoga. Do not use any products that contain nicotine or tobacco. These products include cigarettes, chewing tobacco, and vaping devices, such as e-cigarettes. If you need help quitting, ask your health careprovider. Drink enough fluid to keep your urine pale yellow. Keep all follow-up visits. This is important. Contact a health care provider if: Your symptoms get worse. Your abdominal pain gets worse. Your symptoms return after treatment. You have a fever. Get help right away if: You vomit blood or a substance that looks like coffee grounds. You have black or dark red stools. You are unable to keep fluids down. These symptoms may represent a serious problem that is an emergency. Do not wait to see if the symptoms will go away. Get medical help right away. Call your local emergency services (911 in the [place] Do not drive yourself to the hospital. Summary Gastritis is inflammation of the lining of the stomach that can occur suddenly (acute) or develop slowly over time (chronic). This condition is diagnosed with a medical history, a physical exam, or tests. This condition may be treated with medicines to treat infection or medicines to reduce the amount of acid in your stomach. Follow your health care provider's instructions about taking medicines, making changes to your diet, and knowing when to call for help. This information is not intended to replace advice given to you by your health care provider. Make sure you discuss any questions you have with your health care provider. Document Revised: 03/14/2022 Document Reviewed: 03/14/2022 [employer] Patient Education 2022 [employer]. 05/11/2024 17:51:16 Nausea and Vomiting, Adult Nausea and Vomiting, Adult Nausea is the feeling that you have an upset stomach or that you are about to vomit. As nausea getsworse, it can lead to vomiting. Vomiting is when stomach contents forcefully come out of your mouthas a result of nausea. Vomiting can make you feel weak and cause you to become dehydrated. Dehydration can make you feel tired and thirsty, cause you to have a dry mouth, and decrease how often you urinate. Older adults and people with other diseases or a weak disease-fighting system (immune system) are at higher risk for dehydration. It is important to treat your nausea and vomiting as told by your health care provider. Follow these instructions at home: Watch your symptoms for any changes. Tell your health care provider about them. Eating and drinking Take an oral rehydration solution (ORS). This is a drink that is sold at pharmacies and retail stores. Drink clear fluids slowly and in small amounts as you are able. Clear fluids include water, ice chips, low-calorie sports drinks, and fruit juice that has water added (diluted fruit juice). Eat bland, fhuf-kv-lannpc foods in small amounts as you are able. These foods include bananas, applesauce, rice, lean meats, toast, and crackers. Avoid fluids that contain a lot of sugar or caffeine, such as energy drinks, sports drinks, and soda. Avoid alcohol. Avoid spicy or fatty foods. General instructions Take cdfe-wws-xrqgtzw and prescription medicines only as told by your health care provider. Drink enough fluid to keep your urine pale yellow. Wash your hands often using soap and water for at least 20 seconds. If soap and water are not available, use hand church organist. Make sure that everyone in your household washes their hands well and often. Rest at home while you recover. Watch your condition for any changes. Take slow and deep breaths when you feel nauseous. Keep all follow-up visits. This is important. Contact a health care provider if: Your symptoms get worse. You have new symptoms. You have a fever. You cannot drink fluids without vomiting. Your nausea does not go away after 2 days. You feel light-headed or dizzy. You have a headache. You have muscle cramps. You have a rash. You have pain while urinating. Get help right away if: You have pain in your chest, neck, arm, or jaw. You feel extremely weak or you faint. You have persistent vomiting. You have vomit that is bright red or looks like black coffee grounds. You have bloody or black stools (feces) or stools that look like tar. You have a severe headache, a stiff neck, or both. You have severe pain, cramping, or bloating in your abdomen. You have difficulty breathing, or you are breathing very quickly. Your heart is beating very quickly. Your skin feels cold and clammy. You feel confused. You have signs of dehydration, such as: ?Dark urine, very little urine, or no urine. ?Cracked lips. ?Dry mouth. ?Sunken eyes. ?Sleepiness. ?Weakness. These symptoms may be an emergency. Get help right away. Call 911. Do not wait to see if the symptoms will go away. Do not drive yourself to the hospital. Summary Nausea is the feeling that you have an upset stomach or that you are about to vomit. As nausea getsworse, it can lead to vomiting. Vomiting can make you feel weak and cause you to become dehydrated. Follow instructions from your health care provider about eating and drinking to prevent dehydration. Take hwdv-xst-rpgvrjh and prescription medicines only as told by your health care provider. Contact your health care provider if your symptoms get worse, or you have new symptoms. Keep all follow-up visits. This is important. This information is not intended to replace advice given to you by your health care provider. Make sure you discuss any questions you have with your health care provider. Document Revised: 05/15/2022 Document Reviewed: 05/15/2022 [employer] Patient Education 2022 [employer]. Follow Up Care 05/11/2024 15:07:18 With:Eric Carmona Address: [address] [place] [address], [address] [phone]- [phone] Business (1) When:05/14/2024 17:37:25 [facility]06-20-2024 Evaluation + Plan note Diagnostic Tests Pending * Urine Culture 05/11/24 [facility]07-25-2023 Evaluation note* Encounter Date Diagnosis Assessment Notes Treatment Notes Treatment Clinical Notes May, Severe obesity (BMI >= 40) (ICD-10 - E66.01) [facility] 06-16-2023 Evaluation note* Encounter Date Diagnosis Assessment Notes Treatment Notes Treatment Clinical Notes Apr, Acute pneumonia (ICD-10 - J18.9) Pneumonia symptoms are for the most part resolved. Completed all of ATBs. She will continue to take deep breaths and cough and notify office should she need anything further with this. Warning s/s reviewed with patient today. Patient to go immediately to the ER should pt experience any of these. Patient verbalizes understanding and agrees to treatment plan. Apr, Weight gain (ICD-10 - R63.5) Refer to weight management. Routine lab work also ordered. Patient is advised to work on healthy diet choices and appropriate servings, weight control, regular exercise as directed, reduced fat intake, and salt avoidance. Patient voiced understanding of this and agrees to this plan. Apr, Severe obesity (BMI >= 40) (ICD-10 - E66.01) See above treatment plan. [facility] 06-06-2023 Evaluation note* Encounter Date Diagnosis Assessment Notes Treatment Notes Treatment Clinical Notes Apr, Viral URI with cough (ICD-10 - J06.9) Discussed with patient exam and history is consistent with viral upper respiratory infection. Discussed viral nature of illness and typical duration of 7 to 14 days. Advised antibiotics unfortunately do not treat viral illnesses. May use symptomatic treatment such as capmist DM Rx. May use Tylenol/ibuprofen for any pain/fever. Follow-up with PCP if not improving over the next 7 days, sooner if significantly worsening symptoms. Discussed laryngitis is viral in nature. Vocal rest encouraged. Warm tea with honey may help. Discussed option of COVID testing. Patient declines. Apr, Sore throat (ICD-10 - J02.9) [facility] 04-12-2023 Evaluation note* Encounter Date Diagnosis Assessment Notes Treatment Notes Treatment Clinical Notes Feb, Left otitis media, unspecified otitis media type (ICD-10 - H66.92) Middle ear infection: adult home care material was printed Drink plenty fluids, get plenty of rest. Take Tylenol or Motrin as needed for aches pains or fevers. Take the amoxicillin and prednisone as prescribed until gone. Use the Flonase nasal inhaler as prescribed until your symptoms improve. Follow-up with your family physician if no improvement in 2 to 3 days Feb, Laryngitis (ICD-10 - J04.0) [facility] 11-15-2022 Evaluation note* Encounter Date Diagnosis Assessment Notes Treatment Notes Treatment Clinical Notes Sep, Milk allergy (ICD-10 - Z91.011) Has anaphylactic reactions to milk and almond milk and products. Due to anaphylaxis reaction, will rx her epi pen as well and she will use this if needed. Benadryl as needed. Has been having skin reactions to her jeans as well. She is to avoid any of these products and will follow up with camp assistant for allergy testing. Referral sent today. Specialty notes reviewed as received. Sep, [place] allergy (ICD-10 - Z91.018) See above treatment plan. Sep, Anaphylaxis, initial encounter (ICD-10 - T78.2XXA) See above treatment plan. [facility] 07-26-2022 Evaluation note* Encounter Date Diagnosis Assessment Notes Treatment Notes Treatment Clinical Notes May, Acute urticaria (ICD-10 - L50.8) Today we are treating for allergic reaction. Recommend to take medication as prescribed and start oral steroid pack in the morning. Start all other medication today. Follow up with primary care provider to discuss reaction. [facility] 03-29-2022 Evaluation note* Encounter Date Diagnosis Assessment Notes Treatment Notes Treatment Clinical Notes Jan, Well adult exam (ICD-10 - Z00.00) Routine lab work ordered today. Continue with eye doctor, dentist and [facility]AL[facility] REP. Patient is advised to work on healthy diet choices and appropriate servings, weight control, regular exercise as directed, reduced fat intake, and salt avoidance. Patient voiced understanding of this and agrees to this plan. Jan, Depression with anxiety (ICD-10 - F41.8) No suicidal or homicidal ideations. She states that she is doing well with her ADHD, anxiety and depression at this time without medication. She would like to continue with counseling and hold off on seeing psychiatrist at this time. She will notify our office should she change her mind. Jan, Attention deficit hyperactivity disorder (ADHD), predominantly inattentive type (ICD-10 - F90.0) No suicidal or homicidal ideations. She states that she is doing well with her ADHD, anxiety and depression at this time without medication. She would like to continue with counseling and hold off on seeing psychiatrist at this time. She will notify our office should she change her mind. 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 She was on Xarelto for a total of 6 months. She stopped it 1 month ago as she had completed her 6 month course. She has no further risk factors for PE and has since stopped oral control and has IUD. She has no symptoms of PE. Will keep her off of Xarelto at this time since her risk is low. She is agreeable to this and understands the risk and treatment plan. Warning s/s reviewed with patient today. Patient to go immediately to the ER should pt experience any of these. Patient verbalizes understanding and agrees to treatment plan. [facility] [employer] Other Evaluation noteNo InformationNort[facility] Services [employer] Other Evaluation noteNo assessment information available [facility] Work Phone: Evaluation note* Diagnosis Onset Date Resolution Status Abdominal bloating acute Abnormal bowel habits acute Chronic nausea acute [facility] Work Phone: Evaluation note* Diagnosis Onset Date Resolution Status Abdominal bloating acute Abnormal bowel habits acute Cannabis use disorder acute Chronic nausea acute Abdominal pain acute Black stools acute Diarrhea acute Nausea & vomiting acute [facility] Work Phone: History and physical note Author Maylin Lazaro [facility] July 28, 2024 11:30am Note Date/Time July 28, 2024 11:30am [facility] [address] [place] [address] Gastroenterology H&P Signed Patient: Luis Miguel Temple MR#: [id number] : 1990 Acct:[id number] Age/Sex: 34 / F Adm Date: 4 Loc: Room: Type: [facility] Attending Dr: Maylin Lazaro MD Copies to: Maylin Lazaro MD NO FAMILY PHYSICIAN~ Date of Service: 07/28/2024 HISTORY & PHYSICAL: Patient's history with special attention to the cardiovascular, pulmonary systems and the current problem was reviewed with the patient immediately prior to the procedure. Present medications and doses reviewed in the EMR. Allergies and pertinent laboratory tests were also reviewedat this time in the EMR. The physical examination, as below, was then performed. Indication, assessment and HPI: 34-year-old female here for EGD for evaluation of abdominal pain and colonoscopy for evaluation of diarrhea and abnormal CT findings Family history of GI malignancy? No PHYSICAL EXAMINATION General appearance: NAD Skin: No jaundice Head: NC/AT Eyes: Anicteric Neck: Supple Lungs: Normal respiratory effort, no use of accessory muscles Abdomen: nondistended Neuro: Ox3. REVIEW OF SYSTEMS Constitutional: Denies malaise, fevers Cardiovascular: Denies chest pain, palpitations Respiratory: Denies shortness of breath, wheezing Gastrointestinal: As per HPI Genitourinary: Denies dysuria, polyuria Musculoskeletal: Denies joint swelling, joint stiffness Neurological: Denies confusion, numbness, tingling Endocrine: Denies fatigue Written informed consent obtained from the patient. Risks (including but not limited to perforation, infection, bloating, bleeding, need for emergent surgeryand loss of life), benefits and alternatives explained and questions answered. The patient verbalized understanding. Based on history patient is an appropriate candidate for the procedure. Maylin Lazaro M.D. Documented By: Maylin Lazaro MD 07/28/24 1129 Signed By: <Electronically signed by Maylin Lazaor MD> 07/28/24 1130 [facility] Work Phone: History general Narrative - Reported* Type Description Date Medical History chronic depression Medical History ANXIETY Medical History ADHD Medical History Bilateral PE Hospitalization History [facility] Other History general Narrative - Reported* Type Description Date Medical History chronic depression Medical History ANXIETY Medical History ADHD Medical History Bilateral PE IN LUNGS Hospitalization History [facility] Other History general Narrative - Reported* Type Description Date Medical History chronic depression Medical History ANXIETY Medical History ADHD Medical History Bilateral PE IN [place]GS Surgical History [place] teeth extraction Hospitalization History [facility] Other Hospital course Narrative No data available for this section [facility] Additional Instructions Push fluids Salt water gargles to soothe your throat Good handwashing Tylenol or Motrin if needed for fever or pain Tessalon Perles to suppress your cough Zyrtec or Claritin mksw-xuj-genhrik daily Flonase may be beneficial Humidifier may be beneficial Return here if any problems persist or worsen as [facility] Work Phone: Hospital Discharge instructions Additional Instructions Take Carafate as prescribed for abdominal pain. Take Phenergan as prescribed for nausea vomiting. Take omeprazole daily. Follow-up with the GI doctor listed below for further evaluation for possible peptic ulcer disease.[facility] Work Phone: Hospital Discharge instructionsAmbulatory Orders* Referral to Gastroenterology Location: None Selected [facility] Work Phone: Progress note No data available for this section [facility] Reason * FU 10/[address] Jaquez for allergy evaluation for peanuts, almonds, milk Diagnosis 1 Milk allergy (Z91.01 1) Referral Organization [facility] Sandra Randall Referring Provider First Name Anika Referring Provider Last Name Jacklyn Referring Provider Specialty Nurse Pract itioner Referred Organization Unknown Facility Referred Provider Eric Jaquez Referred Provider Specialty Allergy/Immu nology Referral Priority Routine General Notes Anne Beck 02:03:12 PM > referral received sent p2p successful per log [facility] Other Summary Purpose Family History No Family History Records Found Relationship Condition Age at Onset Recorded Date/T humberto grandparent Unknown Not Specified Malignant neoplasm of breast Unknown Hypertension Unknown Malignant neoplasm Unknown Relationship Condition Age at Onset Recorded Date/T humberto grandparent Unknown mother Malignant neoplasm of breast Unknown Hypertension Unknown Malignant neoplasm Unknown Relationship Condition Age at Onset Recorded Date/T humberto grandparent Unknown mother Malignant neoplasm of breast Unknown Hypertension Unknown Advance Directives No Advanced Directives Records Found Advance Directive Response Recorded Date/ Time Advance Directives No December 11:12am Advance Directive Response Recorded Date/ Time Advance Directives No December 10:12am Chief Complaint and Reason for Visit Chief Complaint sore throat Chief Complaint n/v, stomach pain Chief Complaint n/v, stomach pain n/v/d Chief Complaint Stomach problems Reason for Visit Abdominal bloating Abnormal bowel habits Chronic nausea Chief Complaint Stomach problems Abd distension, nausea, abnormal bowel habits Reason for Visit Abdominal bloating Abnormal bowel habits Cannabis use disorder Chronic nausea Abdominal pain Black stools Diarrhea Nausea & vomiting Chief Complaint Abd distension, naus ea, abnormal bowel habits Unknown Reason for Visit Abdominal pain Black stools Diarrhea Nausea & vomiting Chief Complaint Abd distension, naus ea, abnormal bowel habits Unknown ab pain, n&V Diarrhea, black stool ab pain, n&V Diarrhea, black stool Reason for Visit Abdominal pain Black stools Diarrhea Nausea & vomiting Additional Source Comments INFORMATION SOURCE (unrecogn ized section and content) DATE CREATED AUTHOR 01/01/2019 [facility] DATE CREATED AUTHOR AUTHOR'S ORGANIZ ATION 08/19/2021 [facility] DATE CREATED AUTHOR AUTHOR'S ORGANIZ ATION 03/12/2024 [facility] DATE CREATED AUTHOR AUTHOR'S ORGANIZ ATION 05/13/2024 [facility] DATE CREATED AUTHOR AUTHOR'S ORGANIZ ATION 05/27/2024 [facility] DATE CREATED AUTHOR AUTHOR'S ORGANIZ ATION 07/14/2024 [facility] DATE CREATED AUTHOR AUTHOR'S ORGANIZ ATION 08/09/2024 [facility] REASON FOR VISIT (unrecogniz ed section and content) AWVRASHSeasonal AllergiesNo InformationLOSS VOICE, SINUS CONGESTION, COUGHSTREP OR SOMETHING CAUSING LARYNGITISFOLLOW UP UPPER REPAS MedicationAMS Saxenda [id number] Care Teams (unrecognized sec tion and content) Team Status: Active Member Role Status Dates nAika Villasenor DNP Primary Care Provider Active Team Status: Inactive Member Role Status Dates Anika Villasenor DNP Primary Care Provider Active Laura Corley , BUS WASHER Emergency Provider Active Team Status: Inactive Member Role Status Dates Anika Villasenor DNP Primary Care Provider Active Handy Mcnulty DO Emergency Provider Active Team Status: Inactive Member Role Status Dates Anika Villasenor DNP Primary Care Provider Active Marisol Alexis DO Emergency Provider Active Team Status: Inactive Member Role Status Dates Anika Villasenor DNP Primary Care Provider Active Start: October 08, 2023 End: October 08, 2023 Handy Mcnulty DO Emergency Provider Active Start: October 08, 2023 End: October 08, 2023 Team Status: Inactive Member Role Status Dates Anika Villasenor DNP Primary Care Provider Active Start: November 29, 2023 End: November 30, 2023 Marisol Alexis DO Emergency Provider Active Sta rt: November 29, 2023 End: November 30, 2023 Team Status: Inactive Member Role Status Dates Anika Villasenor DNP Primary Care Provid er, Attending Provider Active Start: April 11, 2024 End: April 11, 2024 Team Status: Inactive Member Role Status Dates Anika Villasenor DNP Primary Care Provider Active Start: July 04, 2024 End: July 04, 2024 Maylin Lazaro MD Attending Provider Active Start: July 04, 2024 End: July 04, 2024 Team Status: Inactive Member Role Status Dates Anika Villasenor DNP Primary Care Provider Active Start: July 12, 2024 End: July 12, 2024 Hank Baker DO Attending Provider Active Start : July 12, 2024 End: July 12, 2024 Team Status: Inactive Member Role Status Dates Maylin Lazaro MD Attending Provider Active Start: July 27, 2024 End: July 27, 2024 Team Status: Active Member Role Status Dates PHYSICIAN NO FAMILY Primary Care Provider Active Team Status: Inactive Member Role Status Dates Maylin Lazaro MD Attending Provider Active Start: July 28, 2024 End: July 28, 2024 PHYSICIAN NO FAMILY Primary Care Provider Active Start: July 28, 2024 End: July 28, 2024 Team Status: Active Member Role Status Dates Maylin Lazaro MD Attending Provider, Other Provider Active Start: July 28, 2024 PHYSICIAN NO FAMILY Primary Care Provider Active Start: July 28, 2024 Goals (unrecognized section and content) Goals may be documented in a n alternate section FOR RECORDS PERTAINING TO PATIENTS WHO ARE OR HAVE BEEN ENROLLED IN A CHEMICAL DEPENDENCY/SUBSTANCEABUSE PROGRAM, SOME INFORMATION MAY BE OMITTED. This clinical summary was aggregated from multiple sources. Caution should be exercised in using it in the provision of clinical care. This summary normalizes information from multiple sources, and as a consequence, information in this document may materially change the coding, format and clinical context of patient data. In addition, data may be omitted in some cases. CLINICAL DECISIONS SHOULD BE BASED ON THE PRIMARY CLINICAL RECORDS. [facility] [employer] [facility]. provides no warranty or guarantee of the accuracy or completeness of information in this document.
[2024-08-11 06:25] LABS: Basophils Percent Auto 0.8 % (0.2-2.0); Eosinophils Absolute Auto 0.5 10^3/uL (0.0-0.7); Eosinophils Percent Auto 10.1 % (0.9-7.0); Hematocrit 42.1 % (36.0-48.0); Hemoglobin 13.8 g/dL (12.0-16.0); Immature Granulocytes Abs Auto 0.01 10^3/uL (0.00-0.03); Immature Granulocytes Pct Auto 0.2 % (0.0-0.5); Mean Corpuscular HGB Conc 32.8 g/dL (29.9-35.2); Mean Corpuscular Hemoglobin 30.7 pg (26.7-34.0); Mean Corpuscular Volume 93.8 fL (81.0-99.0); Mean Platelet Volume 10.4 fL (9.5-13.5); Monocytes Absolute Auto 0.6 10^3/uL (0.3-0.8); Neutrophils Absolute Auto 2.8 10^3/uL (1.4-6.5); Neutrophils Percent Auto 55.9 % (43.0-75.0); Platelet Count 238 10^3/uL (150-450); Red Blood Count 4.49 10^6/uL (4.20-5.40); Red Cell Distribution Width 12.6 % (11.0-15.0); White Blood Count 4.9 10^3/uL (4.0-11.0)
[2024-08-11 06:46] LABS: HCG Quantitative <1 mIU/mL
[2024-08-11] MEDS: LACTATED RINGER'S SOLUTION 1,000 ML 50 ML IV ×2 (06:48→08:25)
--- NOTE | 2024-08-11 08:45 | P.ON_ITS ---
Brief Operative Note Date of procedure: 08/11/24 Pre-op diagnosis general: aub, desires Post-op diagnosis: same as pre-op Procedure: NAME OF PROCEDURE: robotic assisted Laparoscopic bilateral salpingectomy, with Keyana endometrial ablation with hysteroscopy, removal of iud PROCEDURE: The patient was taken back to the OR where she was prepped and draped in the normal sterile fashion after being placed in the dorsal lithotomy position, after being placed under general anesthesia without difficulty. a weighted speculum was then placed into the vagina. Pap and endometrial bx were performed without difficultyThe anterior lip was grasped with a single tooth tenaculum. The patient was then sounded to approximatley 9cm. The patient was gently sounded using Hegar dilators and the hysteroscope was passed through the cervix into the uterus where both ostia were seen. No gross evidence of polyps, fibroids or malignancy. The cervical length was noted to be 4cm. The Keyana ablation apparatus was set to approximately 5cm in length. This was placed in through the cervix and into the uterus. After the seal was tested, at that time the total ablation of 120 seconds was performed with the Keyana without difficu lty. All instruments were removed from the vagina. Please note iud was removed prior to ablation A wet sponge stick was placed into the patient's vagina. Attention was then turned to the patient's abdomen, where a scalpel was used to make a small infraumbilical incision. The S retractors were then used to dissect the underlying layers until the fascia could be seen. The fascia was then grasped w ith Kary clamps and tented up. A knife was then used to make a small incision to the fascia. The muscle was identified, at that time two sutures of #0 Vicryl on a GI needlewas then used and placed through the fascia. The peritoneum was then identified and entered bluntly. The 10-4 Aidan was then placed into the patient's abdomen. This was confirmed with direct visualization of the bowel, using the laparoscope. The patient's abdomen was then insufflated using approximately 4 liters of CO2 gas. Survey of the patient's abdomen demonstrated normal appearing ovaries, uterus and tubes. A second and third lateral robotic ports, which was 8mm in size, was then placed laterally after incision was made in the skin under direct visualization. the robotic arms were engaged. The patient's tube on the patient's right side was identified. The tube was then tented up using a grasper. The ligasure was used to transect and coagulate the mesosalpingx from the fimbriated end to the insertion at the uterus, the tube was amputated and removed in its entirety.? Excellent hemostasis was noted. ?This was performed on the contralateral sideas well. The lateral ports were then moved under direct visualization with excellent hemostasis. The abdomen was deinsufflated. All instruments were removed from the patient's abdomen. The fascia was closed using the #0 Vicryl on GI needle. The skin was closed using 4- 0 Vicryl subcuticularly. All instruments were removed from the patient's vagina as well. The patient was taken out of the dorsal lithotomy position and placed in the supine position and taken to recovery in stable condition. Sponge, lap and needle counts were correct x2. ??? Anesthesia: JOLIE Surgeon: Hank Baker Lead Nitrate Processor: Robina Lemus Estimated blood loss (mL): 5 Pathology: other (tubes) Condition: stable Disposition: PACU Urinary Catheter Management Urinary Catheter Management Urethral: Cath placed during this visit: no
[2024-08-11] MEDS: PROMETHAZINE HCL 25 MG TABLET PO (10:47)
[2024-08-11] MEDS: LACTATED RINGER'S SOLUTION 1,000 ML 150 ML IV (11:00)
== END 2024-08-11 12:20 | disposition home or self-care (01) ==
PROVIDERS: Visit Provider Obstetrics & Gynecology
PROC: (CPT 840; principal; 2024-08-11 07:30)
DX: Z30.2 Encounter for sterilization (principal); N92.0 Excessive and frequent menstruation with regular cycle; N93.9 Abnormal uterine and vaginal bleeding, unspecified; R10.2 Pelvic and perineal pain; Z30.432 Encounter for removal of intrauterine contraceptive device; N83.8 Other noninflammatory disorders of ovary, fallopian tube and broad ligament; F17.210 Nicotine dependence, cigarettes, uncomplicated; K21.9 Gastro-esophageal reflux disease without esophagitis; Z86.718 Personal history of other venous thrombosis and embolism; F41.9 Anxiety disorder, unspecified; F32.A Depression, unspecified
CPT/HCPCS: 58301; 58563; 58661; 36415; 84702; 85025; 88302; J0131; J1100; J1170; J1885; J2250; J2405; J2704; J3010; Q0169